=== PATIENT | female | born 1970 | race Caucasian/White ===

== ENCOUNTER → 2016-10-29 | Outpatient (CLI) | payer BC ==
[2016-10-29 14:35] VITALS: BP 132/85; PULSE 77; RESP 16; TEMP 98.3; BMI 36.6
[2016-10-29 15:04] LABS: EKG EKG PERFORMED
[2016-10-29 15:42] LABS: CH 31.5; CHCM 34.1; HCT 42.9 % (34.0-46.0); HDW 2.48; HGB 14.3 gm/dL (11.4-16.0); MCHC 33.4 g/dL (31.0-37.0); MCV 92.7 fL (80.0-100.0); Mean Platelet Volume 7.1; RBC 4.62 m/uL (3.80-5.40); RDW 12.7 % (11.5-15.5); WBC 7.2 k/uL (3.8-10.6)
[2016-10-29 16:07] LABS: ALT 76 U/L (9-52); AST 56 U/L (14-36); Alkaline Phosphatase 83 U/L (38-126); Blood Urea Nitrogen 14 mg/dL (7-17); Calcium 9.5 mg/dL (8.4-10.2); Carbon Dioxide 27 mmol/L (22-30); Chloride 105 mmol/L (98-107); Cholesterol 273 mg/dL (<200); Glucose 89 mg/dL (74-99); HDL Cholesterol 64 mg/dL (40-60); Iron 107 ug/dL (37-170); Non-African American GFR(MDRD) >60 (>60 ml/min/1.73 sqM); Potassium 4.7 mmol/L (3.5-5.1); Total Bilirubin 0.6 mg/dL (0.2-1.3); Total Protein 7.8 g/dL (6.3-8.2); Triglycerides 415 mg/dL (<150)
[2016-10-29 16:16] LABS: % Iron Saturation 31.6 % (20-50); Total Iron Binding Capacity 339 ug/dL (265-497)
[2016-10-29 16:46] LABS: Anion Gap 10 mmol/L; Sodium 142 mmol/L (137-145)
[2016-10-29 17:13] LABS: Vitamin B12 616 pg/mL (239-931)
[2016-10-29 20:28] LABS: Hemoglobin A1C 4.9 % (4.2-6.1)
--- NOTE | 2016-12-14 21:39 | P.PN ---
Progress Note - Text DATE OF CONSULTATION: 10/29/2016. CHIEF COMPLAINT: Initial bariatric assessment. HISTORY OF PRESENT ILLNESS: Kayy Dean is a 46-year-old female who presents for her initial evaluation for weight loss procedures. At present she is evaluating for gastric bypass. She reports having family friend who also had a bariatric procedure. She also reports a strong family history of morbid obesity in her brother, daughter including her mother. She attempted weight loss in the past including [employer], [employer] [place] and has been able to lose anywhere between 25 to 30 pounds. Her highest weight is at present, 238 pounds. Her personal goal is get down to 160 pounds. As a result of her obesity, she reports severe lower back pain. She is also recommended to undergo a spinal fusion. She reports osteoarthritis of both hips--left side is worse than the right. She also reports bilateral knee pain--worse on the right. She also has bilateral ankle swelling. She denies any familial history of esophageal or stomach cancer. No personal history of inflammatory bowel disease are within her family. She denies any food allergies or lupus. No reports of diabetes in her family with the exception of hypertension. She does have known history of diverticulosis. Separately, she reports that she has her gallbladder removed. At her height of 5 feet 6 inches, her ideal body weight is 154 pounds. She is 73 pounds overweight. Present body mass index is 36.6. PAST MEDICAL HISTORY: 1. Osteoarthritis of the bilateral knees. 2. Diverticulosis. 3. Psoriasis. PAST SURGICAL HISTORY: 1. Cholecystectomy. 2. Hysterectomy. 3. Back surgery. 4. Appendectomy. FAMILY HISTORY: Pertinent for hypertension including morbid obesity. SOCIAL HISTORY: Lifelong nontobacco user. REVIEW OF SYSTEMS: CONSTITUTIONAL: [place] body weight for her 5'6" frame 154 pounds. She comes in weighing 227 pounds. She is 73 pounds overweight. Body mass is 36.6. HEENT: Denies any problems with vision, hearing. No reports of dysphagia. ENDOCRINE: No reports of thyroid disorder or diabetes type 2. RESPIRATORY: Denies history of pneumonia or dyspnea on exertion. CARDIOVASCULAR: No reports of chest pain or heart attack. GASTROINTESTINAL: Denies any dumping syndrome, diarrhea, constipation. MUSCULOSKELETAL: Has severe osteoarthritis of the bilateral knees including of the lower back. PSYCH: No reports of depression or suicidal ideation. HEMATOLOGIC: No reports of DVTs or anemia. PHYSICAL EXAM: VITAL SIGNS: 98.3, 77, 16, 132/85, 5 feet 6 inches, 227 pounds. Body mass is 36.6. GENERAL: Well-developed female in no acute distress. HEENT: No scleral icterus. Extraocular movements grossly intact. Moist buccal mucosa. NECK: Supple without lymphadenopathy. CHEST: Nonlabored respirations. Equal bilateral excursions. CARDIOVASCULAR: Regular rate and rhythm. ABDOMEN: Soft, nontender, nondistended. MUSCULOSKELETAL: Pinpoint tenderness along the lower back. NEURO: No focal or lateralizing signs. Cranial nerves II through XII grossly within normal limits. PSYCH: Alert and oriented to person, place, and time. LABS: Hemoglobin normal at 14.3. Hemoglobin A1c normal at 4.9. AST elevated at 56. ALT elevated at 76. Triglycerides elevated at 415. Cholesterol elevated at 273. HDL elevated at 64. Vitamin D low at 10.7. EKG demonstrates normal sinus rhythm. ASSESSMENT: 1. Morbid obesity due to excess calories. 2. Body mass index of 36.6. 3. 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 4. 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 5. 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 6. Family history of morbid obesity. 7. Personal history of diverticulitis. 8. Hyperlipidemia. 9. Elevated AST. 10. Elevated ALT. 11. Vitamin D deficiency. 12. Hypertension. PLAN: 1. Her laboratory results demonstrates severe hypertriglyceridemia including hypercholesterolemia and may benefit from medicinal therapy. 2. She has severe vitamin D deficiency for which vitamin D supplement advised. 3. She is evaluating for weight loss procedures for which she is looking into gastrectomy-type options. [place] [facility] data was reviewed, including benefits and risks of each and potential weight loss. 4. Will need psych assessment per insurance guidelines. 5. Will need medical risk assessment per insurance guidelines. 6. With her history of elevated liver enzymes, may also benefit from an ultrasound. 7. Recommended follow-up upon completion of her bariatric profile. 8. Recommend upper endoscopy for gastrectomy procedures.
== END | disposition home or self-care (01) ==
LOC: BARWHC3 13:59
PROVIDERS: ATTEND Surgery Plastic and Reconstructive Surgery
DX: Z01.818 Encounter for other preprocedural examination (principal); E66.01 Morbid (severe) obesity due to excess calories; E89.1 Postprocedural hypoinsulinemia; D50.8 Other iron deficiency anemias; E44.0 Moderate protein-calorie malnutrition; E55.9 Vitamin D deficiency, unspecified; G47.30 Sleep apnea, unspecified; Z68.38 Body mass index [BMI] 38.0-38.9, adult
CPT/HCPCS: 36415; 80053; 80061; 82306; 82607; 82728; 82746; 83036; 83540; 83550; 84425; 84443; 85027; 93005; 99201

== ENCOUNTER 2017-04-08 08:26 | Day surgery (SDC) | payer BC ==
[2017-03-16 15:21] VITALS: BMI 36.6
[~2017-04-08 08:26] MED LIST: LACTATED RINGERS 1,000 ML IV SCH; LIDOCAINE 1% 20 ML VIAL (10MG/ML) FOR IV START INTRADERMA PRN
--- NOTE | 2017-04-08 09:03 | P.GSHP ---
History of Present Illness H&P Date: 04/08/17 CHIEF COMPLAINT: GERD and colon screen HISTORY OF PRESENT ILLNESS: The patient is a 47-year-old female who presents reports gastroesophageal reflux disease and need for colon screen. Upper and lower endoscopy were offered for further evaluation and management. PAST MEDICAL HISTORY: Please see list. PAST SURGICAL HISTORY: Please see list. MEDICATIONS: Please see list. ALLERGIES: Please see list. SOCIAL HISTORY: No illicit drug use FAMILY HISTORY: No reports of Crohn disease or ulcerative colitis. REVIEW OF ORGAN SYSTEMS: CONSTITUTIONAL: No reports of fevers or chills. GI: Denies any blood in stools or constipation. PHYSICAL EXAM: VITAL SIGNS: Stable GENERAL: Well-developed pleasant in no acute distress. HEENT: No scleral icterus. Extraocular movements grossly intact. Moist buccal mucosa. NECK: Supple without lymphadenopathy. CHEST: Unlabored respirations. Equal bilateral excursions. CARDIOVASCULAR: Regular rate and rhythm. Distal 2+ pulses. ABDOMEN: Soft, nondistended. MUSCULOSKELETAL: No clubbing, cyanosis, or edema. ASSESSMENT: 1. Gastroesophageal reflux disease 2. Colon screen. PLAN: 1. Recommend proceeding with an upper and lower endoscopy Past Medical History Past Medical History: Cancer, Chest Pain / Angina, Skin Disorder, Thyroid Disorder Additional Past Medical History / Comment(s): psoriasis, hx migraines, diverticulitis, hx cervical cancer, vit D deficiency, recent episode of chest pain, HAD STRESS TEST THAT WAS NEGATIVE History of Any Multi-Drug Resistant Organisms: MRSA Date of last positivie culture/infection: 2010 MDRO Source:: rt axilla Past Surgical History: Appendectomy, Back Surgery, Cholecystectomy, Hysterectomy Additional Past Surgical History / Comment(s): laminectomy Past Anesthesia/Blood Transfusion Reactions: Motion Sickness Past Psychological History: Anxiety Smoking Status: Never smoker Past Alcohol Use History: Rare Past Drug Use History: None Reported - Past Family History Mother Family Medical History: Cancer Medications and Allergies Home Medications Medication Instructions Recorded Confirmed Type HYDROcodone/APAP 10-325MG [[place] 1 tab PO TID PRN 09/24/16 04/06/17 History 10-325] Ibuprofen [Motrin] 800 mg PO HS 03/16/17 04/06/17 History Vitamin D(Dose Unknown) 1 tab PO DAILY 03/16/17 04/06/17 History Westhroid 1 tab PO DAILY 03/16/17 04/06/17 History Allergies Allergy/AdvReac Type Severity Reaction Status Date / Time No Known Allergies Allergy Verified 04/08/17 09:02
[2017-04-08 09:15] VITALS: RESP 16; TEMP 98.4
[2017-04-08] MEDS: LACTATED RINGERS 1,000 ML IV SCH ×2 (09:15→09:55)
[2017-04-08] MEDS ORDERED: PROPOFOL 10 MG/ML 20 ML VIAL IV ONE (09:57)
[2017-04-08] MEDS ORDERED: LIDOCAINE 1% INJ 10MG/ML (20 ML MDV) ONE (09:57)
--- NOTE | 2017-04-08 10:10 | P.PCN ---
Date of Procedure: 04/08/17 Preoperative Diagnosis: Postoperative Diagnosis: Procedure(s) Performed: Implants: Indications for Procedure: Operative Findings: Description of Procedure: PREOPERATIVE DIAGNOSIS: Gastroesophageal reflux disease. Morbid obesity. POSTOPERATIVE DIAGNOSIS: Morbid obesity. Gastritis. Gastroesophageal reflux disease. Acute on chronic gastric ulcer along the antrum. Gastric polyps. OPERATION: Esophagogastroduodenoscopy with biopsies along antrum. SURGEON: Lidia Fiore MD ANESTHESIA: MAC. INDICATIONS: The patient is a 47-year-old female who presents with a history of reflux disease. Benefits and risks of the procedure were described. Informed consent was obtained. DESCRIPTION: The patient was brought into the endoscopy suite and laid in the left lateral decubitus position. An Olympus gastroscope was passed along the posterior oropharynx down to the distal esophagus where the squamocolumnar junction was encountered at 35 cm from the incisors. The stomach was entered and no bile reflux was found. Additional findings are listed below. Biopsies with cold forceps were obtained of the antrum. The first through third portion of the duodenum was examined and unremarkable. Retroflexion of the scope confirmed Hill grade 3 lower esophageal valve. The squamocolumnar junction no acute LA grade A erosive esophagitis. The stomach was desufflated. The patient tolerated the procedure well. FINDINGS: Squamocolumnar junction 38 cm from the incisors. Diaphragmatic hiatus at 38 cm. Hill grade 3 lower esophageal valve. No LA grade A erosive esophagitis. No active duodenitis. Acute and chronic gastric ulcer 3 mm along antrum biopsied. Diffuse gastritis along the antrum. Gastric polyps along gastric fundus, hyperplastic type 4 mm in size. RECOMMENDATIONS: Start medical therapy. Further recommendations pending results of pathology report. Upper endoscopy as needed. Plan - Discharge Summary New Discharge Prescriptions: No Action HYDROcodone/APAP 10-325MG [[place] 10-325] 1 tab PO TID PRN PRN Reason: Pain Westhroid 1 tab PO DAILY Ibuprofen [Motrin] 800 mg PO HS Vitamin D(Dose Unknown) 1 tab PO DAILY Discharge Medication List HYDROcodone/APAP 10-325MG [[place] 10-325] 1 tab PO TID PRN 09/24/16 [History] Ibuprofen [Motrin] 800 mg PO HS 03/16/17 [History] Vitamin D(Dose Unknown) 1 tab PO DAILY 03/16/17 [History] Westhroid 1 tab PO DAILY 03/16/17 [History]
--- NOTE | 2017-04-08 10:25 | P.PCN ---
Date of Procedure: 04/08/17 Preoperative Diagnosis: Postoperative Diagnosis: Procedure(s) Performed: Implants: Indications for Procedure: Operative Findings: Description of Procedure: PREOPERATIVE DIAGNOSIS: Diverticulitis. POSTOPERATIVE DIAGNOSIS: Diverticulosis, scattered. OPERATION: Colonoscopy to the ileocecal valve and appendiceal orifice. SURGEON: Lidia Fiore MD. ANESTHESIA: MAC. INDICATIONS: The patient is a 47-year-old female who presents with history of diverticulitis. Benefits and risks were described and informed consent was obtained. DESCRIPTION OF PROCEDURE: The patient had undergone Gatorade, MiraLAX and Dulcolax prep. She had been brought into the operating room and laid in the left lateral decubitus position. After adequate intravenous sedation, the rectum was examined with 2% lidocaine jelly. No external hemorrhoids were encountered. The rectal tone was within normal limits. No lesions were palpated in the rectal vault. An Olympus colonoscope was advanced until the ileocecal valve and appendiceal orifice were clearly viewed. The prep was excellent with clear visualization of the mucosal folds. The scope was removed with visualization of each mucosal fold. Scattered diverticulosis was encountered. Mild narrowing at 20 cm from the anal verge was found. No colonic polyps were found. No evidence of focal colitis was found. Retroflexion of the scope demonstrated grade 1 internal hemorrhoids without active bleeding or inflammation. The colon was desufflated. The patient had tolerated the procedure well. Withdrawal time was over 6 minutes. FINDINGS: Internal hemorrhoids, grade 1 No external prolapsed hemorrhoids. No arteriovenous malformations. No adenomatous polyps. No focal colitis. Scattered diverticulosis. Mild narrowing at 20 cm from the anal verge was found. RECOMMENDATIONS: Lower endoscopy in 10 years per screening guidelines, 2026.
[2017-04-08 11:33] VITALS: BP 129/73; PULSE 79
== END 2017-04-08 11:28 | disposition home or self-care (01) ==
LOC: ORWHC2ENDO 08:26
PROVIDERS: ATTEND Surgery Plastic and Reconstructive Surgery
DX: Z12.11 Encounter for screening for malignant neoplasm of colon (principal); K29.50 Unspecified chronic gastritis without bleeding; K57.30 Diverticulosis of large intestine without perforation or abscess without bleeding; K64.0 First degree hemorrhoids; K21.9 Gastro-esophageal reflux disease without esophagitis; K25.3 Acute gastric ulcer without hemorrhage or perforation; K25.7 Chronic gastric ulcer without hemorrhage or perforation; K31.7 Polyp of stomach and duodenum; E66.01 Morbid (severe) obesity due to excess calories; E07.9 Disorder of thyroid, unspecified; F41.9 Anxiety disorder, unspecified; Z86.14 Personal history of Methicillin resistant Staphylococcus aureus infection; Z79.1 Long term (current) use of non-steroidal anti-inflammatories (NSAID); Z79.899 Other long term (current) drug therapy
CPT/HCPCS: 88305; 88342; 43239; J2001; J2704; G0121

== ENCOUNTER → 2017-05-13 | Outpatient (CLI) | payer BC ==
[2017-05-13 15:52] VITALS: BP 115/72; PULSE 91; TEMP 98.1; BMI 37.5
--- NOTE | 2017-06-06 18:07 | P.PN ---
Progress Note - Text DATE OF CONSULTATION: 05/13/2017. CHIEF COMPLAINT: Bariatric assessment. HISTORY OF PRESENT ILLNESS: Kayy Dean is a 46-year-old female who presents is evaluating for gastric bypass. She presented to the bariatric Center in October 2016. At her height of 5 foot 6 inches, her ideal body weight is 154 pounds. Her highest weight was 238 pounds. Today she is 232 pounds. Her body mass index is reduced from 38.5 to 37.6. She is 78 pounds overweight. Since her last evaluation, she was started on thyroid medications. As a result of her obesity, she developed osteoarthritis of the bilateral lower extremities including sleep apnea. PAST MEDICAL HISTORY: 1. Osteoarthritis of the bilateral knees. 2. Diverticulosis. 3. Psoriasis. 4. Hypertriglyceridemia. 5. Hypercholesterolemia. 6. Vitamin D deficiency. PAST SURGICAL HISTORY: 1. Cholecystectomy. 2. Hysterectomy. 3. Back surgery. 4. Appendectomy. MEDICATIONS: 1. Synthroid. 2. Vitamin D. 3. [place]. 4. Omeprazole. FAMILY HISTORY: Pertinent for hypertension including morbid obesity. SOCIAL HISTORY: Lifelong nontobacco user. REVIEW OF SYSTEMS: CONSTITUTIONAL: [place] body weight for her 5'6" frame 154 pounds. She comes in weighing 227 pounds. She is 73 pounds overweight. Body mass is 36.6. HEENT: Denies any problems with vision, hearing. No reports of dysphagia. ENDOCRINE: No reports of diabetes type 2. New diagnosis of hypothyroidism. RESPIRATORY: Denies history of pneumonia or dyspnea on exertion. CARDIOVASCULAR: No reports of chest pain or heart attack. Hypercholesterolemia including elevated triglycerides. EKG demonstrates normal sinus rhythm. GASTROINTESTINAL: Denies any dumping syndrome, diarrhea, constipation. Has diverticulitis. MUSCULOSKELETAL: Has severe osteoarthritis of the bilateral knees including of the lower back. PSYCH: No reports of depression or suicidal ideation. HEMATOLOGIC: No reports of DVTs or anemia. SKIN: No rash or skin cancer. PHYSICAL EXAM: VITAL SIGNS: 5 feet 6 inches, 232 pounds. Body mass is 37.6. Vital Signs Temp 98.1 F 05/13/17 15:48 Pulse 91 05/13/17 15:48 Resp BP 115/72 05/13/17 15:48 Pulse Ox GENERAL: Well-developed female in no acute distress. HEENT: No scleral icterus. Extraocular movements grossly intact. Moist buccal mucosa. NECK: Supple without lymphadenopathy. CHEST: Nonlabored respirations. Equal bilateral excursions. CARDIOVASCULAR: Regular rate and rhythm. ABDOMEN: Soft, nontender, nondistended. MUSCULOSKELETAL: Pinpoint tenderness along the lower back. NEURO: No focal or lateralizing signs. Cranial nerves II through XII grossly within normal limits. PSYCH: Alert and oriented to person, place, and time. SKIN: Well perfused. Good skin turgor. EGD FINDINGS: Squamocolumnar junction 38 cm from the incisors. Diaphragmatic hiatus at 38 cm. Hill grade 3 lower esophageal valve. No LA grade A erosive esophagitis. No active duodenitis. Acute and chronic gastric ulcer 3 mm along antrum biopsied. Diffuse gastritis along the antrum. Gastric polyps along gastric fundus, hyperplastic type 4 mm in size. ASSESSMENT: 1. Morbid obesity due to excess calories. 2. Body mass index of 36.6. 3. 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 4. 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 5. 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 6. Family history of morbid obesity. 7. Personal history of diverticulitis. 8. Hyperlipidemia. 9. Elevated AST. 10. Elevated ALT. 11. Vitamin D deficiency. 12. Hypertension. 13. Hypercholesterolemia. 14. Metabolic syndrome. 15. Diverticulosis. 16. Chronic gastritis. 17. Hypothyroidism. PLAN: 1. She reports trouble with sleeping recommend evaluation for sleep apnea. 2. An increased dose of vitamin D was written on her behalf. 3. Recommend completion of medical supplies weight loss. 4. Psych assessment per discharge guidelines. 5. Medical risk assessment pending. 6. She has completed an upper endoscopy with no contraindication to gastrectomy type procedures at this time such as a sleeve gastrectomy.
== END | disposition home or self-care (01) ==
LOC: BARWHC3 14:39
PROVIDERS: ATTEND Surgery Plastic and Reconstructive Surgery
DX: Z01.818 Encounter for other preprocedural examination (principal); E66.01 Morbid (severe) obesity due to excess calories; M47.816 Spondylosis without myelopathy or radiculopathy, lumbar region; M17.0 Bilateral primary osteoarthritis of knee; M16.0 Bilateral primary osteoarthritis of hip; E78.5 Hyperlipidemia, unspecified; R74.8 Abnormal levels of other serum enzymes; E55.9 Vitamin D deficiency, unspecified; I10 Essential (primary) hypertension; E78.00 Pure hypercholesterolemia, unspecified; E88.81 Metabolic syndrome and other insulin resistance; K57.90 Diverticulosis of intestine, part unspecified, without perforation or abscess without bleeding; K29.50 Unspecified chronic gastritis without bleeding; E03.9 Hypothyroidism, unspecified; Z68.36 Body mass index [BMI] 36.0-36.9, adult
CPT/HCPCS: 99211

== ENCOUNTER → 2017-07-17 | Outpatient (CLI) | payer BC ==
--- NOTE | 2017-07-17 12:59 | CT ---
EXAMINATION TYPE: CT lumbar spine wo con DATE OF EXAM: 07/17/2017 12:15 PM COMPARISON: NONE HISTORY: Patient complains of low back pain, left leg weakness, and recent fall. CT DLP: 1372.7 mGycm Automated exposure control for dose reduction was used. TECHNIQUE: Unenhanced CT of the lumbar spine was performed. Bone and soft tissue window settings are submitted as well as coronal and sagittal reconstructions. Pedicular screws and fixation rods traverse the L2-L5 vertebral bodies although pedicular screws are not placed at L2. Intervertebral disc spacers are seen at these levels. Multilevel right hemilaminect kay defects are also seen. Cholecystectomy clips are noted within the right upper quadrant and surgic al clips/suture are seen in the right lower quadrant likely from prior appendectomy. There is slight retrolisthesis of L3 with respect to L4. Remainder of the lumbar spine maintain deanne l alignment. Vertebral body heights are maintained. L1-L2: Small broad-based disc bulge is present resulting in mild bilateral neural foraminal narrowing . No spinal canal stenosis. L2-L3: Discectomy has been performed with intervertebral disc spacer although soft tissue density is seen extending into the right neural foramen on series 3 image 43 and series 9 image 26. This could r elate to residual disc herniation or epidural fibrosis. Left neural foramen and spinal canal are fraga nt. L3-L4: There is a right hemilaminectomy and intervertebral disc resection with intervertebral disc sp acer. Left moderate facet arthropathy is seen resulting in moderate left neural foraminal narrowing. Right neuroforamen and spinal canal remain patent. L4-L5: Again there is a right hemilaminectomy with mild left facet arthropathy, intervertebral disc s pacer and disc resection. Soft tissue density is seen surrounding the right lateral aspect of the the david sac and right neural foramen on series 3 image 61, likely due to epidural fibrosis. Left lateral recess and neural foramen appear patent. Minimal left facet arthropathy is noted. Soft tissue density does narrow the spinal canal in a transverse dimension mildly and at least moderately narrow the rig ht neural foramen. L5-S1: Normal disc space height. No disc herniation protrusion or central stenosis. No facet joint arthropathy. No evidence for foraminal encroachment. IMPRESSION: 1. Multilevel postsurgical change of the lumbar spine with soft tissue density seen in the right late ral recess and surrounding the right neural foramen at L2-L3 and acentrically surrounding the distal thecal sac and extending into the right neural foramen at L4-L5. At L4-L5 this is favored to represen t epidural fibrosis. At L2-3 this could represent residual disc herniation versus epidural fibrosis. Enhanced CT or MR could be performed for further evaluation as there is resultant mild spinal canal s tenosis at L4-5 and at least moderate neural foraminal narrowing at these levels. 2. Slight retrolisthesis of L3 on L4 without spinal canal stenosis at this level.
== END | disposition home or self-care (01) ==
LOC: RADCTMAIN 11:54
PROVIDERS: ATTEND Neurological Surgery
DX: M48.061 Spinal stenosis, lumbar region without neurogenic claudication (principal); M99.73 Connective tissue and disc stenosis of intervertebral foramina of lumbar region; M43.16 Spondylolisthesis, lumbar region; M96.1 Postlaminectomy syndrome, not elsewhere classified
CPT/HCPCS: 72131

== ENCOUNTER → 2018-01-18 | Outpatient (CLI) | payer BC ==
[2018-01-18 12:38] VITALS: BMI 38.3
== END ==
LOC: BARWHC3 08:39
PROVIDERS: ATTEND Surgery Plastic and Reconstructive Surgery
DX: E66.01 Morbid (severe) obesity due to excess calories (principal); Z68.38 Body mass index [BMI] 38.0-38.9, adult
CPT/HCPCS: 97804

== ENCOUNTER → 2018-02-09 | Outpatient (CLI) | payer BC ==
--- NOTE | 2018-02-09 15:33 | CONS ---
CONSULTATION A 47-year-old female patient who is seeking bariatric surgery. She has chronic back pain related to the lumbar disc disease and she has undergone previous lumbar spine surgery with fusion. Since then, her condition has gotten worse. She is having more pain and weakness in lower extremities and her surgeon has recently suggested bariatric surgery to help with her chronic back issues. She has seen Dr. Fiore in that regard. Dr. Fiore thought that the patient's BMI is not quite elevated and she is seeking other comorbidities to support her claim for bariatric surgery and for that reason, the patient was referred to me to be investigated for sleep apnea. Upon further inquiry, the patient does not have any major hypersomnia or sleepiness. In fact, she has chronic insomnia. She goes to bed very late somewhere between 2 to 5 am in the morning. She watches TV throughout the night and she and she goes to bed late. She cannot initiate sleep easily. She wakes up frequently throughout the night and she gets out of bed around 9 am. She averages around 3-4 hours of sleep at most. On and off she takes naps during the day. No intake of any caffeinated beverages such as coffee. No alcoholism. No substance abuse. She has had chronic insomnia throughout her teenage years and early 20s and this has gotten worse since the patient started having issues with back pain which was one of the main contributing factors for disrupting her sleep quality. Other contributing factors have been increased anxiety and possibly component of depression. Currently, she is on disability. She takes naps during the day and these are short lasting naps. She is not sure if she snores. She has never been told she quits breathing in the middle of the night. She denies waking up choking or gasping for air. She is excessively fatigued during the day and somewhat sleepy. No dry mouth. No grinding of the teeth. She has increased restlessness in her legs. She takes [place] for pain control at a dose of 10/325 every 4 to 6 hours. She has also tried Ambien in the past without much help to improve her sleep quality in general. She has been diagnosed having hypothyroidism, on thyroid hormone is being adjusted by her winding inspector. Her current Edmond Score is at 12. No history of any PTSD. No history of any night terrors. No history of any nightmares. No sleep paralysis. No hallucinations. No cataplexy. No morning headaches. PAST MEDICAL HISTORY: Chronic insomnia, hypothyroidism, obesity, chronic back pain, anxiety/depression. PAST SURGICAL HISTORY: Includes hysterectomy, lumbar disc disease surgery with fusion at multiple levels, cholecystectomy, appendectomy. I did note that the patient has undergone several back surgeries. Last one was in May of 2017. DRUG ALLERGIES: LATEX and ADHESIVES. OUTPATIENT MEDICATION: Includes [place] 10/325, thyroid hormone, vitamin D, Ambien and Prilosec. SOCIAL HISTORY: Patient is a nonsmoker. No history of alcohol. No history of IV drugs. She has complete disability for her back pain. FAMILY HISTORY: Positive for insomnia. Her mother has chronic insomnia and she barely sleeps. REVIEW OF SYSTEMS: A 12-point review of system was done. She has chronic pain, difficult mobility and weakness left lower extremity related to lumbar disc disease and previous spine surgery. She has some component of restlessness in lower extremities and excessive leg movement and activity. No heartburn, no palpitations, no panic attacks. No driving. No nocturia. No other complaints. PHYSICAL EXAMINATION: BP is 110/75, pulse 65, respirations 16, temperature 97.7, saturation 97% on room air. Weight is 239. Height is 5, 5. Neck size is 14.5 inches, Edmond score is 12, BMI is 37.4. GENERAL APPEARANCE: Calm, comfortable, in no acute distress. Head is atraumatic, normocephalic. NECK: Supple. There is no JVD. No goiter or neck masses. LUNGS: Clear to auscultation. HEART: Sounds regular rate and rhythm. Normal S1, S2. No S3. No murmurs. ABDOMEN: Soft, nontender. No organomegaly. EXTREMITIES: No edema. No cyanosis or clubbing. NEUROLOGIC: Alert and oriented x3. The patient has some motor weakness left lower extremity. Otherwise, cranial nerves are intact. Skin is negative for any wounds or ulceration. IMPRESSION: 1. Chronic primary insomnia. Contributing factors for chronic insomnia is pain and anxiety. 2. Questionable sleep breathing disorder/obstructive sleep apnea. 3. Obesity, body mass index is 37.4. 4. Chronic back pain. 5. Hypothyroidism. 6. Heartburn. PLAN: 1. Encourage weight loss. 2. Implement good sleep hygiene measures. The patient has some problems related to her sleep hygiene and she was given the appropriate instructions to improve her sleep hygiene measures in general. Specifically, she need to regulate her time to go to bed and waking up time. She is to avoid taking naps during the day. Avoid stimulants such as caffeine, especially in the afternoon and at bedtime. 3. Avoid alcohol. Avoid TV especially in the bedroom environment. Avoid computer work late at night time. 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 All these measures were discussed with the patient at length. Will do a home sleep study to look for any significant sleep breathing disorder that could be contributing to her sleep fragmentation. I think her problem is essentially related to primary insomnia rather than the sleep apnea. Encouraged weight loss. Will continue to follow. MMODL / IJN: [id number] /
== END | disposition home or self-care (01) ==
LOC: SLEEP 13:31
PROVIDERS: ATTEND Internal Medicine Critical Care Medicine
DX: F51.01 Primary insomnia (principal); F41.9 Anxiety disorder, unspecified; E03.9 Hypothyroidism, unspecified; E66.9 Obesity, unspecified; M54.9 Dorsalgia, unspecified; G89.29 Other chronic pain; Z68.37 Body mass index [BMI] 37.0-37.9, adult; Z79.891 Long term (current) use of opiate analgesic; Z79.899 Other long term (current) drug therapy; Z90.710 Acquired absence of both cervix and uterus; Z90.49 Acquired absence of other specified parts of digestive tract; Z90.89 Acquired absence of other organs; Z91.040 Latex allergy status; Z91.09 Other allergy status, other than to drugs and biological substances
CPT/HCPCS: 99211

== ENCOUNTER → 2018-04-07 | Outpatient (CLI) | payer BC ==
--- NOTE | 2018-04-07 16:58 | P.PN ---
Subjective Progress Note Date: 04/07/18 DATE: 04/07/2018 CHIEF COMPLAINT: Bariatric assessment. HISTORY OF PRESENT ILLNESS: Kayy Dean is a 48-year-old female who initially presented to the bariatric Center in October 2016. As a result of her obesity, she developed osteoarthritis of the bilateral lower extremities including sleep apnea. She is doing well. She is looking into the gastric bypass. At her height of 5 foot 6 inches, her ideal body weight is 154 pounds. Her highest weight was 238 pounds. Today she is 229 pounds from 232 pounds, 11 months ago. She has lost 3 pounds in 11 months. Her body mass index is reduced from 38.5 to 37.1. She is 75 pounds overweight. PAST MEDICAL HISTORY: 1. Osteoarthritis of the bilateral knees. 2. Diverticulosis. 3. Psoriasis. 4. Hypertriglyceridemia. 5. Hypercholesterolemia. 6. Vitamin D deficiency. 7. Morbid obesity, BMI 38.5, initial 8. History of chronic pain PAST SURGICAL HISTORY: 1. Cholecystectomy. 2. Hysterectomy. 3. Back surgery. 4. Appendectomy. MEDICATIONS: 1. Synthroid. 2. Vitamin D. 3. [place]. 4. Omeprazole. FAMILY HISTORY: Pertinent for hypertension including morbid obesity. SOCIAL HISTORY: Lifelong nontobacco user. REVIEW OF SYSTEMS: CONSTITUTIONAL: At her height of 5 foot 6 inches, her ideal body weight is 154 pounds. Her highest weight was 238 pounds. Today she is 229 pounds from 232 pounds, 11 months ago. She has lost 3 pounds in 11 months. Her body mass index is reduced from 38.5 to 37.1. She is 75 pounds overweight. HEENT: Denies any problems with vision, hearing. No reports of dysphagia. ENDOCRINE: No reports of diabetes type 2. New diagnosis of hypothyroidism. RESPIRATORY: Denies history of pneumonia or dyspnea on exertion. CARDIOVASCULAR: No reports of chest pain or heart attack. Hypercholesterolemia including elevated triglycerides. EKG demonstrates normal sinus rhythm. GASTROINTESTINAL: Denies any dumping syndrome, diarrhea, constipation. Has diverticulitis. MUSCULOSKELETAL: Has severe osteoarthritis of the bilateral knees including of the lower back. Has chronic pain. PSYCH: No reports of depression or suicidal ideation. HEMATOLOGIC: No reports of DVTs or anemia. SKIN: No rash or skin cancer. PHYSICAL EXAM: VITAL SIGNS: 5 feet 6 inches, 229 pounds. Body mass is 37.1 GENERAL: Well-developed female in no acute distress. HEENT: No scleral icterus. Extraocular movements grossly intact. Moist buccal mucosa. NECK: Supple without lymphadenopathy. CHEST: Nonlabored respirations. Equal bilateral excursions. CARDIOVASCULAR: Regular rate and rhythm. ABDOMEN: Soft, nontender, nondistended. No hernias. MUSCULOSKELETAL: Pinpoint tenderness along the lower back. NEURO: No focal or lateralizing signs. Cranial nerves II through XII grossly within normal limits. PSYCH: Alert and oriented to person, place, and time. SKIN: Well perfused. Good skin turgor. EGD FINDINGS: Squamocolumnar junction 38 cm from the incisors. Diaphragmatic hiatus at 38 cm. Hill grade 3 lower esophageal valve. No LA grade A erosive esophagitis. No active duodenitis. Acute and chronic gastric ulcer 3 mm along antrum biopsied. Diffuse gastritis along the antrum. Gastric polyps along gastric fundus, hyperplastic type 4 mm in size. ASSESSMENT: 1. Morbid obesity due to excess calories. 2. Body mass index of 37.1 3. 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 4. 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 5. 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 6. Family history of morbid obesity. 7. Personal history of diverticulitis. 8. Hyperlipidemia. 9. Elevated AST. 10. Elevated ALT. 11. Vitamin D deficiency. 12. Hypertension. 13. Hypercholesterolemia. 14. Metabolic syndrome. 15. Diverticulosis. 16. Chronic gastritis. 17. Hypothyroidism. 18. Chronic pain syndrome PLAN: 1. She is looking into the gastric bypass. 2. She also has [place] 10 at home and in a pain contract. 3. Recommended dietary classes. 4. Bariatric options between a sleeve, band and a David-en-Y gastric bypass were reviewed in detail. She elected for gastric bypass. Robotic assisted approach described. 5. The [place] [facility] Data was also reviewed with benefits and risks as described. 6. An 8 page second-generation bariatric consent form was reviewed in detail including potential of bleeding, infection, leaks, adequate weight loss, nutritional deficiencies which he demonstrated understanding of the risks. 7. A 2 week high-protein low caloric 800 kcal diet described to address hepatomegaly. 8. Preoperative labs including complete metabolic panel and CBC with type and screen recommended. 9. DVT prophylaxis per [place] [facility]. 10. Antibiotic prophylaxis. 11. Inpatient hospitalization anticipated for more than 2 nights. 12. All questions and concerns were addressed with the patient.
[2018-04-07 17:17] VITALS: BMI 37.0
== END | disposition home or self-care (01) ==
LOC: BARWHC3 14:58
PROVIDERS: ATTEND Surgery Plastic and Reconstructive Surgery
DX: Z48.815 Encounter for surgical aftercare following surgery on the digestive system (principal); E66.01 Morbid (severe) obesity due to excess calories; M47.816 Spondylosis without myelopathy or radiculopathy, lumbar region; M16.0 Bilateral primary osteoarthritis of hip; M17.0 Bilateral primary osteoarthritis of knee; E78.5 Hyperlipidemia, unspecified; E55.9 Vitamin D deficiency, unspecified; I10 Essential (primary) hypertension; E78.00 Pure hypercholesterolemia, unspecified; E88.81 Metabolic syndrome and other insulin resistance; K57.90 Diverticulosis of intestine, part unspecified, without perforation or abscess without bleeding; K29.50 Unspecified chronic gastritis without bleeding; E03.9 Hypothyroidism, unspecified; G89.4 Chronic pain syndrome; R74.0 Nonspecific elevation of levels of transaminase and lactic acid dehydrogenase [LDH]; Z68.37 Body mass index [BMI] 37.0-37.9, adult; Z83.49 Family history of other endocrine, nutritional and metabolic diseases; Z90.49 Acquired absence of other specified parts of digestive tract; Z90.710 Acquired absence of both cervix and uterus; Z90.89 Acquired absence of other organs; Z79.899 Other long term (current) drug therapy; Z79.891 Long term (current) use of opiate analgesic; Z98.84 Bariatric surgery status; Z98.890 Other specified postprocedural states
CPT/HCPCS: 99211

== ENCOUNTER → 2018-04-09 | Outpatient (CLI) | payer BC ==
[2018-04-09 15:41] LABS: Basophils # (A) 0.1 k/uL (0-0.2); Basophils % (A) 1 %; Eosinophils # (A) 0.1 k/uL (0-0.7); Eosinophils % (A) 2 %; HCT 40.4 % (34.0-46.0); Lymphocytes # (A) 2.4 k/uL (1.0-4.8); Lymphocytes % (A) 40 %; MCH 28.9 pg (25.0-35.0); MCHC 32.3 g/dL (31.0-37.0); MCV 89.5 fL (80.0-100.0); Mean Platelet Volume 6.5; Monocytes # (A) 0.4 k/uL (0-1.0); Monocytes % (A) 6 %; Neutrophils % (A) 49 %; Platelet Count 281 k/uL (150-450); RBC 4.51 m/uL (3.80-5.40); RDW 12.7 % (11.5-15.5); WBC 6.1 k/uL (3.8-10.6)
[2018-04-09 15:51] LABS: ALT 59 U/L (9-52); AST 46 U/L (14-36); Albumin 4.3 g/dL (3.5-5.0); Alkaline Phosphatase 69 U/L (38-126); Anion Gap 6 mmol/L; Blood Urea Nitrogen 17 mg/dL (7-17); Calcium 9.3 mg/dL (8.4-10.2); Carbon Dioxide 28 mmol/L (22-30); Chloride 106 mmol/L (98-107); Glucose 90 mg/dL (74-99); Potassium 4.3 mmol/L (3.5-5.1); Sodium 140 mmol/L (137-145); Total Bilirubin 0.5 mg/dL (0.2-1.3); Total Protein 6.9 g/dL (6.3-8.2)
== END | disposition home or self-care (01) ==
LOC: LABPAT 14:41
PROVIDERS: ATTEND Surgery Plastic and Reconstructive Surgery
DX: Z01.812 Encounter for preprocedural laboratory examination (principal)
CPT/HCPCS: 36415; 80053; 85025; 93005

== ENCOUNTER 2018-04-19 11:27 | Inpatient (IN) | payer BC, MEDICARE ==
--- NOTE | 2018-04-07 16:52 | P.PN ---
Subjective Progress Note Date: 04/07/18 HPI: She is doing well. ABDOMEN: No hernias. PLAN: 1. Doing well. 2. No issues. 3. She is looking into the gastric bypass
--- NOTE | 2018-04-19 10:07 | P.GSHP ---
History of Present Illness H&P Date: 04/19/18 DATE OF SERVICE: 04/19/2018 CHIEF COMPLAINT: Morbid obesity HISTORY OF PRESENT ILLNESS: Kayy Dean is a 48-year-old female who presents is evaluating for gastric bypass. She presented to the bariatric Center in October 2016. At her height of 5 foot 6 inches, her ideal body weight is 154 pounds. Her highest weight was 238 pounds. Her body mass index is 38.6. Since her last evaluation, she was started on thyroid medications. As a result of her obesity, she developed osteoarthritis of the bilateral lower extremities including sleep apnea. PAST MEDICAL HISTORY: 1. Osteoarthritis of the bilateral knees. 2. Diverticulosis. 3. Psoriasis. 4. Hypertriglyceridemia. 5. Hypercholesterolemia. 6. Vitamin D deficiency. PAST SURGICAL HISTORY: 1. Cholecystectomy. 2. Hysterectomy. 3. Back surgery. 4. Appendectomy. MEDICATIONS: 1. Synthroid. 2. Vitamin D. 3. [place]. 4. Omeprazole. FAMILY HISTORY: Pertinent for hypertension including morbid obesity. SOCIAL HISTORY: Lifelong nontobacco user. REVIEW OF SYSTEMS: CONSTITUTIONAL: [place] body weight for her 5'6" frame 154 pounds. She comes in weighing 238 pounds. HEENT: Denies any problems with vision, hearing. No reports of dysphagia. ENDOCRINE: No reports of diabetes type 2. New diagnosis of hypothyroidism. RESPIRATORY: Denies history of pneumonia or dyspnea on exertion. CARDIOVASCULAR: No reports of chest pain or heart attack. Hypercholesterolemia including elevated triglycerides. EKG demonstrates normal sinus rhythm. GASTROINTESTINAL: Denies any dumping syndrome, diarrhea, constipation. Has diverticulitis. MUSCULOSKELETAL: Has severe osteoarthritis of the bilateral knees including of the lower back. PSYCH: No reports of depression or suicidal ideation. HEMATOLOGIC: No reports of DVTs or anemia. SKIN: No rash or skin cancer. PHYSICAL EXAM: VITAL SIGNS: 5 feet 6 inches, 238 pounds. Body mass is 38.6 GENERAL: Well-developed female in no acute distress. HEENT: No scleral icterus. Extraocular movements grossly intact. Moist buccal mucosa. NECK: Supple without lymphadenopathy. CHEST: Nonlabored respirations. Equal bilateral excursions. CARDIOVASCULAR: Regular rate and rhythm. ABDOMEN: Soft, nontender, nondistended. MUSCULOSKELETAL: Pinpoint tenderness along the lower back. NEURO: No focal or lateralizing signs. Cranial nerves II through XII grossly within normal limits. PSYCH: Alert and oriented to person, place, and time. SKIN: Well perfused. Good skin turgor. ASSESSMENT: 1. Morbid obesity due to excess calories. 2. Body mass index of 8.6 3. 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 4. 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 5. 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 6. Family history of morbid obesity. 7. Personal history of diverticulitis. 8. Hyperlipidemia. 9. Elevated AST. 10. Elevated ALT. 11. Vitamin D deficiency. 12. Hypertension. 13. Hypercholesterolemia. 14. Metabolic syndrome. 15. Diverticulosis. 16. Chronic gastritis. 17. Hypothyroidism. PLAN: 1. Benefits and risks of robotic gastric bypass described. 2. Inpatient hospitalization of 2+ nights described 3. DVT prophylaxis 4. Antibiotic prophylaxis Past Medical History Past Medical History: Cancer, Fibromyalgia, Neurologic Disorder, Skin Disorder, Thyroid Disorder Additional Past Medical History / Comment(s): psoriasis, hx migraines, diverticulitis, hx cervical cancer History of Any Multi-Drug Resistant Organisms: MRSA Date of last positivie culture/infection: 2010 MDRO Source:: rt axilla Past Surgical History: Appendectomy, Back Surgery, Cholecystectomy, Hysterectomy Additional Past Surgical History / Comment(s): laminectomy, EGD Past Anesthesia/Blood Transfusion Reactions: Motion Sickness Smoking Status: Never smoker - Past Family History Mother Family Medical History: Cancer Medications and Allergies Home Medications Medication Instructions Recorded Confirmed Type HYDROcodone/APAP 10-325MG [[place] 1 tab PO TID PRN 09/24/16 04/08/18 History 10-325] Ergocalciferol [Vitamin D2 50,000 unit PO MO 04/08/18 04/08/18 History (DRISDOL)] Multivitamins, Thera [Multivitamin 1 each PO DAILY 04/08/18 04/08/18 History (formulary)] Thyroid,Pork [Backus Thyroid] 180 mg PO DAILY 04/08/18 04/08/18 History Allergies Allergy/AdvReac Type Severity Reaction Status Date / Time No Known Allergies Allergy Verified 04/08/18 09:22
[~2018-04-19 11:27] MED LIST changes: +CHLORHEXIDINE GLUCONATE 15 ML CUP MUCOUS MEM ONE; +DEXAMETHASONE SOD PHOSPHATE 10 MG/ML 1 ML VIAL IV ONE; +ENOXAPARIN 40 MG/0.4 ML SYRINGE SQ STA; -LACTATED RINGERS 1,000 ML IV SCH; +PANTOPRAZOLE 40 MG/10 ML VIAL IV STA; +SCOPOLAMINE 1.5MG/72HR PATCH TRANSDERM ONE; +SCOPOLAMINE 1.5MG/72HR PATCH TRANSDERM STA; +ceFAZolin IN SWFI 2 GM/20 ML SYRINGE IVP ONE
[2018-04-19] MEDS: LACTATED RINGERS 1,000 ML IV SCH (11:58)
[2018-04-19] MEDS ORDERED: ONDANSETRON 4 MG/2 ML VIAL IVP ONE (11:58)
[2018-04-19] MEDS ORDERED: BUPIVACAIN-EPI 0.5%-1:200,000 30 ML VIAL SQ ONE (14:37)
[2018-04-19] MEDS ORDERED: LACTATED RINGERS 1,000 ML IV ONE (16:59)
[2018-04-19] MEDS ORDERED: NALOXONE 0.4 MG/ML 1 ML VIAL IV PRN (17:07)
[2018-04-19] MEDS ORDERED: diphenhydrAMINE 50 MG/ML 1 ML VIAL IVP PRN (17:07)
--- NOTE | 2018-04-19 17:07 | P.OP ---
Date of Procedure: 04/19/18 Description of Procedure: SURGEON: MARIZA TAMEZ MD ANESTHESIA TECHNICIAN: 1. MARTIN ESQUIVEL PREOPERATIVE DIAGNOSES: 1. Morbid obesity due to excess calories. 2. Body mass index of 38.6 3. 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 4. 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 5. 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 6. Family history of morbid obesity. 7. Personal history of diverticulitis. 8. Hyperlipidemia. 9. Elevated AST. 10. Elevated ALT. 11. Vitamin D deficiency. 12. Hypertension. 13. Hypercholesterolemia. 14. Metabolic syndrome. 15. Diverticulosis. 16. Chronic gastritis. 17. Hypothyroidism. POSTOPERATIVE DIAGNOSES: 1. Morbid obesity due to excess calories. 2. Body mass index of 38.6 3. 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 4. 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 5. 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 6. Family history of morbid obesity. 7. Personal history of diverticulitis. 8. Hyperlipidemia. 9. Elevated AST. 10. Elevated ALT. 11. Vitamin D deficiency. 12. Hypertension. 13. Hypercholesterolemia. 14. Metabolic syndrome. 15. Diverticulosis. 16. Chronic gastritis. 17. Hypothyroidism. OPERATION: 1. Robotic assisted da Kristina Xi laparoscopic Roro-en-Y gastric bypass, 100 cm antecolic antegastric Roro limb, with 25 mm EEA. 2. Intraoperative esophagogastrojejunoscopy. ANESTHESIA: GETA and local ESTIMATED BLOOD LOSS:50 mL SPECIMENS REMOVED: None. COMPLICATIONS: NONE. INDICATIONS: Kayy Dean is a 48-year-old female who presents is evaluating for gastric bypass. She presented to the bariatric Center in October 2016. At her height of 5 foot 6 inches, her ideal body weight is 154 pounds. Her highest weight was 238 pounds. Today she comes in weighing 224 pounds. Her body mass index was 38.6 down to 36.2. Since her last evaluation, she was started on thyroid medications. As a result of her obesity, she developed osteoarthritis of the bilateral lower extremities including sleep apnea. She now presents to undergo robotic assisted gastric bypass. A second-generation bariatric consent form was described in detail including the possibility of protein malnutrition, leaks, gastrojejunal stricture, venous thrombosis, need for further surgery for which she demonstrated understanding. Benefits and risks of the procedure were described at length. Informed consent was obtained. DESCRIPTION: The patient was brought into the operating room theater. She was placed supine. She had received Lovenox subcutaneously for DVT prophylaxis. Additionally she Peridex oral solution as an oral decontaminant was placed per anesthesia. After general induction, the abdomen was prepped and draped in standard sterile fashion. Ioban draping was placed along the abdomen. A robotic da Kristina Xi system was prepped and primed. The xiphoid to umbilicus was measured of 18 cm. Proposed port sites were marked with indelible marker along the anterior axillary line bilaterally, mid clavicular line bilaterally with each port marked 10 cm from each other. The infertility medical assistant port was marked along the right lateral lower abdominal wall. The robotic stapler port was marked for the right midclavicular line including along the left midclavicular line. A 5 mm 0 degrees laparoscopic trocar entry was performed along the left upper quadrant. The abdomen was insufflated to 15 mmHg pressure, which she tolerated well. Diagnostic laparoscopy demonstrated no injury to bowel, viscera, or mesentery. The liver surface was unremarkable. No large hiatal hernia was An 8 mm camera port was placed left lateral to the umbilicus at the epigastrium , 15 cm distal to the xiphoid. Next, 12-mm robot stapler port was placed along the right mid abdomen. An 12 mm port was exchanged along the left upper quadrant. An 8 mm port was placed on the left lateral abdominal wall under direct localization. Please note that the ports were placed 18 to 20 cm away from the target anatomy of the stomach. Care was taken to check that each robotic arm was safely away from collision with the bed or the patient. At the epigastrium, a medium sized Tiffanie liver retractor was placed under direct visualization with the Iron Short Story Writer placed under the right shoulder of the patient. The patient was repositioned in reverse Trendelenburg position at 14-degress after lowering the bed. The robot was docked over the patient. Using grasper for arm 3, a grasper for arm 1, including vessel sealer for arm 4 , the robotic system was docked and primed as described. Instruments were interchanged by the infertility medical assistant including endoscissors, the needle power screwdriver operator, and stapler. I had sat at the console. Next, the transverse mesocolon was reflected into the upper abdomen preparing for the jejunojejunostomy portion of the case. The ligament of Treitz was identified and measured 60 cm antegrade and marked using 3-0 Silk. The jejunum was divided at the 60 cm point using 45-mm white loads above the suture measurement. The biliopancreatic limb was held in place. The Roro limb was measured 100 cm in an antegrade fashion to avoid tension along the proposed gastrojejunal anastomosis. At 100 cm along the anti-mesenteric border of the Roro limb, a jejunojejunostomy was proposed whereby enterotomies were created along the biliopancreatic limb including the Roro limb using a Bovie cautery. A stay suture of 3-0 Slik was placed to align and create the anastomosis. The enterotomies along the anti-mesenteric borders were created followed by unidirectional fire from the patient's right side using 2 - 45 mm white load Smart technology robotic stapler. The jejunojejunostomy was found to be hemostatic. The enterotomy was closed after horizontal mattress stitch of 3-0 silk used to elevate the enterotomy followed by closure with the robotic stapler white load. The jejunal limb was temporarily tacked along the left upper quadrant. Attention was now brought to the creation of the gastrojejunostomy. Along the lesser curvature of the stomach between the second and third veins, dissection was made along the retrogastric space to allow first firing of the robotic staple. Blue loads of 5 - 45 mm staplers were used to divide the stomach to create the gastric pouch. The patient was then prepared for placement of a Orvil. The patient was Mallampati 2. A 25-mm Orvil was selected for placement by the nurse environmental monitoring specialist. The Orvil tubing was placed anterior to the staple line of the gastric pouch and brought out through the left inferior lateral port. I re-scrubbed into the case. The robotic arms were temporarily undocked. The Orvil was then carefully and successfully navigated with the help of the nurse environmental monitoring specialist into the gastric pouch. The sutures were identified and divided. The tubing was from the 25 mm anvil. As the Orvil had been placed, the blind jejunal limb was brought proximally into the upper abdomen. No torsion was found upon the Roro limb. No tension was identified as the limb was brought along the upper abdomen. The blind jejunal limb was previously opened using endo -scissors with cautery. The 25-mm EEA stapler was brought through the left anterior lateral port site from the left side. The EEA stapler was brought through the open jejunal limb and its needle was deployed at the antimesenteric border where the anvil were mated for approximately 1 minute upon firing. The stapler was removed after irrigating the shaft of the instrument with warm normal saline. Donuts were found to be intact and on both sides. The da Kristina Xi robot arms were then re-docked. I sat at the console. The open jejunal limb defect was closed using 45 mm white loads after releasing any tension from the blind jejunal limb. Care was taken to avoid any long blind limb to avoid candycane syndrome. No reinforcement sutures were placed along the gastrojejunal anastomosis. The Ojeda and jejunojejunostomy mesenteric defects were obliterated by her intra- abdominal fat. I then went to the head of the bed to perform the esophagogastrojejunoscopy and a leak test. An Olympus gastroscope was passed along the posterior oropharynx which was unremarkable for any injury to the vocal cords. The scope was passed down to the proximal portion of the pouch, whereby no active bleeding was encountered. Excellent visualization of the gastrojejunostomy anastomosis, including the Roro limb was encountered with endoscopic image obtained. The anastomosis was found to be patent. The gastrointestinal tract was desufflated. No evidence of intraoperative leak was encountered as the gastric pouch and anastomosis were submerged under normal saline solution. The robot was then undocked. I then went back to the bedside of the patient, whereby with coordinated effort of the infertility medical assistant, irrigation was aspirated from the upper abdominal cavity. Tisseel was placed circumferentially over the anastomosis of the gastrojejunostomy. The fascial defect of the EEA stapler was closed using Franklin Davalos and 0 Vicryl. All instruments and pneumoperitoneum were evacuated from the abdominal cavity. The port correlating with the EEA stapler device was cleansed with normal saline solution and hydrogen peroxide. The rest of incisions were reapproximated using 4-0 Monocryl in an interrupted subcuticular fashion. Local anesthetic was infiltrated along the skin for postop analgesia. Liquid glue was applied to the skin. OptiFoam dressing was placed along the EEA stapler site. At the end of the procedure, needle, sponge and instrument count had been verified correct by the surgical lead. She had tolerated the procedure well and was extubated and taken to the postanesthesia unit in stable condition. Intraoperative findings were described to the patient's family who were very pleased with the level of care. Total console time 88 minutes Operative Findings: 1. Biliopancreatic limb 60 cm 2. Bypass performed using 100 cm roro limb secondary to avoid increased tension at 150 cm. 3. Gaspar defect and jejunojejunostomy defect obliterated by moderate intra- abdominal fat. 4. Leak test negative with gastrojejunal anastomosis patent and hemostatic. 5. Robotic staplers total of 5 staplers, blue, used to gastric pouch 6. No reinforcement sutures were placed along the gastrojejunal anastomosis
[2018-04-19] MEDS: HYDROmorphone 1 MG/ML 1 ML SYRINGE IVP ONE ×2 (17:47→18:14)
[2018-04-19] MEDS: HYDROmorphone 1 MG/ML 1 ML SYRINGE IVP PRN ×2 (18:43→21:57)
[2018-04-19] MEDS: 0.9% NACL WITH KCL 20 MEQ/L 1,000 ML IV SCH (18:46)
[2018-04-19] MEDS: HYOSCYAMINE ORAL DROPS 1.875 MG/15 ML BOTTLE PO SCH (19:23)
[2018-04-19] MEDS: SIMETHICONE 40 MG/0.6 ML DROPS 2,000 MG/30 ML BOTTLE PO SCH (19:23)
[2018-04-19] MEDS: ALBUTEROL NEBULIZED 2.5 MG/3 ML INHALATION SCH (20:15)
[2018-04-19] MEDS: AMPICILLIN-SULBACTAM 3 GM in SODIUM CHLORIDE 0.9% 100 ML IVPB SCH (20:42)
[2018-04-19] MEDS: ONDANSETRON 4 MG/2 ML VIAL IVP PRN (21:04)
[2018-04-20] MEDS: AMPICILLIN-SULBACTAM 3 GM in SODIUM CHLORIDE 0.9% 100 ML IVPB SCH (00:58)
[2018-04-20] MEDS: 0.9% NACL WITH KCL 20 MEQ/L 1,000 ML IV SCH ×5 (00:59→20:06)
[2018-04-20] MEDS: SIMETHICONE 40 MG/0.6 ML DROPS 2,000 MG/30 ML BOTTLE PO SCH ×5 (00:59→23:46)
[2018-04-20] MEDS: HYOSCYAMINE ORAL DROPS 1.875 MG/15 ML BOTTLE PO SCH ×5 (00:59→23:45)
[2018-04-20] MEDS: HYDROcodone/APAP 15 ML SOLUTION PO PRN ×3 (01:04→23:45)
[2018-04-20] MEDS: ONDANSETRON 4 MG/2 ML VIAL IVP PRN ×3 (03:43→23:46)
[2018-04-20] MEDS: HYDROmorphone 1 MG/ML 1 ML SYRINGE IVP PRN ×6 (03:44→21:29)
[2018-04-20] MEDS: LACTATED RINGERS 1,000 ML IV SCH (05:23)
[2018-04-20 07:26] LABS: Basophils % (A) 0 %; Eosinophils % (A) 0 %; HCT 33.6 % (34.0-46.0); HGB 11.3 gm/dL (11.4-16.0); Lymphocytes # (A) 1.1 k/uL (1.0-4.8); Lymphocytes % (A) 13 %; MCH 29.6 pg (25.0-35.0); MCHC 33.5 g/dL (31.0-37.0); MCV 88.4 fL (80.0-100.0); Mean Platelet Volume 6.6; Monocytes # (A) 0.5 k/uL (0-1.0); Monocytes % (A) 6 %; Neutrophils # (A) 6.9 k/uL (1.3-7.7); Neutrophils % (A) 81 %; Platelet Count 210 k/uL (150-450); RDW 12.6 % (11.5-15.5); WBC 8.6 k/uL (3.8-10.6)
[2018-04-20 07:36] LABS: Anion Gap 7 mmol/L; Blood Urea Nitrogen 13 mg/dL (7-17); Calcium 8.2 mg/dL (8.4-10.2); Carbon Dioxide 24 mmol/L (22-30); Chloride 107 mmol/L (98-107); Magnesium 1.9 mg/dL (1.6-2.3); Phosphorus 3.1 mg/dL (2.5-4.5); Potassium 4.2 mmol/L (3.5-5.1); Sodium 138 mmol/L (137-145)
[2018-04-20] MEDS: ALBUTEROL NEBULIZED 2.5 MG/3 ML INHALATION SCH ×4 (08:37→20:18)
[2018-04-20] MEDS ORDERED: ENOXAPARIN 30 MG/0.3 ML SYRINGE SQ SCH (09:00)
[2018-04-20] MEDS ORDERED: DEXAMETHASONE SOD PHOSPHATE 10 MG/ML 1 ML VIAL IV STA (09:17)
[2018-04-20] MEDS ORDERED: SUMAtriptan SUCCINATE 6 MG/0.5 ML VIAL SQ STA ×2 (09:18→16:37)
[2018-04-20] MEDS ORDERED: TAMSULOSIN 0.4 MG CAP.ER.24H PO STA ×2 (09:18→09:45)
[2018-04-20] MEDS: PANTOPRAZOLE 40 MG/10 ML VIAL IV SCH (09:45)
[2018-04-20] MEDS ORDERED: SODIUM CHLORIDE 0.9% 2,000 ML IV ONE (10:01)
--- NOTE | 2018-04-20 10:01 | P.PN ---
Subjective Progress Note Date: 04/20/18 HPI: She reports nausea today. She had urinary retention requiring straight cath. She has a scopolamine patch. ABDOMEN: Soft. Dressing clean dry and intact left upper quadrant. Minimal tenderness left upper quadrant. PLAN: 1. Disontinue scopolamine patches for risk for urinary retention. 2. Decadrom for nausea 3. Flomax for urinary retention 4. Imitrex for migraine as excedrin is contraindicated 5. Bolus of fluids, 2-L for dehydration Objective - Vital Signs Vital signs: Vital Signs Temp 98.7 F 04/20/18 07:00 Pulse 92 04/20/18 08:48 Resp 16 04/20/18 07:00 BP 116/71 04/20/18 07:00 Pulse Ox 94 L 04/20/18 07:00 Intake & Output 04/19/18 04/20/18 04/20/18 18:59 06:59 18:59 Intake Total 1100 2225 Output Total 355 1500 Balance 745 725 Weight 101.6 kg Intake: IV 1100 Intake, IV Titration 2225 Amount 0.9% NaCl with KCl 20 Meq 2025 /l 1,000 ml @ 150 mls/hr IV .Q6H40M TERE Rx#: [id number] Ampicillin-Sulbactam 3 gm 200 In Sodium Chloride 0.9% 100 ml @ 100 mls/hr IVPB Q6H TERE Rx#:[id number] Output: Urine 305 1500 Straight 1400 Estimated Blood Loss 50 - Labs CBC & Chem 7: 04/20/18 06:47 04/20/18 06:47 Labs: Abnormal Lab Results - Last 24 Hours (Table) 04/20/18 04/20/18 Range/Units 06:47 06:47 Hgb 11.3 L (11.4-16.0) gm/dL Hct 33.6 L (34.0-46.0) % Creatinine 0.50 L (0.52-1.04) mg/dL Calcium 8.2 L (8.4-10.2) mg/dL
[2018-04-20 15:02] VITALS: BMI 36.1
[2018-04-21 01:00] VITALS: RESP 16
[2018-04-21] MEDS: HYDROmorphone 1 MG/ML 1 ML SYRINGE IVP PRN ×3 (02:34→09:32)
[2018-04-21] MEDS: SIMETHICONE 40 MG/0.6 ML DROPS 2,000 MG/30 ML BOTTLE PO SCH ×2 (05:18→13:24)
[2018-04-21] MEDS: HYOSCYAMINE ORAL DROPS 1.875 MG/15 ML BOTTLE PO SCH ×2 (05:19→13:24)
[2018-04-21] MEDS: 0.9% NACL WITH KCL 20 MEQ/L 1,000 ML IV SCH (05:33)
[2018-04-21] MEDS: LACTATED RINGERS 1,000 ML IV SCH (05:44)
[2018-04-21] MEDS: HYDROcodone/APAP 15 ML SOLUTION PO PRN ×2 (07:27→14:03)
[2018-04-21] MEDS: ONDANSETRON 4 MG/2 ML VIAL IVP PRN (07:27)
[2018-04-21] MEDS ORDERED: BISACODYL 5 MG TABLET.DR PO PRN (08:00)
[2018-04-21] MEDS: ALBUTEROL NEBULIZED 2.5 MG/3 ML INHALATION SCH ×3 (08:06→15:11)
[2018-04-21 08:22] VITALS: BP 132/79; TEMP 98.7
[2018-04-21] MEDS: PANTOPRAZOLE 40 MG/10 ML VIAL IV SCH (09:27)
--- NOTE | 2018-04-21 11:05 | P.PN ---
Subjective Progress Note Date: 04/21/18 48-year-old female seen this morning on rounds. Patient's chief complaint "did not get any sleep in due to noise from roommate. states she's been up ambulating several times in the hallway this morning urinating with no difficulty.. Surgical dressing sites dry abdomen soft surgical tenderness appropriate. Patient states has not had a bowel movement "past 5 days" states belching not passing gas. Patient did have an incident yesterday evening nursing reports patient had coughed up a small amount of blood Lovenox has been held Objective - Vital Signs Vital signs: Vital Signs Temp 98.7 F 04/21/18 07:30 Pulse 68 04/21/18 08:14 Resp 16 04/21/18 07:30 BP 132/79 04/21/18 07:30 Pulse Ox 96 04/21/18 07:30 Intake & Output 04/20/18 04/21/18 04/21/18 18:59 06:59 18:59 Intake Total 1350 Output Total 200 Balance -200 1350 Weight 101.6 kg Intake: Intake, IV Titration 1350 Amount 0.9% NaCl with KCl 20 Meq 1350 /l 1,000 ml @ 100 mls/hr IV .Q10H TERE Rx#: [id number] Output: Urine 200 Other: Voiding Method Toilet # Voids 2 3 1 - Exam Physical exam Pleasant 48-year-old female resting in bed appears in no acute distress Lungs adequate air movement bilaterally on room air sats 95% no shortness of breath Heart S1-S2 audible regular Abdomen surgical dressing site dry obese nontender states his belching no stool tolerating bariatric diet no nausea no vomiting urinating no difficulty Extremities no edema - Labs CBC & Chem 7: 04/20/18 06:47 04/20/18 06:47 Assessment and Plan Assessment: Impression Morbid obesity due to excessive calories BMI 38.6 down to 36.2 Osteoarthritis involving lower back bilateral hips, knees due to morbid obesity Vitamin D deficiency Elevated AST, ALT Hypertension essential Positive family history of morbid obesity Chronic gastritis Metabolic syndrome Hypercholesterolemia Diverticulosis Status post April 20 Robotic assisted da Kristina Xi laparoscopic David-en-Y gastric bypass, for morbid obesity Plan Continue postop bariatric care Pain control Increase activity Anticipate discharge today The above impression and plan of care have been discussed and directed by signing physician. Jessica Darling nurse practitioner acting as scribe for signing physician.
[2018-04-21 15:24] VITALS: PULSE 75
--- NOTE | 2018-04-21 16:08 | P.DS ---
Providers Date of admission: 04/19/18 11:27 Expected date of discharge: 04/21/18 Attending physician: Lidia Fiore Primary care physician: Physician Nonstaff Hospital Course: 48-year-old female presented to undergo an elective Robotic assisted da Kristina Xi laparoscopic David-en-Y gastric bypass for morbid obesity. Patient underwent procedure on April 20. On the day of discharge patient was up ambulatory on the unit tolerating bariatric diet pain medication effective for pain control surgical incision sites dry urinating no difficulty was felt to be hemodynamically stable and appropriate to be discharged Impression Morbid obesity due to excessive calories BMI 38.6 down to 36.2 Osteoarthritis involving lower back bilateral hips, knees due to morbid obesity Vitamin D deficiency Elevated AST, ALT Hypertension essential Positive family history of morbid obesity Chronic gastritis Metabolic syndrome Hypercholesterolemia Diverticulosis Status post April 20 Robotic assisted da Kristina Xi laparoscopic David-en-Y gastric bypass, for morbid obesity The above impression and plan of care have been discussed and directed by signing physician. Jessica Darling nurse practitioner acting as scribe for signing physician. Plan - Discharge Summary Discharge Rx Participant: Yes New Discharge Prescriptions: New Bisacodyl [Dulcolax] 5 mg PO DAILY PRN #10 tablet. PRN Reason: Constipation Ondansetron Odt [Zofran Odt] 4 mg PO Q8HR PRN #9 tab PRN Reason: Nausea Simethicone 40 mg/0.6 ml Drops [Mylicon Drops] 40 mg PO PCHS PRN #30 ml PRN Reason: Gas Omeprazole 40 mg PO DAILY #30 capsule. Continue HYDROcodone/APAP 10-325MG [[place] 10-325] 1 tab PO TID PRN PRN Reason: Pain Thyroid,Pork [[place] Thyroid] 180 mg PO DAILY Discontinued Multivitamins, Thera [Multivitamin (formulary)] 1 tab PO DAILY Ergocalciferol [Vitamin D2 (DRISDOL)] 50,000 unit PO MO Discharge Medication List HYDROcodone/APAP 10-325MG [[place] 10-325] 1 tab PO TID PRN 09/24/16 [History] Thyroid,Pork [[place] Thyroid] 180 mg PO DAILY 04/08/18 [History] Bisacodyl [Dulcolax] 5 mg PO DAILY PRN #10 tablet. 04/21/18 [Rx] Omeprazole 40 mg PO DAILY #30 capsule. 04/21/18 [Rx] Ondansetron Odt [Zofran Odt] 4 mg PO Q8HR PRN #9 tab 04/21/18 [Rx] Simethicone 40 mg/0.6 ml Drops [Mylicon Drops] 40 mg PO PCHS PRN #30 ml [Rx] Follow up Appointment(s)/Referral(s): [facility]ric Center,. [NON-STAFF] - 04/23/18 10:00 am Patient Instructions/Handouts: Nutrition after Bariatric Surgery (GEN), David- en-Y Gastric Bypass (GEN) Activity/Diet/Wound Care/Special Instructions: No lifting over 4 pounds in 4 weeks. May shower. No bathtub soaks. Please crush or open your current pain medications for relief. Discharge Disposition: HOME SELF-CARE
== END 2018-04-21 17:19 | disposition home or self-care (01) | DRG 621 ==
LOC: 2ORMAIN 11:27 → 3SUR 16:58
PROVIDERS: ADMIT Surgery Plastic and Reconstructive Surgery; ATTEND Surgery Plastic and Reconstructive Surgery
PROC: 8E0W4CZ Robotic Assisted Procedure of Trunk Region, Percutaneous Endoscopic Approach (ICD-10-PCS; 2018-04-19)
PROC: 0D164ZA Bypass Stomach to Jejunum, Percutaneous Endoscopic Approach (ICD-10-PCS; principal; 2018-04-19 13:50)
DX: E66.01 Morbid (severe) obesity due to excess calories (principal); Z68.36 Body mass index [BMI] 36.0-36.9, adult; M16.0 Bilateral primary osteoarthritis of hip; E55.9 Vitamin D deficiency, unspecified; K57.90 Diverticulosis of intestine, part unspecified, without perforation or abscess without bleeding; E78.00 Pure hypercholesterolemia, unspecified; E88.81 Metabolic syndrome and other insulin resistance; M47.9 Spondylosis, unspecified; K29.50 Unspecified chronic gastritis without bleeding; E03.9 Hypothyroidism, unspecified; E78.5 Hyperlipidemia, unspecified; I10 Essential (primary) hypertension; M17.0 Bilateral primary osteoarthritis of knee; R33.9 Retention of urine, unspecified; E86.0 Dehydration; G43.909 Migraine, unspecified, not intractable, without status migrainosus; R94.5 Abnormal results of liver function studies; E78.1 Pure hyperglyceridemia; M79.7 Fibromyalgia; Z82.49 Family history of ischemic heart disease and other diseases of the circulatory system; Z85.41 Personal history of malignant neoplasm of cervix uteri; Z90.710 Acquired absence of both cervix and uterus
CPT/HCPCS: 80051; 82310; 82565; 83735; 84100; 84520; 85025; 86850; 86900; 86901; 94640; 94760

== ENCOUNTER → 2018-04-23 | Outpatient (CLI) | payer BC, MEDICARE ==
[2018-04-23 10:05] LABS: Glucose,Whole Blood 72 mg/dL (75-99)
[2018-04-23] MEDS: SODIUM CHLORIDE 0.9% 1,000 ML IV SCH ×2 (10:30→11:35)
[2018-04-23 11:11] VITALS: BP 105/38; PULSE 82; RESP 18; TEMP 97.5
[2018-04-23 11:30] LABS: Basophils % (A) 0 %; Eosinophils # (A) 0.2 k/uL (0-0.7); Eosinophils % (A) 2 %; HGB 13.1 gm/dL (11.4-16.0); Lymphocytes % (A) 23 %; MCH 29.7 pg (25.0-35.0); MCHC 33.6 g/dL (31.0-37.0); MCV 88.4 fL (80.0-100.0); Mean Platelet Volume 6.7; Monocytes # (A) 0.5 k/uL (0-1.0); Monocytes % (A) 6 %; Neutrophils # (A) 5.8 k/uL (1.3-7.7); Neutrophils % (A) 67 %; Platelet Count 271 k/uL (150-450); RBC 4.41 m/uL (3.80-5.40); RDW 12.7 % (11.5-15.5); WBC 8.6 k/uL (3.8-10.6)
[2018-04-23 11:40] LABS: ALT 77 U/L (9-52); AST 25 U/L (14-36); Albumin 4.2 g/dL (3.5-5.0); Alkaline Phosphatase 80 U/L (38-126); Anion Gap 16 mmol/L; Blood Urea Nitrogen 13 mg/dL (7-17); Calcium 9.5 mg/dL (8.4-10.2); Carbon Dioxide 20 mmol/L (22-30); Chloride 103 mmol/L (98-107); Glucose 65 mg/dL (74-99); Potassium 3.6 mmol/L (3.5-5.1); Sodium 139 mmol/L (137-145)
[2018-04-23 12:02] VITALS: BMI 35.3
--- NOTE | 2018-04-23 12:53 | P.PN ---
Subjective Progress Note Date: 04/23/18 HPI: No reports of fevers or chills. Patient has low oral intake. She reports difficulty with sleep. She has history of chronic pain.She is passing flatus. ABDOMEN: Soft, nondistended. Dressing discontinued. No signs of infection. PLAN: 1. IV fluid hydration for poor oral intake 2. Repeat labs. 3. Follow-up in bariatric center in 3 days for additional hydration 4. Pain medications per her primary care provider Objective - Vital Signs Vital signs: Vital Signs Temp 97.5 F L 04/23/18 11:57 Pulse 82 04/23/18 11:57 Resp 18 04/23/18 11:09 BP 105/38 04/23/18 11:09 Pulse Ox 100 04/23/18 11:09 Intake & Output 04/22/18 04/23/18 04/23/18 18:59 06:59 18:59 Weight 99.337 kg - Labs CBC & Chem 7: 04/23/18 10:00 04/23/18 10:00 Labs: Abnormal Lab Results - Last 24 Hours (Table) 04/23/18 04/23/18 Range/Units 10:00 10:04 Carbon Dioxide 20 L (22-30) mmol/L Glucose 65 L (74-99) mg/dL POC Glucose (mg/dL) 72 L (75-99) mg/dL ALT 77 H (9-52) U/L
== END | disposition home or self-care (01) ==
LOC: BARWHC3 09:49
PROVIDERS: ATTEND Surgery Plastic and Reconstructive Surgery
DX: E86.0 Dehydration (principal); G47.9 Sleep disorder, unspecified; G89.29 Other chronic pain
CPT/HCPCS: 36415; 80053; 85025; 96360; 96361; 99211

== ENCOUNTER → 2018-04-28 | Outpatient (CLI) | payer BC, MEDICARE ==
[2018-04-28 14:21] VITALS: BMI 34.7
--- NOTE | 2018-04-28 14:51 | P.PN ---
Subjective Progress Note Date: 04/28/18 DATE: 04/28/2018 CHIEF COMPLAINT: Status post gastric bypass HISTORY OF PRESENT ILLNESS: Kayy Dean is a 48-year-old female who is status post gastric bypass 04/19/2018. She is 1 week out. Her pain is better. She is drinking over 48 oz daily. She had her first nausea last night. No reports of gastroesophageal reflux disease. At her height of 5 foot 6 inches, her ideal body weight is 154 pounds. Her highest weight was 238 pounds. Today she is 215 pounds from 219 pounds, 1 week ago. She has lost 23 pounds lifetime. Her body mass index is reduced from 38.5 to 34.7. She has lost 4 pounds in 1 week. She has 28% excess weight loss. PHYSICAL EXAM: VITAL SIGNS: 5 feet 6 inches, 215 pounds. Body mass is 34.7 Vital Signs Temp 98.1 F 04/28/18 14:53 Pulse 94 04/28/18 14:53 Resp 16 04/28/18 14:53 BP 115/67 04/28/18 14:53 Pulse Ox GENERAL: Well-developed female in no acute distress. HEENT: No scleral icterus. Extraocular movements grossly intact. Moist buccal mucosa. NECK: Supple without lymphadenopathy. CHEST: Nonlabored respirations. Equal bilateral excursions. CARDIOVASCULAR: Regular rate and rhythm. ABDOMEN: Soft, nondistended. Incisions approximated. No signs of infection MUSCULOSKELETAL: Pinpoint tenderness along the lower back. NEURO: No focal or lateralizing signs. Cranial nerves II through XII grossly within normal limits. PSYCH: Alert and oriented to person, place, and time. SKIN: Well perfused. Good skin turgor. ASSESSMENT: 1. Morbid obesity due to excess calories. 2. Body mass index of 37.1 to 34.7 3. Chronic pain syndrome 4. Status post gastric bypass PLAN: 1. She is doing well. 2. Follow-up 1 month. Objective - Vital Signs Vital signs: Intake & Output 04/27/18 04/28/18 04/28/18 18:59 06:59 18:59 Weight 97.522 kg
[2018-04-28 14:55] VITALS: BP 115/67; PULSE 94; RESP 16; TEMP 98.1
== END | disposition home or self-care (01) ==
LOC: BARWHC3 13:07
PROVIDERS: ATTEND Surgery Plastic and Reconstructive Surgery
DX: Z09 Encounter for follow-up examination after completed treatment for conditions other than malignant neoplasm (principal); E66.01 Morbid (severe) obesity due to excess calories; G89.4 Chronic pain syndrome; Z98.84 Bariatric surgery status; Z68.34 Body mass index [BMI] 34.0-34.9, adult
CPT/HCPCS: 97803; 99211

== ENCOUNTER → 2018-05-19 | Outpatient (CLI) | payer BC ==
[2018-05-19 13:21] VITALS: BP 135/63; PULSE 62; TEMP 98.2; BMI 33.0
--- NOTE | 2018-05-19 13:36 | P.PN ---
Subjective Progress Note Date: 05/19/18 DATE: 05/19/2018 CHIEF COMPLAINT: Status post gastric bypass HISTORY OF PRESENT ILLNESS: Kayy Dean is a 48-year-old female who is status post gastric bypass 04/19/2018. She is 1 month out. She reports occasional dysphagia. She is feeling much better. At her height of 5 foot 6 inches, her ideal body weight is 154 pounds. Her highest weight was 238 pounds. Today she is 205 pounds from 215 pounds, 2 weeks ago. She has lost 33 pounds lifetime. Her body mass index is reduced from 38.5 to 33.1. She has lost 10 pounds in 2 weeks. She has 40% excess weight loss. PHYSICAL EXAM: VITAL SIGNS: 5 feet 6 inches, 205 pounds. Body mass is 33.1 Vital Signs Temp 98.2 F 05/19/18 13:15 Pulse 62 05/19/18 13:15 Resp BP 135/63 05/19/18 13:15 Pulse Ox GENERAL: Well-developed female in no acute distress. HEENT: No scleral icterus. Extraocular movements grossly intact. Moist buccal mucosa. NECK: Supple without lymphadenopathy. CHEST: Nonlabored respirations. Equal bilateral excursions. CARDIOVASCULAR: Regular rate and rhythm. ABDOMEN: Minimal tenderness at epigastrium. No incisional hernia. Soft, nondistended. MUSCULOSKELETAL: No cludding, cyanosis or edema. NEURO: No focal or lateralizing signs. Cranial nerves II through XII grossly within normal limits. PSYCH: Alert and oriented to person, place, and time. SKIN: Well perfused. Good skin turgor. ASSESSMENT: 1. Morbid obesity due to excess calories. 2. Body mass index of 37.1 to 33.1 3. Chronic pain syndrome 4. Status post gastric bypass 5. Dysphagia PLAN: 1. Recommend proceed with EGD 2. Recommend delay for soft diet at least 1 week. Objective - Vital Signs Vital signs: Vital Signs Temp 98.2 F 05/19/18 13:15 Pulse 62 05/19/18 13:15 Resp BP 135/63 05/19/18 13:15 Pulse Ox Intake & Output 05/18/18 05/19/18 05/19/18 18:59 06:59 18:59 Weight 92.986 kg
== END | disposition home or self-care (01) ==
LOC: BARWHC3 12:46
PROVIDERS: ATTEND Surgery Plastic and Reconstructive Surgery
DX: Z48.815 Encounter for surgical aftercare following surgery on the digestive system (principal); R13.10 Dysphagia, unspecified; R63.4 Abnormal weight loss; E66.01 Morbid (severe) obesity due to excess calories; G89.4 Chronic pain syndrome; Z68.33 Body mass index [BMI] 33.0-33.9, adult; Z98.84 Bariatric surgery status
CPT/HCPCS: 97803; 99211

== ENCOUNTER 2018-05-21 06:50 | Day surgery (SDC) | payer BC ==
[2018-05-19 11:14] VITALS: BMI 33.7
--- NOTE | 2018-05-20 17:50 | P.GSHP ---
History of Present Illness H&P Date: 05/21/18 CHIEF COMPLAINT: GERD HISTORY OF PRESENT ILLNESS: The patient is a 48-year-old female who presents reports gastroesophageal reflux disease. Upper endoscopy was offered for further evaluation and management. PAST MEDICAL HISTORY: Please see list. PAST SURGICAL HISTORY: Please see list. MEDICATIONS: Please see list. ALLERGIES: Please see list. SOCIAL HISTORY: No illicit drug use FAMILY HISTORY: No reports of Crohn disease or ulcerative colitis. REVIEW OF ORGAN SYSTEMS: CONSTITUTIONAL: No reports of fevers or chills. GI: Denies any blood in stools or constipation. PHYSICAL EXAM: VITAL SIGNS: Stable GENERAL: Well-developed and pleasant in no acute distress. HEENT: No scleral icterus. Extraocular movements grossly intact. Moist buccal mucosa. NECK: Supple without lymphadenopathy. CHEST: Unlabored respirations. Equal bilateral excursions. CARDIOVASCULAR: Regular rate and rhythm. Distal 2+ pulses. ABDOMEN: Soft, nondistended. MUSCULOSKELETAL: No clubbing, cyanosis, or edema. ASSESSMENT: 1. Gastroesophageal reflux disease PLAN: 1. Recommend proceeding with an upper endoscopy Past Medical History Past Medical History: Cancer, Fibromyalgia, Skin Disorder, Thyroid Disorder Additional Past Medical History / Comment(s): psoriasis, hx migraines, diverticulitis, hx cervical cancer. CHRONIC BACK PAIN. History of Any Multi-Drug Resistant Organisms: MRSA Date of last positivie culture/infection: 2010 MDRO Source:: rt axilla Past Surgical History: Appendectomy, Back Surgery, Bariatric Surgery, Cholecystectomy, Hysterectomy Additional Past Surgical History / Comment(s): laminectomy GASTRIC BYPASS Past Anesthesia/Blood Transfusion Reactions: Motion Sickness Smoking Status: Never smoker - Past Family History Mother Family Medical History: Cancer Medications and Allergies Home Medications Medication Instructions Recorded Confirmed Type HYDROcodone/APAP 10-325MG [[place] 1 tab PO TID PRN 09/24/16 05/20/18 History 10-325] Thyroid,Pork [[place] Thyroid] 180 mg PO DAILY 04/08/18 05/20/18 History Bisacodyl [Dulcolax] 5 mg PO DAILY PRN #10 tablet. 04/21/18 05/20/18 Rx Omeprazole 40 mg PO DAILY #30 capsule. 04/21/18 05/20/18 Rx ALPRAZolam [Xanax] 0.5 mg PO Q8HR PRN #20 tab 05/13/18 05/20/18 Rx Ondansetron Odt [Zofran Odt] 4 mg PO Q8HR PRN #9 tab 05/13/18 05/20/18 Rx Simethicone 40 mg/0.6 ml Drops 40 mg PO PCHS PRN #30 ml 05/13/18 05/20/18 Rx [Mylicon Drops] Allergies Allergy/AdvReac Type Severity Reaction Status Date / Time adhesive Allergy Rash/Hives Verified 05/19/18 11:08 Latex, Natural Rubber Allergy Rash/Hives Verified 05/19/18 11:08
[~2018-05-21 06:50] MED LIST changes: -CHLORHEXIDINE GLUCONATE 15 ML CUP MUCOUS MEM ONE; -DEXAMETHASONE SOD PHOSPHATE 10 MG/ML 1 ML VIAL IV ONE; -ENOXAPARIN 40 MG/0.4 ML SYRINGE SQ STA; +HYDROmorphone 0.5 MG/0.5 ML SYRINGE IVP PRN; +LACTATED RINGERS 1,000 ML IV SCH; -PANTOPRAZOLE 40 MG/10 ML VIAL IV STA; -SCOPOLAMINE 1.5MG/72HR PATCH TRANSDERM ONE; -SCOPOLAMINE 1.5MG/72HR PATCH TRANSDERM STA; -ceFAZolin IN SWFI 2 GM/20 ML SYRINGE IVP ONE
[2018-05-21 07:18] VITALS: RESP 16; TEMP 97.2
[2018-05-21] MEDS ORDERED: ONDANSETRON 4 MG/2 ML VIAL ONE (08:55)
[2018-05-21] MEDS ORDERED: PROPOFOL 10 MG/ML 20 ML VIAL IV ONE (08:55)
[2018-05-21] MEDS ORDERED: DEXAMETHASONE SOD PHOSPHATE 10 MG/ML 1 ML VIAL IV STA (09:11)
[2018-05-21] MEDS ORDERED: LACTATED RINGERS 1,000 ML IV ONE (09:13)
--- NOTE | 2018-05-21 09:15 | P.PCN ---
Date of Procedure: 05/21/18 Description of Procedure: PREOPERATIVE DIAGNOSIS: Dysphagia. Nausea with vomiting. Morbid obesity. POSTOPERATIVE DIAGNOSIS: Dysphagia. Nausea with vomiting. Morbid obesity. Gastrojejunal strictur OPERATION: Esophagogastrojejunoscopy with balloon dilatation from 8 to 12 mm. SURGEON: Lidia Fiore MD ANESTHESIA: MAC. INDICATIONS: The patient is a 48-year-old female who presents with a history of dysphagia, gastric bypass including new-onset nausea and vomiting. Benefits and risks of the procedure were described. Informed consent was obtained. DESCRIPTION: The patient was brought into the endoscopy suite and laid in the left lateral decubitus position. After a timeout was confirmed, the procedure was initiated. An Olympus gastroscope was passed along the posterior oropharynx down to the distal esophagus where the squamocolumnar junction was unremarkable. The gastric pouch was entered. A gastrojejunal stricture of 8 mm was found as the adult gastroscope was 9.5 mm in size. A [employer] balloon dilator was placed through the scope. Final insufflation up to 12 mm was performed with a total of 2 minutes. The scope was advanced up to 50 cm from the incisors into the David limb. The mucosa of the gastrojejunal anastomosis was intact. No chronic gastrojejunal marginal ulcer was encountered. No full-thickness injury was encountered. The GI tract was desufflated. The patient tolerated the procedure well. FINDINGS: Squamocolumnar junction unremarkable at 37 cm. Stricture of approximately 8 mm encountered. No chronic gastrojejunal ulceration encountered. Successful balloon dilatation to 12 mm. Gastric pouch 8 cm, anastomosis at 45 cm from incisors RECOMMENDATIONS: Omeprazole of at least 4 weeks. Repeat upper endoscopy 3-4 weeks Plan - Discharge Summary New Discharge Prescriptions: No Action HYDROcodone/APAP 10-325MG [[place] 10-325] 1 tab PO TID PRN PRN Reason: Pain Thyroid,Pork [[place] Thyroid] 180 mg PO DAILY Bisacodyl [Dulcolax] 5 mg PO DAILY PRN #10 tablet.dr [place] Reason: Constipation Omeprazole 40 mg PO DAILY #30 capsule. Ondansetron Odt [Zofran Odt] 4 mg PO Q8HR PRN #9 tab PRN Reason: Nausea Simethicone 40 mg/0.6 ml Drops [Mylicon Drops] 40 mg PO PCHS PRN #30 ml PRN Reason: Gas ALPRAZolam [Xanax] 0.5 mg PO Q8HR PRN #20 tab PRN Reason: Anxiety Discharge Medication List HYDROcodone/APAP 10-325MG [[place] 10-325] 1 tab PO TID PRN 09/24/16 [History] Thyroid,Pork [[place] Thyroid] 180 mg PO DAILY 04/08/18 [History] Bisacodyl [Dulcolax] 5 mg PO DAILY PRN #10 tablet. 04/21/18 [Rx] Omeprazole 40 mg PO DAILY #30 capsule. 04/21/18 [Rx] ALPRAZolam [Xanax] 0.5 mg PO Q8HR PRN #20 tab 05/13/18 [Rx] Ondansetron Odt [Zofran Odt] 4 mg PO Q8HR PRN #9 tab 05/13/18 [Rx] Simethicone 40 mg/0.6 ml Drops [Mylicon Drops] 40 mg PO PCHS PRN #30 ml [Rx] Follow up Appointment(s)/Referral(s): [facility] [[facility]-STAFF] - 05/26/18 Patient Instructions/Handouts: Esophageal Dilation (DC) Activity/Diet/Wound Care/Special Instructions: Liquid diet today. Pureed Diet tomorrow. Discharge Disposition: HOME SELF-CARE
[2018-05-21 09:49] VITALS: BP 109/75; PULSE 55
--- NOTE | 2018-05-22 12:49 | P.PN ---
Progress Note - Text Progress Note Date: 05/22/18 Patient contacted via phone. She reports doing well from her dilation. She is able to tolerate more foods. She will follow-up in the office.
== END 2018-05-21 09:58 | disposition home or self-care (01) ==
LOC: ORWHC2ENDO 06:50
PROVIDERS: ATTEND Surgery Plastic and Reconstructive Surgery
DX: K31.89 Other diseases of stomach and duodenum (principal); E66.01 Morbid (severe) obesity due to excess calories; Z68.33 Body mass index [BMI] 33.0-33.9, adult; Z98.84 Bariatric surgery status; M79.7 Fibromyalgia; E07.9 Disorder of thyroid, unspecified; L40.9 Psoriasis, unspecified; G89.29 Other chronic pain; M54.9 Dorsalgia, unspecified; Z86.14 Personal history of Methicillin resistant Staphylococcus aureus infection; F39 Unspecified mood [affective] disorder; K21.9 Gastro-esophageal reflux disease without esophagitis; Z79.890 Hormone replacement therapy; Z79.899 Other long term (current) drug therapy
CPT/HCPCS: 43245; J1100; J2405; J2704; C1726; 43244

== ENCOUNTER → 2018-06-16 | Outpatient (CLI) | payer BC ==
--- NOTE | 2018-06-16 15:25 | P.PN ---
Subjective Progress Note Date: 06/16/18 HPI: She has nausea. She reports persistent dysphagia. She has history of gastric stricture. ABDOMEN: unremarkable. PLAN: 1. EGD emergent for dysphagia.
[2018-06-16 16:46] VITALS: BP 109/76; PULSE 60; TEMP 97.9; BMI 32.3
== END | disposition home or self-care (01) ==
LOC: BARWHC3 14:08
PROVIDERS: ATTEND Surgery Plastic and Reconstructive Surgery
DX: R13.10 Dysphagia, unspecified (principal); R11.0 Nausea; Z87.19 Personal history of other diseases of the digestive system
CPT/HCPCS: 97803; 99211

== ENCOUNTER 2018-06-17 12:19 | Day surgery (SDC) | payer BC ==
[2018-06-17] MEDS: LACTATED RINGERS 1,000 ML IV SCH ×2 (13:05→13:13)
[2018-06-17] MEDS ORDERED: LIDOCAINE 1% 20 ML VIAL (10MG/ML) FOR IV START INTRADERMA ONE (13:05)
--- NOTE | 2018-06-17 13:07 | P.GSHP ---
History of Present Illness H&P Date: 06/17/18 CHIEF COMPLAINT: GERD HISTORY OF PRESENT ILLNESS: The patient is a 48-year-old female who presents reports gastroesophageal reflux disease. Upper endoscopy was offered for further evaluation and management. PAST MEDICAL HISTORY: Please see list. PAST SURGICAL HISTORY: Please see list. MEDICATIONS: Please see list. ALLERGIES: Please see list. SOCIAL HISTORY: No illicit drug use FAMILY HISTORY: No reports of Crohn disease or ulcerative colitis. REVIEW OF ORGAN SYSTEMS: CONSTITUTIONAL: No reports of fevers or chills. GI: Denies any blood in stools or constipation. PHYSICAL EXAM: VITAL SIGNS: Stable GENERAL: Well-developed and pleasant in no acute distress. HEENT: No scleral icterus. Extraocular movements grossly intact. Moist buccal mucosa. NECK: Supple without lymphadenopathy. CHEST: Unlabored respirations. Equal bilateral excursions. CARDIOVASCULAR: Regular rate and rhythm. Distal 2+ pulses. ABDOMEN: Soft, nondistended. MUSCULOSKELETAL: No clubbing, cyanosis, or edema. ASSESSMENT: 1. Gastroesophageal reflux disease PLAN: 1. Recommend proceeding with an upper endoscopy Past Medical History Past Medical History: Cancer, Fibromyalgia, Skin Disorder, Thyroid Disorder Additional Past Medical History / Comment(s): psoriasis, hx migraines, diverticulitis, hx cervical cancer. CHRONIC BACK PAIN. History of Any Multi-Drug Resistant Organisms: MRSA Date of last positivie culture/infection: 2010 MDRO Source:: rt axilla Past Surgical History: Appendectomy, Back Surgery, Bariatric Surgery, Cholecystectomy, Hysterectomy Additional Past Surgical History / Comment(s): laminectomy GASTRIC BYPASS Past Anesthesia/Blood Transfusion Reactions: Motion Sickness Smoking Status: Never smoker - Past Family History Mother Family Medical History: Cancer Medications and Allergies Home Medications Medication Instructions Recorded Confirmed Type HYDROcodone/APAP 10-325MG [[place] 1 tab PO TID PRN 09/24/16 06/17/18 History 10-325] Thyroid,Pork [[place] Thyroid] 180 mg PO DAILY 04/08/18 06/17/18 History Bisacodyl [Dulcolax] 5 mg PO DAILY PRN #10 tablet. 04/21/18 06/17/18 Rx Omeprazole 40 mg PO DAILY #30 capsule. 04/21/18 06/17/18 Rx ALPRAZolam [Xanax] 0.5 mg PO Q8HR PRN #20 tab 05/13/18 06/17/18 Rx Ondansetron Odt [Zofran Odt] 4 mg PO Q8HR PRN #9 tab 05/13/18 06/17/18 Rx Simethicone 40 mg/0.6 ml Drops 40 mg PO PCHS PRN #30 ml 05/13/18 06/17/18 Rx [Mylicon Drops] busPIRone HCL [Buspar] 7.5 mg PO HS 06/17/18 06/17/18 History Allergies Allergy/AdvReac Type Severity Reaction Status Date / Time adhesive Allergy Rash/Hives Verified 06/17/18 12:45 Latex, Natural Rubber Allergy Rash/Hives Verified 06/17/18 12:45 Surgical - Exam Vital Signs Temp Pulse Resp BP Pulse Ox 98.0 F 54 L 18 105/56 95 06/17/18 13:00 06/17/18 13:00 06/17/18 13:00 06/17/18 13:00 06/17/18 13:00
[2018-06-17] MEDS ORDERED: PROPOFOL 10 MG/ML 20 ML VIAL IV ONE (13:15)
[2018-06-17] MEDS ORDERED: fentaNYL (PF) 50 MCG/ML 2 ML AMP ONE (13:15)
[2018-06-17] MEDS ORDERED: MIDAZOLAM 2 MG/2 ML VIAL ONE (13:15)
[2018-06-17] MEDS ORDERED: LIDOCAINE 1% INJ 10MG/ML (20 ML MDV) ONE (13:15)
--- NOTE | 2018-06-17 13:29 | P.PCN ---
Date of Procedure: 06/17/18 Description of Procedure: PREOPERATIVE DIAGNOSIS: Dysphagia. Nausea with vomiting Gastrojejunal stricture POSTOPERATIVE DIAGNOSIS: Dysphagia. Nausea with vomiting Gastrojejunal stricture OPERATION: Esophagogastrojejunoscopy with balloon dilatation from 10 to 18 mm. SURGEON: Lidia Fiore MD ANESTHESIA: MAC. INDICATIONS: The patient is a 48-year-old female who presents with a history of dysphagia, gastrojejunal stricture including nausea and vomiting. Benefits and risks of the procedure were described. Informed consent was obtained. DESCRIPTION: The patient was brought into the endoscopy suite and laid in the left lateral decubitus position. After a timeout was confirmed, the procedure was initiated. An Olympus gastroscope was passed along the posterior oropharynx down to the distal esophagus where the squamocolumnar junction was unremarkable. The gastric pouch was entered. A gastrojejunal stricture of 10 mm was found as the adult gastroscope was 9.5 mm in size. A [employer] balloon dilator was placed through the scope. Final insufflation up to 18 mm was performed with a total of 2 minutes. The scope was advanced up to 60 cm from the incisors into the David limb. No chronic gastrojejunal marginal ulcer was encountered. Bleeding was found along the anastomosis. The GI tract was desufflated. The patient tolerated the procedure well. FINDINGS: Stricture of approximately 10 mm encountered. No chronic gastrojejunal ulceration encountered. Balloon dilatation to 18 mm. RECOMMENDATIONS: Continue omeprazole daily Plan - Discharge Summary New Discharge Prescriptions: No Action HYDROcodone/APAP 10-325MG [[place] 10-325] 1 tab PO TID PRN PRN Reason: Pain Thyroid,Pork [[place] Thyroid] 180 mg PO DAILY Bisacodyl [Dulcolax] 5 mg PO DAILY PRN #10 tablet.dr PRN Reason: Constipation Omeprazole 40 mg PO DAILY #30 capsule. Ondansetron Odt [Zofran Odt] 4 mg PO Q8HR PRN #9 tab PRN Reason: Nausea Simethicone 40 mg/0.6 ml Drops [Mylicon Drops] 40 mg PO PCHS PRN #30 ml PRN Reason: Gas ALPRAZolam [Xanax] 0.5 mg PO Q8HR PRN #20 tab PRN Reason: Anxiety busPIRone HCL [Buspar] 7.5 mg PO HS Multivitamin [Men's Multi-Vitamin] 1 each PO DAILY B12/Levomefolate Calcium/B-6 [Foltx Tablet] 1 tab PO DAILY Discharge Medication List HYDROcodone/APAP 10-325MG [[place] 10-325] 1 tab PO TID PRN 09/24/16 [History] Thyroid,Pork [[place] Thyroid] 180 mg PO DAILY 04/08/18 [History] Bisacodyl [Dulcolax] 5 mg PO DAILY PRN #10 tablet. 04/21/18 [Rx] Omeprazole 40 mg PO DAILY #30 capsule. 04/21/18 [Rx] ALPRAZolam [Xanax] 0.5 mg PO Q8HR PRN #20 tab 05/13/18 [Rx] Ondansetron Odt [Zofran Odt] 4 mg PO Q8HR PRN #9 tab 05/13/18 [Rx] Simethicone 40 mg/0.6 ml Drops [Mylicon Drops] 40 mg PO PCHS PRN #30 ml [Rx] B12/Levomefolate Calcium/B-6 [Foltx Tablet] 1 tab PO DAILY 06/17/18 [History] Multivitamin [Men's Multi-Vitamin] 1 each PO DAILY 06/17/18 [History] busPIRone HCL [Buspar] 7.5 mg PO HS 06/17/18 [History]
[2018-06-17 13:41] VITALS: TEMP 97.5
--- NOTE | 2018-06-17 14:01 | XR ---
EXAMINATION TYPE: XR chest 1V portable DATE OF EXAM: 06/17/2018 COMPARISON: 08/24/2015 HISTORY: Status post balloon dilatation of the stomach. Chest pain. TECHNIQUE: Single frontal view of the chest is obtained. FINDINGS: Copious soft tissues partially obscure the lower lungs. There is no focal air space opacit y, pleural effusion, or pneumothorax seen. The cardiac silhouette size is upper limits of normal. The osseous structures are intact. Partial visualization of lumbar surgical fusion is seen at the mos t inferior aspect of the [id number]. IMPRESSION: No acute cardiopulmonary process.
[2018-06-17 14:03] VITALS: RESP 16
[2018-06-17 14:22] VITALS: BP 112/63; PULSE 55
== END 2018-06-17 14:31 | disposition home or self-care (01) ==
LOC: ORWHC2ENDO 12:19
PROVIDERS: ATTEND Surgery Plastic and Reconstructive Surgery
DX: K31.89 Other diseases of stomach and duodenum (principal); Z98.0 Intestinal bypass and anastomosis status; Z98.84 Bariatric surgery status; M79.7 Fibromyalgia; E07.9 Disorder of thyroid, unspecified; L40.9 Psoriasis, unspecified; M54.9 Dorsalgia, unspecified; G89.29 Other chronic pain; G43.909 Migraine, unspecified, not intractable, without status migrainosus; Z90.49 Acquired absence of other specified parts of digestive tract; Z90.710 Acquired absence of both cervix and uterus; Z87.19 Personal history of other diseases of the digestive system; Z85.41 Personal history of malignant neoplasm of cervix uteri; Z86.14 Personal history of Methicillin resistant Staphylococcus aureus infection; Z79.890 Hormone replacement therapy; Z79.899 Other long term (current) drug therapy; Z91.040 Latex allergy status; Z91.048 Other nonmedicinal substance allergy status
CPT/HCPCS: 71045; 43245; J2250; J2001; J3010; J2704; C1726

== ENCOUNTER → 2018-11-17 | Outpatient (CLI) | payer BC ==
[2018-11-17 12:30] LABS: INR 0.9 (<1.2); Partial Thromboplastin Time 23.6 sec (22.0-30.0)
[2018-11-17 12:47] LABS: HCT 42.6 % (34.0-46.0); HGB 13.3 gm/dL (11.4-16.0); MCH 29.4 pg (25.0-35.0); MCHC 31.3 g/dL (31.0-37.0); MCV 94.1 fL (80.0-100.0); Mean Platelet Volume 6.9; Platelet Count 220 k/uL (150-450); RBC 4.53 m/uL (3.80-5.40); RDW 12.9 % (11.5-15.5); WBC 4.4 k/uL (3.8-10.6)
[2018-11-17 18:07] LABS: Parathyroid Hormone Intact 33.5 pg/mL (14.0-72.0)
[2018-11-17 18:35] LABS: Iron Saturation 24.56 (12.00-45.00)
[2018-11-17 18:37] LABS: Albumin 4.6 g/dL (3.80-4.90); Albumin/Globulin Ratio 2.09 (1.60-3.17); Calcium 9.5 mg/dL (8.7-10.3); Globulin 2.2 g/dL (1.6-3.3); LDL Cholesterol,Calculated 69.6 mg/dL (0.0-131.0); Magnesium 2.1 mg/dL (1.5-2.4); Phosphorus 3.7 mg/dL (2.4-5.1); Potassium 4.2 mmol/L (3.5-5.5); Total Bilirubin 0.5 mg/dL (0.3-1.2); Total Protein 6.8 g/dL (6.2-8.2); VLDL Calculation 26.4 mg/dL (5.00-40.00)
[2018-11-17 18:43] LABS: Vitamin D 25 Hydroxy 38.5 ng/mL (30.0-100.0)
[2018-11-17 19:10] LABS: Folate, Serum >24.0 ng/mL; Vitamin B12 >4000.0 pg/mL (211-911)
[2018-11-17 22:36] LABS: Hemoglobin A1C 4.8 % (4.0-6.0)
[2018-11-18 12:58] LABS: Zinc, Serum 107 ug/dL (60-130)
[2018-11-19 07:42] LABS: Vitamin A 44 ug/dL (38-106)
== END | disposition home or self-care (01) ==
LOC: LABWHC1 11:47
PROVIDERS: ATTEND Surgery Plastic and Reconstructive Surgery
DX: E21.1 Secondary hyperparathyroidism, not elsewhere classified (principal); E89.1 Postprocedural hypoinsulinemia; D50.9 Iron deficiency anemia, unspecified; E44.0 Moderate protein-calorie malnutrition; E55.9 Vitamin D deficiency, unspecified; K74.1 Hepatic sclerosis; N19 Unspecified kidney failure; K50.90 Crohn's disease, unspecified, without complications; E66.01 Morbid (severe) obesity due to excess calories
CPT/HCPCS: 36415; 80053; 80061; 82306; 82525; 82607; 82728; 82746; 83036; 83540; 83550; 83735; 83970; 84100; 84134; 84255; 84425; 84443; 84590; 84630; 85027; 85610; 85730

== ENCOUNTER → 2019-01-05 | Outpatient (CLI) | payer BC ==
[2019-01-05 16:18] VITALS: BP 110/66; PULSE 74; RESP 16; TEMP 98; BMI 27.7
--- NOTE | 2019-01-05 17:12 | P.PN ---
Subjective Progress Note Date: 01/05/19 DATE: 01/05/2019 CHIEF COMPLAINT: Status post gastric bypass HISTORY OF PRESENT ILLNESS: Kayy Dean is a 48-year-old female who is status post gastric bypass 04/19/2018. She is 9 months out. She reports hair loss. No abdominal pain. She has nausea. She is not taking her MVI. At her height of 5 foot 6 inches, her ideal body weight is 154 pounds. Her highest weight was 238 pounds. Today she is 172 pounds from 200 pounds, 7 months ago. She has lost 66 pounds lifetime. Her body mass index is reduced from 38.5 to 27.8. She has lost 28 pounds in 7 months. Percent excess weight loss is 79%. PHYSICAL EXAM: VITAL SIGNS: 5 feet 6 inches, 172 pounds. Body mass is 27.8 Vital Signs Temp 98 F 01/05/19 16:14 Pulse 74 01/05/19 16:14 Resp 16 01/05/19 16:14 BP 110/66 01/05/19 16:14 Pulse Ox GENERAL: Well-developed female in no acute distress. HEENT: No scleral icterus. Extraocular movements grossly intact. Moist buccal mucosa. NECK: Supple without lymphadenopathy. CHEST: Nonlabored respirations. Equal bilateral excursions. CARDIOVASCULAR: Regular rate and rhythm. ABDOMEN: Soft, nondistended, nontender. MUSCULOSKELETAL: No cludding, cyanosis or edema. NEURO: No focal or lateralizing signs. Cranial nerves II through XII grossly within normal limits. PSYCH: Alert and oriented to person, place, and time. SKIN: Well perfused. Good skin turgor. Moderate panniculitis ASSESSMENT: 1. Morbid obesity due to excess calories. 2. Body mass index of 37.1 to 27.8 3. Chronic pain syndrome 4. Status post gastric bypass 5. Panniculitis PLAN: 1. Recommend bariatric labs. 2. Nystatin powder for panniculitis 3. Follow up 1 year post op, May 2019 Objective - Vital Signs Vital signs: Vital Signs Temp 98 F 01/05/19 16:14 Pulse 74 01/05/19 16:14 Resp 16 01/05/19 16:14 BP 110/66 01/05/19 16:14 Pulse Ox Intake & Output 01/04/19 01/05/19 01/05/19 18:59 06:59 18:59 Weight 78.018 kg
== END | disposition home or self-care (01) ==
LOC: BARWHC3 15:45
PROVIDERS: ATTEND Surgery Plastic and Reconstructive Surgery
DX: Z48.815 Encounter for surgical aftercare following surgery on the digestive system (principal); E66.01 Morbid (severe) obesity due to excess calories; G89.4 Chronic pain syndrome; M79.3 Panniculitis, unspecified; Z68.27 Body mass index [BMI] 27.0-27.9, adult; Z98.84 Bariatric surgery status
CPT/HCPCS: 99211

== ENCOUNTER → 2019-04-27 | Outpatient (CLI) | payer BC ==
[2019-04-27 15:49] VITALS: BP 114/78; PULSE 85; RESP 16; TEMP 98.2; BMI 26.9
--- NOTE | 2019-04-27 16:19 | P.PN ---
Subjective Progress Note Date: 04/27/19 HPI: She reports chest pain radiating to the bilateral chest. Tums does help with her symptoms. She is still taking Omeprazole. She reports chest pressure. She reports poor sleep quality from her back surgery and shoulders. ABDOMEN: No hernia PLAN: 1. Upper endoscopy for history of stricture 2. Labs 3. She is 1 year out with weight loss over 70 pounds. 4. Panniculitis for Nystatin Objective - Vital Signs Vital signs: Vital Signs Temp 98.2 F 04/27/19 15:46 Pulse 85 04/27/19 15:46 Resp 16 04/27/19 15:46 BP 114/78 04/27/19 15:46 Pulse Ox Intake & Output 04/26/19 04/27/19 04/27/19 18:59 06:59 18:59 Weight 75.75 kg
== END | disposition home or self-care (01) ==
LOC: BARWHC3 15:33
PROVIDERS: ATTEND Surgery Plastic and Reconstructive Surgery
DX: E66.01 Morbid (severe) obesity due to excess calories (principal); M79.3 Panniculitis, unspecified; Z68.27 Body mass index [BMI] 27.0-27.9, adult; Z79.899 Other long term (current) drug therapy
CPT/HCPCS: 97803; 99211

== ENCOUNTER → 2019-04-27 | Outpatient (CLI) | payer BC ==
[2019-04-27 17:39] LABS: HCT 37.7 % (34.0-46.0); HGB 12.7 gm/dL (11.4-16.0); MCH 31.4 pg (25.0-35.0); MCHC 33.8 g/dL (31.0-37.0); MCV 92.9 fL (80.0-100.0); Mean Platelet Volume 6.6; Platelet Count 248 k/uL (150-450); RBC 4.06 m/uL (3.80-5.40); RDW 12.7 % (11.5-15.5); WBC 6.2 k/uL (3.8-10.6)
[2019-04-27 17:50] LABS: INR 0.9 (<1.2); Partial Thromboplastin Time 23.1 sec (22.0-30.0); Prothrombin Time 10.1 sec (9.0-12.0)
[2019-04-28 00:41] LABS: Iron Saturation 21.67 (12.00-45.00)
[2019-04-28 00:44] LABS: African American GFR (CKD) 123.2 (60.0-200.0); Albumin 4.4 g/dL (3.80-4.90); Albumin/Globulin Ratio 2.2 (1.60-3.17); Calcium 9.5 mg/dL (8.7-10.3); Chol/HDL Ratio 2.33; Magnesium 1.9 mg/dL (1.5-2.4); Non-African American GFR(CKD) 106.3 (60.0-200.0); Phosphorus 4.1 mg/dL (2.4-5.1); Potassium 4.1 mmol/L (3.5-5.5); Total Bilirubin 0.4 mg/dL (0.3-1.2); Total Protein 6.4 g/dL (6.2-8.2)
[2019-04-28 00:50] LABS: Vitamin D 25 Hydroxy 40.6 ng/mL (30.0-100.0)
[2019-04-28 00:52] LABS: Ferritin 70.4 ng/mL (10.0-291.0)
[2019-04-28 01:17] LABS: Folate, Serum 15.1 ng/mL
[2019-04-28 02:04] LABS: Hemoglobin A1C 4.9 % (4.0-6.0)
[2019-04-28 14:42] LABS: Zinc, Serum 71 ug/dL (60-130)
[2019-04-28 15:11] LABS: Vitamin A 39 ug/dL (38-106)
[2019-05-03 17:06] LABS: Selenium 100 mcg/L (63-160)
[2019-05-09 18:27] LABS: Vit B1(Thiamine) 56 ug/L (38-122)
== END | disposition home or self-care (01) ==
LOC: LABWHC1 16:57
PROVIDERS: ATTEND Surgery Plastic and Reconstructive Surgery
DX: E66.01 Morbid (severe) obesity due to excess calories (principal); E21.1 Secondary hyperparathyroidism, not elsewhere classified; E89.1 Postprocedural hypoinsulinemia; D50.9 Iron deficiency anemia, unspecified; K90.9 Intestinal malabsorption, unspecified; E55.9 Vitamin D deficiency, unspecified; K74.1 Hepatic sclerosis; N19 Unspecified kidney failure; K50.90 Crohn's disease, unspecified, without complications
CPT/HCPCS: 36415; 80053; 80061; 82306; 82525; 82607; 82728; 82746; 83036; 83540; 83550; 83735; 83970; 84100; 84134; 84255; 84425; 84443; 84590; 84630; 85027; 85610; 85730

== ENCOUNTER 2019-05-23 14:09 | Day surgery (SDC) | payer BC ==
[2019-05-20 09:35] VITALS: BMI 25.8
--- NOTE | 2019-05-23 03:36 | P.GSHP ---
History of Present Illness H&P Date: 05/23/19 CHIEF COMPLAINT: GERD HISTORY OF PRESENT ILLNESS: The patient is a 49-year-old female who presents reports gastroesophageal reflux disease. Upper endoscopy was offered for further evaluation and management. PAST MEDICAL HISTORY: Please see list. PAST SURGICAL HISTORY: Please see list. MEDICATIONS: Please see list. ALLERGIES: Please see list. SOCIAL HISTORY: No illicit drug use FAMILY HISTORY: No reports of Crohn disease or ulcerative colitis. REVIEW OF ORGAN SYSTEMS: CONSTITUTIONAL: No reports of fevers or chills. GI: Denies any blood in stools or constipation. PHYSICAL EXAM: VITAL SIGNS: Stable GENERAL: Well-developed and pleasant in no acute distress. HEENT: No scleral icterus. Extraocular movements grossly intact. Moist buccal mucosa. NECK: Supple without lymphadenopathy. CHEST: Unlabored respirations. Equal bilateral excursions. CARDIOVASCULAR: Regular rate and rhythm. Distal 2+ pulses. ABDOMEN: Soft, nondistended. MUSCULOSKELETAL: No clubbing, cyanosis, or edema. ASSESSMENT: 1. Gastroesophageal reflux disease PLAN: 1. Recommend proceeding with an upper endoscopy Past Medical History Past Medical History: Cancer, Fibromyalgia, Skin Disorder, Thyroid Disorder Additional Past Medical History / Comment(s): occasional chest pain, hx of esophageal stricture, psoriasis, hx migraines, diverticulitis, hx cervical cancer. CHRONIC BACK PAIN. History of Any Multi-Drug Resistant Organisms: MRSA Date of last positivie culture/infection: 2010 MDRO Source:: rt axilla Past Surgical History: Appendectomy, Back Surgery, Bariatric Surgery, Cholecystectomy, Hysterectomy Additional Past Surgical History / Comment(s): laminectomy GASTRIC BYPASS 04-19-18 Past Anesthesia/Blood Transfusion Reactions: Motion Sickness Smoking Status: Never smoker - Past Family History Mother Family Medical History: Cancer Medications and Allergies Home Medications Medication Instructions Recorded Confirmed Type HYDROcodone/APAP 10-325MG [[place] 1 tab PO TID PRN 09/24/16 05/20/19 History 10-325] Thyroid,Pork [[place] Thyroid] 180 mg PO DAILY 04/08/18 05/20/19 History Omeprazole 40 mg PO DAILY #30 capsule. 04/21/18 05/20/19 Rx Biotin 1 tab PO DAILY 06/17/18 05/20/19 History Calcium Citrate 1,500 mg PO DAILY 06/17/18 05/20/19 History Multivitamins, Thera [Multivitamin 1 tab PO DAILY 05/20/19 05/20/19 History (formulary)] Vitamin B-12 1 applic PO DAILY 05/20/19 History Allergies Allergy/AdvReac Type Severity Reaction Status Date / Time adhesive Allergy Rash/Hives Verified 05/20/19 09:27 Latex, Natural Rubber Allergy Rash/Hives Verified 05/20/19 09:27
[2019-05-23] MEDS ORDERED: LIDOCAINE 1% 20 ML VIAL (10MG/ML) FOR IV START INTRADERMA PRN (14:14)
[2019-05-23] MEDS ORDERED: LACTATED RINGERS 1,000 ML IV SCH (14:14)
[2019-05-23 14:21] VITALS: RESP 18; TEMP 97.9
[2019-05-23] MEDS ORDERED: LACTATED RINGERS 1,000 ML IV ONE (14:22)
[2019-05-23] MEDS ORDERED: ONDANSETRON 4 MG/2 ML VIAL IVP ONE (14:42)
[2019-05-23] MEDS ORDERED: DEXAMETHASONE SOD PHOSPHATE 10 MG/ML 1 ML VIAL IV ONE (14:43)
[2019-05-23] MEDS ORDERED: LIDOCAINE 1% INJ 10MG/ML (20 ML MDV) ONE (14:54)
[2019-05-23] MEDS ORDERED: PROPOFOL 10 MG/ML 20 ML VIAL IV ONE (14:54)
--- NOTE | 2019-05-23 15:10 | P.PCN ---
Date of Procedure: 05/23/19 Description of Procedure: PREOPERATIVE DIAGNOSIS: Gastroesophageal reflux disease Epigastric abdominal pain History of gastric bypass History of gastrojejunal ulcer with stricture POSTOPERATIVE DIAGNOSIS: Gastroesophageal reflux disease Epigastric abdominal pain History of gastric bypass Gastrojejunal stricture with chronic ulcer without perforation Distal esophageal spasm OPERATION: Esophagogastrojejunoscopy with balloon 20 mm for distal esophagus SURGEON: Lidia Fiore MD ANESTHESIA: MAC. INDICATIONS: The patient is a 49-year-old female who presents with a history of epigastric abdominal pain including ulcers. She has history of gastroesophageal reflux disease. Benefits and risks of the procedure were described. Informed consent was obtained. DESCRIPTION: The patient was brought into the endoscopy suite and laid in the left lateral decubitus position. After a timeout was confirmed, the procedure was initiated. An Olympus gastroscope was passed along the posterior oropharynx down to the distal esophagus where the squamocolumnar junction was unremarkable. The gastric pouch was entered. Distal esophageal spasm was found as the adult gastroscope was 9.5 mm in size. A [employer] balloon dilator was placed through the scope. Final insufflation up to 20 mm was performed with a total of 2 minutes at the distal esophagus. The scope was advanced up to 60 cm from the incisors into the David limb. The mucosa of the gastrojejunal anastomosis was intact. However chronic gastrojejunal marginal ulcer was encountered. No full-thickness injury was encountered. The GI tract was desufflated. The patient tolerated the procedure well. FINDINGS: Squamocolumnar junction unremarkable at 37 cm. Distal esophageal spasm Chronic gastrojejunal ulceration encountered. Successful balloon dilatation to 20 mm. Gastric pouch 3 cm. RECOMMENDATIONS: Recommend omeprazole indefinitely as she has recurrent ulcers Plan - Discharge Summary Discharge Rx Participant: No New Discharge Prescriptions: New Omeprazole 40 mg PO DAILY #90 capsule. No Action HYDROcodone/APAP 10-325MG [[place] 10-325] 1 tab PO TID PRN PRN Reason: Pain Thyroid,Pork [[place] Thyroid] 180 mg PO DAILY Omeprazole 40 mg PO DAILY #30 capsule. Calcium Citrate 1,500 mg PO DAILY Biotin 1 tab PO DAILY Multivitamins, Thera [Multivitamin (formulary)] 1 tab PO DAILY Vitamin B-12 1 applic PO DAILY Discharge Medication List HYDROcodone/APAP 10-325MG [[place] 10-325] 1 tab PO TID PRN 09/24/16 [History] Thyroid,Pork [[place] Thyroid] 180 mg PO DAILY 04/08/18 [History] Omeprazole 40 mg PO DAILY #30 capsule. 04/21/18 [Rx] Biotin 1 tab PO DAILY 06/17/18 [History] Calcium Citrate 1,500 mg PO DAILY 06/17/18 [History] Multivitamins, Thera [Multivitamin (formulary)] 1 tab PO DAILY 05/20/19 [History] Vitamin B-12 1 applic PO DAILY 05/20/19 [History] Omeprazole 40 mg PO DAILY #90 capsule. 05/23/19 [Rx] Follow up Appointment(s)/Referral(s): [facility] [place], [place] [NON-STAFF] - 06/08/19 Patient Instructions/Handouts: Esophageal Dilation (DC) Activity/Diet/Wound Care/Special Instructions: Diet as tolerated Discharge Disposition: HOME SELF-CARE
[2019-05-23 15:26] VITALS: BP 100/66; PULSE 50
== END 2019-05-23 15:51 | disposition home or self-care (01) ==
LOC: ORWHC2ENDO 14:09
PROVIDERS: ATTEND Surgery Plastic and Reconstructive Surgery
DX: K21.9 Gastro-esophageal reflux disease without esophagitis (principal); K28.9 Gastrojejunal ulcer, unspecified as acute or chronic, without hemorrhage or perforation; K22.2 Esophageal obstruction; Z87.11 Personal history of peptic ulcer disease; Z98.84 Bariatric surgery status; E07.9 Disorder of thyroid, unspecified; Z85.41 Personal history of malignant neoplasm of cervix uteri; Z90.49 Acquired absence of other specified parts of digestive tract; Z86.14 Personal history of Methicillin resistant Staphylococcus aureus infection; Z79.3 Long term (current) use of hormonal contraceptives; Z79.891 Long term (current) use of opiate analgesic; Z79.899 Other long term (current) drug therapy
CPT/HCPCS: 43249; J1100; J2405; J2001; J2704; C1726

== ENCOUNTER 2019-10-05 17:32 | Observation (INO) | payer BC ==
[2019-10-05 18:21] LABS: Basophils # (A) 0.1 k/uL (0-0.2); Basophils % (A) 2 %; Eosinophils # (A) 0.5 k/uL (0-0.7); Eosinophils % (A) 9 %; HCT 42.8 % (34.0-46.0); HGB 13.9 gm/dL (11.4-16.0); Lymphocytes # (A) 2.3 k/uL (1.0-4.8); Lymphocytes % (A) 42 %; MCH 30.7 pg (25.0-35.0); MCHC 32.5 g/dL (31.0-37.0); MCV 94.5 fL (80.0-100.0); Mean Platelet Volume 7.1; Monocytes # (A) 0.3 k/uL (0-1.0); Monocytes % (A) 5 %; Neutrophils # (A) 2.1 k/uL (1.3-7.7); Neutrophils % (A) 39 %; Platelet Count 200 k/uL (150-450); RBC 4.53 m/uL (3.80-5.40); RDW 11.9 % (11.5-15.5); WBC 5.3 k/uL (3.8-10.6)
[2019-10-05] MEDS ORDERED: NITROGLYCERIN OINT 1 INCH/GM PACKET TOPICAL STA (18:25)
--- NOTE | 2019-10-05 18:27 | ED ---
General Adult HPI - General Chief complaint: Chest Pain Stated complaint: chest pain Time Seen by Provider: 10/05/19 17:45 Source: patient, RN notes reviewed, old records reviewed Mode of arrival: wheelchair Limitations: no limitations - History of Present Illness Initial comments: This is a 49-year-old female who presents to the emergency department co mplaining of chest pain. Patient states the chest pain is been ongoing for months but has been getting worse lately and the pain is radiating to her jaw and she feels nauseous when it occurs and she states she also gets hot. Patient states the pain is lasting 5 minutes to 15 minutes long. Patient states she has strong family history of heart disease but she herself has no risk factors. Patient denies diabetes hypertension high cholesterol and she denies smoking. Patient denies any recent fever chills or cough. Patient denies any abdominal pain currently patient denies any vomiting or diarrhea. Patient had gastric bypass surgery with Dr. Dai and was told a couple months ago she had an ulcer. - Related Data Home Medications Medication Instructions Recorded Confirmed HYDROcodone/APAP 10-325MG [[place] 1 tab PO TID PRN 09/24/16 05/20/19 10-325] Thyroid,Pork [[place] Thyroid] 180 mg PO DAILY 04/08/18 05/20/19 Biotin 1 tab PO DAILY 06/17/18 05/20/19 Calcium Citrate 1,500 mg PO DAILY 06/17/18 05/20/19 Multivitamins, Thera [Multivitamin 1 tab PO DAILY 05/20/19 05/20/19 (formulary)] Vitamin B-12 1 applic PO DAILY 05/20/19 05/23/19 Previous Rx's Medication Instructions Recorded Omeprazole 40 mg PO DAILY #30 capsule. 04/21/18 Omeprazole 40 mg PO DAILY #90 capsule. 05/23/19 Allergies Allergy/AdvReac Type Severity Reaction Status Date / Time adhesive Allergy Rash/Hives Verified 10/05/19 17:47 Latex, Natural Rubber Allergy Rash/Hives Verified 10/05/19 17:47 Review of Systems ROS Statement: Those systems with pertinent positive or pertinent negative responses have been documented in the HPI. ROS Other: All systems not noted in ROS Statement are negative. Past Medical History Past Medical History: Cancer, Fibromyalgia, Skin Disorder, Thyroid Disorder Additional Past Medical History / Comment(s): occasional chest pain, hx of esophageal stricture, psoriasis, hx migraines, diverticulitis, hx cervical ca ncer. CHRONIC BACK PAIN. History of Any Multi-Drug Resistant Organisms: None Reported, MRSA Date of last positivie culture/infection: 2010 MDRO Source:: rt axilla Past Surgical History: Appendectomy, Back Surgery, Bariatric Surgery, Cholecystectomy, Hysterectomy Additional Past Surgical History / Comment(s): laminectomy GASTRIC BYPASS 04-19-18 Past Anesthesia/Blood Transfusion Reactions: Motion Sickness Past Psychological History: Anxiety, Depression Smoking Status: Never smoker Past Alcohol Use History: Rare Past Drug Use History: None Reported - Past Family History Mother Family Medical History: Cancer General Exam - General Exam Comments Initial Comments: GENERAL: Patient is well-developed and well-nourished. Patient is nontoxic and well- hydrated and is in mild distress. ENT: Neck is soft and supple. No significant lymphadenopathy is noted. Oropharynx is clear. Moist mucous membranes. Neck has full range of motion without eliciting any pain. EYES: The sclera were anicteric and conjunctiva were pink and moist. Extraocular movements were intact and pupils were equal round and reactive to light. Ey elids were unremarkable. PULMONARY: Unlabored respirations. Good breath sounds bilaterally. No audible rales rhonchi or wheezing was noted. CARDIOVASCULAR: There is a regular rate and rhythm without any murmurs gallops or rubs. ABDOMEN: Soft and nontender with normal bowel sounds. SKIN: Skin is clear with no lesions or rashes and otherwise unremarkable. NEUROLOGIC: Patient is alert and oriented x3. Cranial nerves II through XII are grossly intact. Motor and sensory are also intact. Normal speech, volume and content. Symmetrical smile. MUSCULOSKELETAL: Normal extremities with adequate strength and full range of motion. No lower extremity swelling or edema. No calf tenderness. LYMPHATICS: No significant lymphadenopathy is noted PSYCHIATRIC: Normal psychiatric evaluation. Limitations: no limitations Course Vital Signs 10/05/19 10/05/19 10/05/19 17:44 18:25 18:36 Temperature 97.5 F L Pulse Rate 60 55 L Pulse Rate [ 62 [employer] [employer] ] Respiratory 16 18 Rate Blood Pressure 112/80 O2 Sat by Pulse 100 99 Oximetry 10/05/19 19:00 Temperature Pulse Rate 56 L Pulse Rate [ Rn [employer] ] Respiratory 18 Rate Blood Pressure 119/72 O2 Sat by Pulse 98 Oximetry Medical Decision Making - Medical Decision Making EKG shows sinus bradycardia 59 bpm MI interval 250 QRS is 86 QT interval 408 QTC is 43 per patient's EKG shows no ST segment elevation or depression or T wave abnormalities are noted. Chest x-ray shows no acute abnormality. Spoke with Dr. montiel and he agreed to admit the patient admitted the patient I consult cardiology. I also consulted Dr. Johansen follow-up possible, occasions for gastric bypass surgery. - Lab Data Result diagrams: 10/05/19 18:05 10/05/19 18:05 Lab Results 10/05/19 10/05/19 10/05/19 Range/Units 18:05 18:05 18:05 WBC 5.3 (3.8-10.6) k/uL RBC 4.53 (3.80-5.40) m/uL Hgb 13.9 (11.4-16.0) gm/dL Hct 42.8 (34.0-46.0) % MCV 94.5 (80.0-100.0) fL MCH 30.7 (25.0-35.0) pg MCHC 32.5 (31.0-37.0) g/dL RDW 11.9 (11.5-15.5) % Plt Count 200 (150-450) k/uL Neutrophils % 39 % Lymphocytes % 42 % Monocytes % 5 % Eosinophils % 9 % Basophils % 2 % Neutrophils # 2.1 (1.3-7.7) k/uL Lymphocytes # 2.3 (1.0-4.8) k/uL Monocytes # 0.3 (0-1.0) k/uL Eosinophils # 0.5 (0-0.7) k/uL Basophils # 0.1 (0-0.2) k/uL PT 10.0 (9.0-12.0) sec INR 1.0 (<1.2) APTT 20.1 L (22.0-30.0) sec Sodium 140 (137-145) mmol/L Potassium 4.2 (3.5-5.1) mmol/L Chloride 106 (98-107) mmol/L Carbon Dioxide 27 (22-30) mmol/L Anion Gap 7 mmol/L BUN 18 H (7-17) mg/dL Creatinine 0.44 L (0.52-1.04) mg/dL Est GFR (CKD-EPI)AfAm >90 (>60 ml/min/1.73 sqM) Est GFR (CKD-EPI)NonAf >90 (>60 ml/min/1.73 sqM) Glucose 84 (74-99) mg/dL Calcium 9.3 (8.4-10.2) mg/dL Magnesium 1.8 (1.6-2.3) mg/dL Total Bilirubin 0.6 (0.2-1.3) mg/dL AST 84 H (14-36) U/L ALT 101 H (4-34) U/L Alkaline Phosphatase 112 (38-126) U/L Troponin I (0.000-0.034) ng/mL Total Protein 7.4 (6.3-8.2) g/dL Albumin 4.4 (3.5-5.0) g/dL Amylase 96 (30-110) U/L Lipase 177 (23-300) U/L 10/05/19 Range/Units 18:05 WBC (3.8-10.6) k/uL RBC (3.80-5.40) m/uL Hgb (11.4-16.0) gm/dL Hct (34.0-46.0) % MCV (80.0-100.0) fL MCH (25.0-35.0) pg MCHC (31.0-37.0) g/dL RDW (11.5-15.5) % Plt Count (150-450) k/uL Neutrophils % % Lymphocytes % % Monocytes % % Eosinophils % % Basophils % % Neutrophils # (1.3-7.7) k/uL Lymphocytes # (1.0-4.8) k/uL Monocytes # (0-1.0) k/uL Eosinophils # (0-0.7) k/uL Basophils # (0-0.2) k/uL PT (9.0-12.0) sec INR (<1.2) APTT (22.0-30.0) sec Sodium (137-145) mmol/L Potassium (3.5-5.1) mmol/L Chloride (98-107) mmol/L Carbon Dioxide (22-30) mmol/L Anion Gap mmol/L BUN (7-17) mg/dL Creatinine (0.52-1.04) mg/dL Est GFR (CKD-EPI)AfAm (>60 ml/min/1.73 sqM) Est GFR (CKD-EPI)NonAf (>60 ml/min/1.73 sqM) Glucose (74-99) mg/dL Calcium (8.4-10.2) mg/dL Magnesium (1.6-2.3) mg/dL Total Bilirubin (0.2-1.3) mg/dL AST (14-36) U/L ALT (4-34) U/L Alkaline Phosphatase (38-126) U/L Troponin I <0.012 (0.000-0.034) ng/mL Total Protein (6.3-8.2) g/dL Albumin (3.5-5.0) g/dL Amylase (30-110) U/L Lipase (23-300) U/L Disposition Clinical Impression: Chest pain Disposition: ADMITTED IP TO THIS [facility] Referrals: Nonstaff,Physician [Primary Care Provider] - 1-2 days Time of Disposition: 20:23
[2019-10-05 18:37] LABS: ALT 101 U/L (4-34); AST 84 U/L (14-36); African American GFR (CKD) >90 (>60 ml/min/1.73 sqM); Albumin 4.4 g/dL (3.5-5.0); Alkaline Phosphatase 112 U/L (38-126); Anion Gap 7 mmol/L; Blood Urea Nitrogen 18 mg/dL (7-17); Calcium 9.3 mg/dL (8.4-10.2); Carbon Dioxide 27 mmol/L (22-30); Chloride 106 mmol/L (98-107); Glucose 84 mg/dL (74-99); Magnesium 1.8 mg/dL (1.6-2.3); Non-African American GFR(CKD) >90 (>60 ml/min/1.73 sqM); Potassium 4.2 mmol/L (3.5-5.1); Sodium 140 mmol/L (137-145); Total Bilirubin 0.6 mg/dL (0.2-1.3); Total Protein 7.4 g/dL (6.3-8.2)
[2019-10-05 18:43] LABS: Partial Thromboplastin Time 20.1 sec (22.0-30.0)
--- NOTE | 2019-10-05 18:52 | XR ---
EXAMINATION TYPE: XR chest 2V DATE OF EXAM: 10/05/2019 COMPARISON: 06/17/2018 HISTORY: Chest pain TECHNIQUE: FINDINGS: Heart and mediastinum are normal. Lungs are clear. Diaphragm is normal. Bony thorax appears normal. IMPRESSION: Normal chest. No change.
[2019-10-05 19:29] LABS: Amylase 96 U/L (30-110)
[2019-10-05] MEDS ORDERED: NITROGLYCERIN SL TABS 0.4 MG TAB SUBLINGUAL PRN (20:23)
--- NOTE | 2019-10-05 22:51 | P.HPIM ---
History of Present Illness H&P Date: 10/05/19 The patient is a 49-year-old female with a PMH of gastric bypass (follows with Dr Fiore) presented to the ED with complaints of epigastric chest discomfort. Patient reports that she has been having this pressure/burning-like discomfort in the epigastric region for the past several months. She has undergone an EGD by Dr. Fiore who discovered an ulcer in the patient was started on PPIs, the patient notes that the pain has not improved. She notes that over the past few days, it gradually worsened to 8 out of 10, with radiation to the jaw. The pain occurs intermittently, occurring 4-5 times a day, lasting for several minutes, and is a 10 out of 10 at its peak, with some associated nausea and no additional symptoms. Denied associated vomiting, diaphoresis, shortness of breath, or dizziness. Reports the pain is nonexertional. She denied fever, chills, cough, or leg pain. At time of interview, she reported no chest discomfort. She underwent an extensive evaluation in the emergency room with an EKG showing sinus bradycardia at 59 bpm with T-wave inversion in leads V1 and V2. Chest x-ray was unremarkable. Laboratory evaluation revealed a WBC count of 5.3, hemoglobin 13.9, troponin less than 0.012, AST 84, ALT 101, sodium 140, potassium 4.0, BUN 18, creatinine 0.44, and glucose 84. Review of Systems Pertinent positives and negatives as discussed in HPI, a complete review of systems was performed and all other systems are negative. Past Medical History Past Medical History: Cancer, Fibromyalgia, Skin Disorder, Thyroid Disorder Additional Past Medical History / Comment(s): occasional chest pain, hx of esophageal stricture, psoriasis, hx migraines, diverticulitis, hx cervical cancer. CHRONIC BACK PAIN. History of Any Multi-Drug Resistant Organisms: None Reported, MRSA Date of last positivie culture/infection: 2010 MDRO Source:: rt axilla Past Surgical History: Appendectomy, Back Surgery, Bariatric Surgery, Cholecystectomy, Hysterectomy Additional Past Surgical History / Comment(s): laminectomy GASTRIC BYPASS 04-19-18 Past Anesthesia/Blood Transfusion Reactions: Motion Sickness Past Psychological History: Anxiety, Depression Smoking Status: Never smoker Past Alcohol Use History: Rare Past Drug Use History: None Reported - Past Family History Mother Family Medical History: Cancer Medications and Allergies Home Medications Medication Instructions Recorded Confirmed Type HYDROcodone/APAP 10-325MG [[place] 1 tab PO QID 09/24/16 10/05/19 History 10-325] Thyroid,Pork [[place] Thyroid] 180 mg PO DAILY 04/08/18 10/05/19 History Multivitamins, Thera [Multivitamin 1 tab PO DAILY 05/20/19 10/05/19 History (formulary)] Omeprazole 40 mg PO BID 10/05/19 10/05/19 History Progesterone, Micronized 200 mg PO HS 10/05/19 10/05/19 History [Progesterone] Allergies Allergy/AdvReac Type Severity Reaction Status Date / Time adhesive Allergy Rash/Hives Verified 10/05/19 17:47 Latex, Natural Rubber Allergy Rash/Hives Verified 10/05/19 17:47 Physical Exam Vitals: Vital Signs Temp Pulse Pulse Resp BP Pulse Ox 10/05/19 19:00 56 L 18 119/72 98 10/05/19 18:36 55 L 18 99 10/05/19 18:25 62 10/05/19 17:44 97.5 F L 60 16 112/80 100 Intake and Output 10/05/19 10/05/19 10/05/19 06:59 14:59 22:59 Other: Weight 72.121 kg General: non toxic, no distress, appears at stated age, normal weight Derm: no unusual rashes/lesions no unusual ecchymoses, warm, dry Head: atraumatic, normocephalic, symmetric Eyes: EOMI, no lid lag, anicteric sclera, pupils equal round reactive to light ENT: Nose and ears atraumatic, no thrush, no pharyngeal erythema Neck: No thyromegaly, no cervical lymphadenopathy, trachea midline, supple Mouth: no lip lesion, mucus membranes moist Cardiovascular: S1S2 reg, no murmur, no chest wall tenderness on palpation, positive posterior tibial pulse bilateral, trace bilateral lower extremity edema, capillary refill less than 2 seconds Lungs: CTA bilateral, no rhonchi, no rales , no accessory muscle use Abdominal: soft, nontender to palpation, no guarding, no appreciable organomegaly, normal bowel sounds Ext: no gross muscle atrophy, muscle strength 5 out of 5 in all 4 extremities grossly, no contractures, Neuro: CN II-XI grossly intact, light touch intact all 4 extremities, finger to nose within normal limits, Psych: Alert, oriented, appropriate affect Results CBC & Chem 7: 10/05/19 18:05 10/05/19 18:05 Labs: Abnormal Lab Results - Last 24 Hours (Table) 10/05/19 10/05/19 Range/Units 18:05 18:05 APTT 20.1 L (22.0-30.0) sec BUN 18 H (7-17) mg/dL Creatinine 0.44 L (0.52-1.04) mg/dL AST 84 H (14-36) U/L ALT 101 H (4-34) U/L Assessment and Plan Plan: Chest pain, rule out ACS -Continue with aspirin -Cardiac monitoring -Trend troponin -Cardiology consulted History of Gastric bypass with recently diagnosed peptic ulcer disease -Consult surgery -C/w home dose: Protonix Abnormal LFTs -Surgery consulted -Monitor CMP DVT prophylaxis -Heparin The patient is admitted with an anticipated less than 2 midnight stay for evaluation of chest pain CODE STATUS: Full Code Discussed with: Patient Anticipated discharge date: 1-[address]: Home A total of 35 minutes was spent on the care of this complex patient more than 50% of the time was spent in counseling and care coordination.
[2019-10-05] MEDS: NITROGLYCERIN OINT 1 INCH/GM PACKET TOPICAL SCH (23:53)
[2019-10-06] MEDS: HYDROcodone/APAP 10-325MG 1 EACH TAB PO PRN ×2 (00:05→08:28)
[2019-10-06] MEDS: HEPARIN SODIUM,PORCINE 5,000 UNIT/ML 1 ML VIAL SQ SCH ×2 (00:06→08:21)
[2019-10-06] MEDS ORDERED: SUMAtriptan SUCCINATE 50 MG TAB PO PRN (00:45)
[2019-10-06] MEDS ORDERED: MELATONIN 5 MG TABLET PO PRN (00:45)
[2019-10-06] MEDS ORDERED: CALCIUM CARBONATE 500 MG CHEWABLE PO STA (01:30)
[2019-10-06] MEDS: NITROGLYCERIN OINT 1 INCH/GM PACKET TOPICAL SCH (05:08)
[2019-10-06] MEDS ORDERED: PANTOPRAZOLE 40 MG TABLET PO SCH (07:30)
[2019-10-06 07:57] VITALS: RESP 16; TEMP 97.6
[2019-10-06 08:04] LABS: Cholesterol 126 mg/dL (<200); HDL Cholesterol 53 mg/dL (40-60); LDL Cholesterol,Calculated 60 mg/dL (0-99); Triglycerides 63 mg/dL (<150)
[2019-10-06] MEDS ORDERED: ASPIRIN 325 MG TAB PO SCH (09:00)
[2019-10-06] MEDS ORDERED: MULTIVITAMINS, THERA 1 EACH TAB PO SCH (09:00)
--- NOTE | 2019-10-06 09:41 | P.GSCN ---
<Callie Barboza A - Last Filed: 10/06/19 09:36> History of Present Illness Consult date: 10/06/19 Reason for Consult: s/p bypass Requesting physician: Tina Anderson History of present illness: CHIEF COMPLAINT: Chest pain HISTORY OF PRESENT ILLNESS: 49-year-old female who presented to the emergency room a chief complaint of epigastric and chest pain. Patient reports her pain has improved today. She states she felt like she was having spasms in her chest yesterday. She denies nausea. Denies abdominal pain. Denies fever or chills. Patient underwent EGD with dilation in May [address] Fiore. Patient was found to have gastrojejunal stricture with chronic ulceration without perforation and distal esophageal spasms. She was started on omeprazole. PAST MEDICAL HISTORY: See list. PAST SURGICAL HISTORY: See list. MEDICATIONS: See list. ALLERGIES: See list. SOCIAL HISTORY: No illicit drug use. REVIEW OF SYSTEMS: CONSTITUTIONAL: Denies fever or chills. HEENT: Denies blurred vision, vision changes, or eye pain. Denies hemoptysis ENDOCRINE: Denies heat or cold intolerance. CARDIOVASCULAR: Reports chest discomfort RESPIRATORY: No shortness of breath. GASTROINTESTINAL: See HPI for pertinent findings NEURO: Denies history of seizures. PSYCH: No depression or suicidal ideation HEMATOLOGIC: Denies bleeding disorders. LYMPHATIC: The patient denies any lumps and bumps around the neck. GENITOURINARY: Denies any blood in urine or increased urinary frequency. MUSCULOSKELETAL: Denies myalgias. Denies joint swelling. Denies decreased range of motion beyond patients baseline. SKIN: Denies pruitis. Denies rash. PHYSICAL EXAM: VITAL SIGNS: Currently stable. GENERAL: Well-developed in no acute distress. HEENT: No sclera icterus. Extraocular movements grossly intact. Moist buccal mucosa. Head is atraumatic, normocephalic. Hears conversational speech. No nasal drainage. NECK: Supple without lymphadenopathy. CHEST: Non-labored respirations and equal bilateral excursions. CARDIOVASCULAR: Regular rate with regular rhythm. Palpable 2+ radial pulses. ABDOMEN: Soft. Nondistended. Nontender. MUSCULOSKELETAL: No clubbing, cyanosis or edema. NEUROLOGIC: No focal or lateralizing signs. Cranial nerves II through XII grossly intact. PSYCH: Appropriate affect. Alert and oriented to person, place and time. SKIN: Well perfused. Good skin turgor. LABORATORY DATA: W BC 5.3. Hemoglobin 13.9. Platelet count 200. Potassium 4.2. BUN 18. Creatinine 0.44. Magnesium 1.8. AST 84. ALT 101. IMAGING: Chest x-ray: Normal chest. No acute process. ASSESSMENT: 1. Epigastric/chest pain 2. History of gastric bypass 3. History of gastrojejunal stricture with chronic ulceration without perforation 4. History of distal esophageal spasm 5. Gastroesophageal reflux disease PLAN: Nothing by mouth. Patient to undergo EGD with dilation today with Dr. Fiore Nurse practitioner note has been reviewed by physician. Signing provider agrees with the documented findings, assessment, and plan of care. Past Medical History Past Medical History: Cancer, Fibromyalgia, Skin Disorder, Thyroid Disorder Additional Past Medical History / Comment(s): occasional chest pain, hx of esophageal stricture, psoriasis, hx migraines, diverticulitis, hx cervical cancer. CHRONIC BACK PAIN. History of Any Multi-Drug Resistant Organisms: None Reported, MRSA Year Discovered:: 2010 MDRO Source:: rt axilla Past Surgical History: Appendectomy, Back Surgery, Bariatric Surgery, Cholecystectomy, Hysterectomy Additional Past Surgical History / Comment(s): laminectomy GASTRIC BYPASS 04-19-18 Past Anesthesia/Blood Transfusion Reactions: Motion Sickness Past Psychological History: Anxiety, Depression Smoking Status: Never smoker Past Alcohol Use History: Rare Past Drug Use History: None Reported - Past Family History Mother Family Medical History: Cancer Medications and Allergies Home Medications Medication Instructions Recorded Confirmed Type HYDROcodone/APAP 10-325MG [[place] 1 tab PO QID 09/24/16 10/05/19 History 10-325] Thyroid,Pork [[place] Thyroid] 180 mg PO DAILY 04/08/18 10/05/19 History Multivitamins, Thera [Multivitamin 1 tab PO DAILY 05/20/19 10/05/19 History (formulary)] Omeprazole 40 mg PO BID 10/05/19 10/05/19 History Progesterone, Micronized 200 mg PO HS 10/05/19 10/05/19 History [Progesterone] SUMAtriptan SUCCINATE [Imitrex] 100 mg PO BID 10/05/19 10/05/19 History Allergies Allergy/AdvReac Type Severity Reaction Status Date / Time adhesive Allergy Rash/Hives Verified 10/05/19 17:47 Latex, Natural Rubber Allergy Rash/Hives Verified 10/05/19 17:47 Surgical - Exam Vital Signs Temp Pulse Resp BP Pulse Ox 97.5 F L 60 16 112/80 100 10/05/19 17:44 10/05/19 17:44 10/05/19 17:44 10/05/19 17:44 10/05/19 17:44 Results - Labs 10/05/19 18:05 10/05/19 18:05 Abnormal Lab Results - Last 24 Hours (Table) 10/05/19 10/05/19 Range/Units 18:05 18:05 APTT 20.1 L (22.0-30.0) sec BUN 18 H (7-17) mg/dL Creatinine 0.44 L (0.52-1.04) mg/dL AST 84 H (14-36) U/L ALT 101 H (4-34) U/L Diabetes panel 10/05/19 10/06/19 Range/Units 18:05 06:46 Sodium 140 (137-145) mmol/L Potassium 4.2 (3.5-5.1) mmol/L Chloride 106 (98-107) mmol/L Carbon Dioxide 27 (22-30) mmol/L BUN 18 H (7-17) mg/dL Creatinine 0.44 L (0.52-1.04) mg/dL Glucose 84 (74-99) mg/dL Calcium 9.3 (8.4-10.2) mg/dL AST 84 H (14-36) U/L ALT 101 H (4-34) U/L Alkaline Phosphatase 112 (38-126) U/L Total Protein 7.4 (6.3-8.2) g/dL Albumin 4.4 (3.5-5.0) g/dL Triglycerides 63 (<150) mg/dL HDL Cholesterol 53 (40-60) mg/dL Calcium panel 10/05/19 Range/Units 18:05 Calcium 9.3 (8.4-10.2) mg/dL Albumin 4.4 (3.5-5.0) g/dL Pituitary panel 10/05/19 Range/Units 18:05 Sodium 140 (137-145) mmol/L Potassium 4.2 (3.5-5.1) mmol/L Chloride 106 (98-107) mmol/L Carbon Dioxide 27 (22-30) mmol/L BUN 18 H (7-17) mg/dL Creatinine 0.44 L (0.52-1.04) mg/dL Glucose 84 (74-99) mg/dL Calcium 9.3 (8.4-10.2) mg/dL Adrenal panel 10/05/19 Range/Units 18:05 Sodium 140 (137-145) mmol/L Potassium 4.2 (3.5-5.1) mmol/L Chloride 106 (98-107) mmol/L Carbon Dioxide 27 (22-30) mmol/L BUN 18 H (7-17) mg/dL Creatinine 0.44 L (0.52-1.04) mg/dL Glucose 84 (74-99) mg/dL Calcium 9.3 (8.4-10.2) mg/dL Total Bilirubin 0.6 (0.2-1.3) mg/dL AST 84 H (14-36) U/L ALT 101 H (4-34) U/L Alkaline Phosphatase 112 (38-126) U/L Total Protein 7.4 (6.3-8.2) g/dL Albumin 4.4 (3.5-5.0) g/dL <Lidia Fiore N - Last Filed: 10/06/19 09:52> History of Present Illness History of present illness: As above Patient's cardiac workup was unremarkable. Proceed with endoscopic intervention Surgical - Exam Vital Signs Temp Pulse Resp BP Pulse Ox 97.5 F L 60 16 112/80 100 10/05/19 17:44 10/05/19 17:44 10/05/19 17:44 10/05/19 17:44 10/05/19 17:44 Results - Labs 10/05/19 18:05 10/05/19 18:05 Abnormal Lab Results - Last 24 Hours (Table) 10/05/19 10/05/19 Range/Units 18:05 18:05 APTT 20.1 L (22.0-30.0) sec BUN 18 H (7-17) mg/dL Creatinine 0.44 L (0.52-1.04) mg/dL AST 84 H (14-36) U/L ALT 101 H (4-34) U/L Diabetes panel 10/05/19 10/06/19 Range/Units 18:05 06:46 Sodium 140 (137-145) mmol/L Potassium 4.2 (3.5-5.1) mmol/L Chloride 106 (98-107) mmol/L Carbon Dioxide 27 (22-30) mmol/L BUN 18 H (7-17) mg/dL Creatinine 0.44 L (0.52-1.04) mg/dL Glucose 84 (74-99) mg/dL Calcium 9.3 (8.4-10.2) mg/dL AST 84 H (14-36) U/L ALT 101 H (4-34) U/L Alkaline Phosphatase 112 (38-126) U/L Total Protein 7.4 (6.3-8.2) g/dL Albumin 4.4 (3.5-5.0) g/dL Triglycerides 63 (<150) mg/dL HDL Cholesterol 53 (40-60) mg/dL Calcium panel 10/05/19 Range/Units 18:05 Calcium 9.3 (8.4-10.2) mg/dL Albumin 4.4 (3.5-5.0) g/dL Pituitary panel 10/05/19 Range/Units 18:05 Sodium 140 (137-145) mmol/L Potassium 4.2 (3.5-5.1) mmol/L Chloride 106 (98-107) mmol/L Carbon Dioxide 27 (22-30) mmol/L BUN 18 H (7-17) mg/dL Creatinine 0.44 L (0.52-1.04) mg/dL Glucose 84 (74-99) mg/dL Calcium 9.3 (8.4-10.2) mg/dL Adrenal panel 10/05/19 Range/Units 18:05 Sodium 140 (137-145) mmol/L Potassium 4.2 (3.5-5.1) mmol/L Chloride 106 (98-107) mmol/L Carbon Dioxide 27 (22-30) mmol/L BUN 18 H (7-17) mg/dL Creatinine 0.44 L (0.52-1.04) mg/dL Glucose 84 (74-99) mg/dL Calcium 9.3 (8.4-10.2) mg/dL Total Bilirubin 0.6 (0.2-1.3) mg/dL AST 84 H (14-36) U/L ALT 101 H (4-34) U/L Alkaline Phosphatase 112 (38-126) U/L Total Protein 7.4 (6.3-8.2) g/dL Albumin 4.4 (3.5-5.0) g/dL
[2019-10-06] MEDS ORDERED: PROPOFOL 10 MG/ML 20 ML VIAL IV ONE (09:42)
[2019-10-06] MEDS ORDERED: LIDOCAINE 1% INJ 10MG/ML (20 ML MDV) ONE (09:42)
[2019-10-06] MEDS ORDERED: GLYCOPYRROLATE 0.2 MG/ML 2 ML VIAL ONE (09:42)
[2019-10-06] MEDS ORDERED: LACTATED RINGERS 1,000 ML IV ONE (09:56)
--- NOTE | 2019-10-06 10:16 | P.PCN ---
Date of Procedure: 10/06/19 Description of Procedure: PREOPERATIVE DIAGNOSIS: Dysphagia. Atypical chest pain History of gastrojejunal stricture POSTOPERATIVE DIAGNOSIS: Dysphagia. Atypical chest pain History of gastrojejunal stricture Esophageal stricture Diffuse esophageal spasm OPERATION: Esophagogastroduodenoscopy with rigid dilator over the guidewire 54 Fr. SURGEON: Lidia Fiore MD ANESTHESIA: MAC. INDICATIONS: The patient is a 49-year-old female who presents with a history of atypical chest pain including dysphagia. Benefits and risks of the procedure were described. Informed consent was obtained. DESCRIPTION: The patient was brought into the endoscopy suite and laid in the left lateral decubitus position. After a timeout was confirmed, the procedure was initiated. An Olympus gastroscope was passed and the stomach was entered including jejunum. Mild gastritis was identified. No recurrent gastrojejunal ulcer is identified. The gastrojejunal anastomosis was widely patent. Moderate distal esophageal spasms with intermittent esophageal stricture was identified. The scope was advanced to the duodenum which was unremarkable. Next using an [place] rigid dilator, a guidewire was placed through the endoscope. Next the scope was withdrawn. A 54-Gambian rigid [place] dilator was passed carefully along the posterior oropharynx to 50 cm and left in place for 2-3 minutes stretch. The dilator was withdrawn including the guidewire. The scope was reentered along the posterior oropharynx with no findings of full- thickness tear of the upper esophageal sphincter. No full-thickness injury was encountered. The GI tract was desufflated. The patient tolerated the procedure well. FINDINGS: Distal esophageal spasms with intermittent esophageal stricture [place] rigid dilator 54-Gambian completed. Widely patent gastrojejunal anastomosis No recurrent gastrojejunal ulcer RECOMMENDATIONS: Upper endoscopy as needed Start Levsin for esophageal spasm
[2019-10-06] MEDS ORDERED: ONDANSETRON 4 MG/2 ML VIAL IVP PRN (10:33)
--- NOTE | 2019-10-06 10:49 | P.CRDCN ---
History of Present Illness History of present illness: HISTORY OF PRESENTING ILLNESS This is a pleasant 49-year-old female past medical history significant for gastric bypass surgery, fibromyalgia, esophagel stricture s/p dilation 05/27 19 and significant family history of premature coronary artery disease with her father and both brothers have cardiac events prior to age of 60. 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 We have been asked to see in consultation for chest pain. She states since having her gastric bypass surgery she has had frequent episodes of epigastric pain and burning. She had been diagnosed with a gastric ulcer shortly after surgery. She states typically she has epigastric pain 1-2 times per day however in the recent weeks she has noticed the pain in her epigastric region more frequently and unrelieved by Tums. The pain is the same sensation she had in the past associated with her ulcer however the intensity and unrelenting nature has increased. The pain was radiating up in her jaw on both sides. She denies shortness of breath, dizziness, nausea or palpitations. DIAGNOSTICS EKG reveals sinus mechanism with no acute ST or T-wave abnormalities. Chest xray negative for acute cardiopulmonary process. Laboratory reviewed, CBC unremarkable, sodium 140, potassium 4.2, creatinine 0.44, the trapezium 1.8, AST 84, ALT 101, cardiac enzymes negative 3, LDL 60. She takes no daily cardiac medications. REVIEW OF SYSTEMS At the time of my exam: CONSTITUTIONAL: Denies fever or chills. CARDIOVASCULAR: Denies chest pain, shortness of breath, orthopnea, PND or palpitations. RESPIRATORY: Denies cough. GASTROINTESTINAL: Denies abdominal pain, diarrhea, constipation, nausea or vomiting. MUSCULOSKELETAL: Denies myalgias. NEUROLOGIC: Denies numbness, tingling or weakness. ENDOCRINE: Denies fatigue, weight change, polydipsia or polyurina. GENITOURINARY: Denies burning, hematuria or urgency with micturation. HEMATOLOGIC: Denies history of anemia or bleeding. PHYSICAL EXAMINATION Blood pressure 113/59 heart rate 60 afebrile and maintaining oxygen saturation on room air. CONSTITUTIONAL: No apparent distress. HEENT: Head is normocephalic. Pupils are equal, round. Sclerae anicteric. Mucous membranes of the mouth are moist. No JVD. No carotid bruit. CHEST EXAMINATION: Lungs are clear to auscultation. No chest wall tenderness is noted on palpation or with deep breathing. HEART EXAMINATION: Regular rate and rhythm. S1, S2 heard. No murmurs, gallops or rub. ABDOMEN: Soft, nontender. Positive bowel sounds. EXTREMITIES: 2+ peripheral pulses, no lower extremity edema and no calf tenderness. NEUROLOGIC EXAMINATION: Patient is awake, alert and oriented x3. ASSESSMENT Chest pain, atypical. An acute event has been ruled out. History of gastric ulcer s/p gastric bypass surgery Known esophageal stricture s/p dilation PLAN An acute coronary event has been ruled out. She is scheduled to undergo EGD today with Dr. Fiore. Obtain 2D echocardiogram and doppler study to assess cardiac structure and function. Her symptoms could be related to underlying esophageal stricture and chronic ulceration. However, her symptoms and her family history are concerning for underlying CAD as well. If EGD is normal we will pursue stress testing to assess for stress induced ischemia. If EGD finds cause for her symptoms we will do outpatient stress testing. Further recommendations to follow based on clinical course. Thank you kindly for this consultation. Nurse Practitioner note has been reviewed, I agree with a documented findings and plan of care. Patient was seen and examined. Past Medical History Past Medical History: Cancer, Fibromyalgia, Skin Disorder, Thyroid Disorder Additional Past Medical History / Comment(s): occasional chest pain, hx of esophageal stricture, psoriasis, hx migraines, diverticulitis, hx cervical cancer. CHRONIC BACK PAIN. History of Any Multi-Drug Resistant Organisms: None Reported, MRSA Date of last positivie culture/infection: 2010 MDRO Source:: rt axilla Past Surgical History: Appendectomy, Back Surgery, Bariatric Surgery, Cholecystectomy, Hysterectomy Additional Past Surgical History / Comment(s): laminectomy GASTRIC BYPASS 04-19-18 Past Anesthesia/Blood Transfusion Reactions: Motion Sickness Past Psychological History: Anxiety, Depression Smoking Status: Never smoker Past Alcohol Use History: Rare Past Drug Use History: None Reported - Past Family History Mother Family Medical History: Cancer Medications and Allergies Home Medications Medication Instructions Recorded Confirmed Type HYDROcodone/APAP 10-325MG [[place] 1 tab PO QID 09/24/16 10/05/19 History 10-325] Thyroid,Pork [[place] Thyroid] 180 mg PO DAILY 04/08/18 10/05/19 History Multivitamins, Thera [Multivitamin 1 tab PO DAILY 05/20/19 10/05/19 History (formulary)] Omeprazole 40 mg PO BID 10/05/19 10/05/19 History Progesterone, Micronized 200 mg PO HS 10/05/19 10/05/19 History [Progesterone] SUMAtriptan SUCCINATE [Imitrex] 100 mg PO BID 10/05/19 10/05/19 History Allergies Allergy/AdvReac Type Severity Reaction Status Date / Time adhesive Allergy Rash/Hives Verified 10/05/19 17:47 Latex, Natural Rubber Allergy Rash/Hives Verified 10/05/19 17:47 Physical Exam Vitals: Vital Signs Temp Pulse Pulse Pulse Resp BP BP 10/06/19 10:30 97.6 F 60 16 113/59 10/06/19 07:56 97.6 F 60 16 100/65 10/06/19 03:35 61 17 10/06/19 03:30 98.1 F 55 L 15 114/55 10/05/19 23:45 17 10/05/19 23:40 97.7 F 61 17 101/61 10/05/19 21:50 97.7 F 63 17 112/62 10/05/19 21:20 73 16 10/05/19 21:00 60 16 100/76 10/05/19 20:00 82 16 102/76 10/05/19 19:00 56 L 18 119/72 10/05/19 18:36 55 L 18 10/05/19 18:25 62 10/05/19 17:44 97.5 F L 60 16 112/80 Pulse Ox 10/06/19 10:30 100 10/06/19 07:56 98 10/06/19 03:35 10/06/19 03:30 98 10/05/19 23:45 10/05/19 23:40 99 10/05/19 21:50 99 10/05/19 21:20 10/05/19 21:00 100 10/05/19 20:00 97 10/05/19 19:00 98 10/05/19 18:36 99 10/05/19 18:25 10/05/19 17:44 100 Intake and Output 10/05/19 10/06/19 10/06/19 22:59 06:59 14:59 Intake Total 480 500 Balance 480 500 Intake: IV 500 Oral 480 Other: # Voids 1 1 Weight 72.121 kg Results 10/05/19 18:05 10/05/19 18:05 Cardiac Enzymes 10/05/19 10/05/19 10/06/19 Range/Units 18:05 18:05 00:25 AST 84 H (14-36) U/L Troponin I <0.012 <0.012 (0.000-0.034) ng/mL 10/06/19 Range/Units 06:46 AST (14-36) U/L Troponin I <0.012 (0.000-0.034) ng/mL Coagulation 10/05/19 Range/Units 18:05 PT 10.0 (9.0-12.0) sec APTT 20.1 L (22.0-30.0) sec Lipids 10/06/19 Range/Units 06:46 Triglycerides 63 (<150) mg/dL Cholesterol 126 (<200) mg/dL HDL Cholesterol 53 (40-60) mg/dL CBC 10/05/19 Range/Units 18:05 WBC 5.3 (3.8-10.6) k/uL RBC 4.53 (3.80-5.40) m/uL Hgb 13.9 (11.4-16.0) gm/dL Hct 42.8 (34.0-46.0) % Plt Count 200 (150-450) k/uL Comprehensive Metabolic Panel 10/05/19 Range/Units 18:05 Sodium 140 (137-145) mmol/L Potassium 4.2 (3.5-5.1) mmol/L Chloride 106 (98-107) mmol/L Carbon Dioxide 27 (22-30) mmol/L BUN 18 H (7-17) mg/dL Creatinine 0.44 L (0.52-1.04) mg/dL Glucose 84 (74-99) mg/dL Calcium 9.3 (8.4-10.2) mg/dL AST 84 H (14-36) U/L ALT 101 H (4-34) U/L Alkaline Phosphatase 112 (38-126) U/L Total Protein 7.4 (6.3-8.2) g/dL Albumin 4.4 (3.5-5.0) g/dL Current Medications Generic Name Dose Route Start Last Admin Trade Name Freq PRN Reason Stop Dose Admin Hydrocodone Bitart/Acetaminophen 1 each 10/05/19 22:54 10/06/19 08:28 Idanha 10 PO 1 each QID PRN Administration Pain Heparin Sodium (Porcine) 5,000 unit 10/06/19 00:00 10/06/19 08:21 Heparin SQ 5,000 unit Q8HR TERE Administration Hyoscyamine 0.125 mg 10/06/19 12:00 Levsin Drops PO Q4HR TERE Melatonin 5 mg 10/06/19 00:45 10/06/19 01:24 Melatonin PO 5 mg HS PRN Administration Insomnia Multivitamins 1 each 10/06/19 09:00 10/06/19 08:21 Theragran PO 1 each DAILY TERE Administration Nitroglycerin 0.4 mg 10/05/19 20:23 Nitrostat SUBLINGUAL Q5M PRN Chest Pain Ondansetron HCl 4 mg 10/06/19 10:33 Zofran IVP Q6HR PRN Nausea And Vomiting Pantoprazole Sodium 40 mg 10/06/19 07:30 10/06/19 08:21 Protonix PO 40 mg AC-BID TERE Administration Sumatriptan Succinate 100 mg 10/06/19 00:45 Imitrex PO DAILY PRN Migraine Headache Intake and Output 10/05/19 10/06/19 10/06/19 22:59 06:59 14:59 Intake Total 480 500 Balance 480 500 Intake: IV 500 Oral 480 Other: # Voids 1 1 Weight 72.121 kg 10/05/19 18:05 10/05/19 18:05
[2019-10-06 11:23] VITALS: PULSE 51
[2019-10-06 11:25] VITALS: BP 105/58
[2019-10-06] MEDS: HYOSCYAMINE ORAL DROPS 1.875 MG/15 ML BOTTLE PO SCH ×2 (12:18→15:21)
[2019-10-06] MEDS ORDERED: MAG HYDROX/AL HYDROX/SIMETH 30 ML, HYOSCYAMINE ELIXIR 10 ML, LIDOCAINE VISCOUS 2% 10 ML PO ONE ×3 (12:19)
--- NOTE | 2019-10-06 16:01 | P.DS ---
Providers Date of admission: 10/05/19 20:23 Attending physician: Tina Anderson MD Consults: 10/05/19 20:23 Consult Physician Urgent Consulting Provider: [facility] Consult Reason/Comments: Chest pain Do you want consulting provider notified?: Yes 10/05/19 22:48 Consult Physician Urgent Consulting Provider: Lidia Fiore Consult Reason/Comments: S/p gastric bypass and peptic ulcer, presenting for epigastric discomfort Do you want consulting provider notified?: Yes Primary care physician: Physician Nonstaff Hospital Course: Final diagnosis at discharge Esophageal spasm and stricture History of gastric bypass Hospital course 49-year-old female with history of gastric bypass. Comes in for chest pain and epigastric discomfort. This has been happening and gradually worsening over time. Patient labs overall unremarkable except for slightly elevated liver enzymes. Troponins were trended and remained negative. EKG was unremarkable Cardiology evaluated the patient recommended outpatient stress test Surgery evaluated the patient performed EGD found esophageal stricture and spasms status post dilation. no gastrojujenal junction junction ulcers. Patient seen and examined. Tolerating by mouth intake Lungs clear to auscultation bilaterally no wheezing Cardiac normal S1 and S2 regular rate rhythm no murmurs Abdomen soft lax no tenderness palpation bowel sounds positive Alert and oriented to place person and time, pleasant conversant Patient will be discharged. Cleared by cardiology and general surgery for discharge. Follow-up outpatient with general surgery Follow-up outpatient with cardiology for stress test Prescriptions sent to preferred pharmacy 40 minutes were spent discharging this patient, and more than 50% of the time was spent in counseling the patient and family and in coordinating care. Procedures: EGD, found esophageal strictures and spasms s/p dilation Patient Condition at Discharge: Fair Plan - Discharge Summary Discharge Rx Participant: No New Discharge Prescriptions: New Hyoscyamine Oral Drops [Levsin Drops] 0.125 mg PO Q4HR #15 ml Pantoprazole [Protonix] 40 mg PO AC-BID #60 tablet. Continue HYDROcodone/APAP 10-325MG [[place] 10-325] 1 tab PO QID Thyroid,Pork [[place] Thyroid] 180 mg PO DAILY Multivitamins, Thera [Multivitamin (formulary)] 1 tab PO DAILY Progesterone, Micronized [Progesterone] 200 mg PO HS SUMAtriptan SUCCINATE [Imitrex] 100 mg PO BID Discontinued Omeprazole 40 mg PO BID Discharge Medication List HYDROcodone/APAP 10-325MG [[place] 10-325] 1 tab PO QID 09/24/16 [History] Thyroid,Pork [[place] Thyroid] 180 mg PO DAILY 04/08/18 [History] Multivitamins, Thera [Multivitamin (formulary)] 1 tab PO DAILY 05/20/19 [History] Progesterone, Micronized [Progesterone] 200 mg PO HS 10/05/19 [History] SUMAtriptan SUCCINATE [Imitrex] 100 mg PO BID 10/05/19 [History] Hyoscyamine Oral Drops [Levsin Drops] 0.125 mg PO Q4HR #15 ml 10/06/19 [Rx] Pantoprazole [Protonix] 40 mg PO AC-BID #60 tablet. 10/06/19 [Rx] Follow up Appointment(s)/Referral(s): Lidia Fiore MD [STAFF PHYSICIAN] - 10/12/19 4:00 pm ([facility] [phone] ) Nonstaff,Physician [Primary Care Provider] - 1-2 days Avani Chung MD [STAFF PHYSICIAN] - 10/20/19 3:30 pm (Outpatient stress test ) Patient Instructions/Handouts: Chest Pain (DC), Esophageal Spasm (GEN) Discharge Disposition: HOME SELF-CARE Plan of Treatment: follow up with cardiology for OP stress test
--- NOTE | 2019-10-07 12:45 | ECHOF ---
Referral Reason:cp MEASUREMENTS -------- HEIGHT: 170.2 cm WEIGHT: 72.1 kg BP: 100/65 RVIDd: 4.1 cm (< 3.3) IVSd: 0.9 cm (0.6 - 1.1) LVIDd: 4.3 cm (3.9 - 5.3) LVPWd: 1.1 cm (0.6 - 1.1) IVSs: 1.3 cm LVIDs: 2.8 cm LVPWs: 1.5 cm LAESV Index (A-L): 36.70 ml/m Ao Diam: 3.0 cm (2.0 - 3.7) AV Cusp: 2.2 cm (1.5 - 2.6) LA Diam: 3.3 cm (2.7 - 3.8) MV EXCURSION: 15.135 mm (> 18.000) MV EF SLOPE: 87 mm/s (70 - 150) EPSS: 0.1 cm MV E Romero: 0.85 m/s MV DecT: 220 ms MV A Romero: 0.59 m/s MV E/A Ratio: 1.45 RAP: 15.00 mmHg RVSP: 40.11 mmHg FINDINGS -------- Sinus rhythm. This was a technically adequate study. The left ventricular size is normal. Left ventricular wall thickness is normal. Overall left vent ricular systolic function is normal with, an EF between 60 - 65 %. The diastolic filling pattern is normal for the age of the patient 7.40. The right ventricle is mildly enlarged. LA is midly dilated 29-33ml/m2. The right atrium is mildly enlarged. Interatrial and interventricular septum intact. The aortic valve is trileaflet and appears structurally normal. There is mild aortic valve sclerosi s. There is no evidence of aortic regurgitation. Mild mitral regurgitation is present. Mild tricuspid regurgitation present. There is mild to moderate pulmonary hypertension. The right ventricular systolic pressure, as measured by Doppler, is 40.11mmHg. Trace/mild (physiologic) pulmonic regurgitation. The aortic root size is normal. The inferior vena cava is dilated with poor inspiratory collapse which is consistent with estimated r ight atrial pressure of 15 mmHg. There is no pericardial effusion. CONCLUSIONS -------- 1. Sinus rhythm. 2. This was a technically adequate study. 3. The left ventricular size is normal. 4. Left ventricular wall thickness is normal. 5. Overall left ventricular systolic function is normal with, an EF between 60 - 65 %. 6. The diastolic filling pattern is normal for the age of the patient 7.40 7. The right ventricle is mildly enlarged. 8. LA is midly dilated 29-33ml/m2. 9. The right atrium is mildly enlarged. 10. Interatrial and interventricular septum intact. 11. The aortic valve is trileaflet and appears structurally normal. 12. There is mild aortic valve sclerosis. 13. There is no evidence of aortic regurgitation. 14. Mild mitral regurgitation is present. 15. Mild tricuspid regurgitation present. 16. There is mild to moderate pulmonary hypertension. 17. The right ventricular systolic pressure, as measured by Doppler, is 40.11mmHg. 18. Trace/mild (physiologic) pulmonic regurgitation. 19. The aortic root size is normal. 20. The inferior vena cava is dilated with poor inspiratory collapse which is consistent with estimat ed right atrial pressure of 15 mmHg. 21. There is no pericardial effusion. BAG PATCHER: Caro Smith RDCS
== END 2019-10-06 16:20 | disposition home or self-care (01) ==
LOC: EC 17:32 → 1SOBS 20:23
PROVIDERS: ADMIT Internal Medicine; ATTEND Internal Medicine
DX: K22.4 Dyskinesia of esophagus (principal); K22.2 Esophageal obstruction; K29.70 Gastritis, unspecified, without bleeding; R00.1 Bradycardia, unspecified; R94.31 Abnormal electrocardiogram [ECG] [EKG]; R74.8 Abnormal levels of other serum enzymes; M79.7 Fibromyalgia; L40.9 Psoriasis, unspecified; E07.9 Disorder of thyroid, unspecified; K57.90 Diverticulosis of intestine, part unspecified, without perforation or abscess without bleeding; G89.29 Other chronic pain; M54.9 Dorsalgia, unspecified; F41.9 Anxiety disorder, unspecified; F32.9 Major depressive disorder, single episode, unspecified; Z98.84 Bariatric surgery status; Z87.11 Personal history of peptic ulcer disease; Z98.0 Intestinal bypass and anastomosis status; Z79.891 Long term (current) use of opiate analgesic; Z79.890 Hormone replacement therapy; Z79.899 Other long term (current) drug therapy; Z79.82 Long term (current) use of aspirin; Z91.09 Other allergy status, other than to drugs and biological substances; Z91.040 Latex allergy status; Z85.41 Personal history of malignant neoplasm of cervix uteri; Z87.19 Personal history of other diseases of the digestive system; Z86.69 Personal history of other diseases of the nervous system and sense organs; Z86.14 Personal history of Methicillin resistant Staphylococcus aureus infection; Z90.49 Acquired absence of other specified parts of digestive tract; Z98.890 Other specified postprocedural states; Z90.710 Acquired absence of both cervix and uterus; Z87.898 Personal history of other specified conditions; Z82.49 Family history of ischemic heart disease and other diseases of the circulatory system; Z80.9 Family history of malignant neoplasm, unspecified
CPT/HCPCS: 93005 ×2; 96372; 99285; 36415; 93306; 80061; 80053; 82150; 83690; 83735; 84484 ×2; 85025; 85610; 85730; 71046; 43248; G0378 ×2; J1644; J2405; J2001; J2704; 43249

== ENCOUNTER → 2019-10-05 | Outpatient (CLI) | payer BC ==
[2019-10-05 16:31] VITALS: BP 144/80; PULSE 59; RESP 16; TEMP 97.4; BMI 25.7
--- NOTE | 2019-10-05 17:32 | P.PN ---
Subjective Progress Note Date: 10/05/19 She comes in with moderate to severe epigastric and atypical chest pain. She has history of has gastric ulcers. She has risk of internal hernia. ABDOMEN: Tender at the epigastrium PLAN: 1. Go to ER 2. Plan for scope and possible dx lap Objective - Vital Signs Vital signs: Vital Signs Temp 97.4 F L 10/05/19 16:28 Pulse 59 L 10/05/19 16:28 Resp 16 10/05/19 16:28 BP 144/80 10/05/19 16:28 Pulse Ox Intake & Output 10/04/19 10/05/19 10/05/19 18:59 06:59 18:59 Weight 72.121 kg
== END ==
LOC: BARWHC3 15:15
PROVIDERS: ATTEND Surgery Plastic and Reconstructive Surgery
DX: R10.13 Epigastric pain (principal); R07.89 Other chest pain; Z87.19 Personal history of other diseases of the digestive system
CPT/HCPCS: 99211

== ENCOUNTER → 2019-10-12 | Outpatient (CLI) | payer BC ==
[2019-10-12 16:18] VITALS: BP 111/72; PULSE 86; RESP 16; TEMP 97.5; BMI 25.3
--- NOTE | 2019-10-12 16:39 | P.PN ---
Subjective Progress Note Date: 10/12/19 DATE: 10/12/2019 CHIEF COMPLAINT: Panniculitis HISTORY OF PRESENT ILLNESS: Kayy Dean is a 49-year-old female who is status post gastric bypass 04/19/2018. She is over 1 year out. She also comes in with esophageal spasms. She comes in with panniculitis and reports lower back pain from her pannus. She reports troubles with her skin especially with grooming. She has long standing attempted treatment of her pannus for over 3+ years still recalcitrant to treatment. She was recently hospitalized for esophageal spasms. At her height of 5 foot 6 inches, her ideal body weight is 154 pounds. Her highest weight was 238 pounds. Today she is comes in 157 pounds from 159 pounds, 1 week ago. She lost 2 pounds in 1 week. She has lost 81 pounds lifetime. Her body mass index is reduced from 38.5 to 25.3. Lifetime percent excess weight loss is 97 %. PHYSICAL EXAM: VITAL SIGNS: 5 feet 6 inches, 157 pounds. Body mass is 25.3 Vital Signs Temp 97.5 F L 10/12/19 16:16 Pulse 86 10/12/19 16:16 Resp 16 10/12/19 16:16 BP 111/72 10/12/19 16:16 Pulse Ox GENERAL: Well-developed female in no acute distress. HEENT: No scleral icterus. Extraocular movements grossly intact. Moist buccal mucosa. NECK: Supple without lymphadenopathy. CHEST: Nonlabored respirations. Equal bilateral excursions. CARDIOVASCULAR: Regular rate and rhythm. ABDOMEN: Soft, nondistended. No hernia. Tender at the epigastrium MUSCULOSKELETAL: No cludding, cyanosis or edema. NEURO: No focal or lateralizing signs. Cranial nerves II through XII grossly within normal limits. PSYCH: Alert and oriented to person, place, and time. SKIN: Well perfused. Good skin turgor. Moderate panniculitis ASSESSMENT: 1. Morbid obesity due to excess calories. 2. Body mass index of 37.1 to 25.3 3. Chronic pain syndrome 4. Status post gastric bypass 5. Panniculitis 6. Atypical chest pain 7. Epigastric pain PLAN: 1. She has continued epigastric abdominal pain with high risk of intra- abdominal adhesions. Recommend laparoscopy lysis of adhesions. 2. 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 A panniculectomy packet has been provided. Evaluation for panniculectomy. 3. Prescription of Nystatin for panniculectomy advised. Objective - Vital Signs Vital signs: Vital Signs Temp 97.5 F L 10/12/19 16:16 Pulse 86 10/12/19 16:16 Resp 16 10/12/19 16:16 BP 111/72 10/12/19 16:16 Pulse Ox Intake & Output 10/11/19 10/12/19 10/12/19 18:59 06:59 18:59 Weight 71.214 kg
== END | disposition home or self-care (01) ==
LOC: BARWHC3 16:15
PROVIDERS: ATTEND Surgery Plastic and Reconstructive Surgery
DX: Z48.815 Encounter for surgical aftercare following surgery on the digestive system (principal); E66.01 Morbid (severe) obesity due to excess calories; G89.4 Chronic pain syndrome; M79.3 Panniculitis, unspecified; R07.89 Other chest pain; R10.13 Epigastric pain; Z98.84 Bariatric surgery status; Z68.25 Body mass index [BMI] 25.0-25.9, adult; Z79.899 Other long term (current) drug therapy
CPT/HCPCS: 99211

== ENCOUNTER 2020-10-11 06:57 | Day surgery (SDC) | payer BC ==
[2020-10-10 08:39] VITALS: BMI 26.3
--- NOTE | 2020-10-11 06:29 | P.GSHP ---
History of Present Illness H&P Date: 10/11/20 CHIEF COMPLAINT: Esophageal stricture HISTORY OF PRESENT ILLNESS: The patient is a 50-year-old female who presents reports dysphagia with esophageal dysmotility for over one year. Upper endoscopy was offered for further evaluation and management. PAST MEDICAL HISTORY: Please see list. PAST SURGICAL HISTORY: Please see list. MEDICATIONS: Please see list. ALLERGIES: Please see list. SOCIAL HISTORY: No illicit drug use FAMILY HISTORY: No reports of Crohn disease or ulcerative colitis. REVIEW OF ORGAN SYSTEMS: CONSTITUTIONAL: No reports of fevers or chills. GI: Denies any blood in stools or constipation. PHYSICAL EXAM: VITAL SIGNS: Stable GENERAL: Well-developed and pleasant in no acute distress. HEENT: No scleral icterus. Extraocular movements grossly intact. Moist buccal mucosa. NECK: Supple without lymphadenopathy. CHEST: Unlabored respirations. Equal bilateral excursions. CARDIOVASCULAR: Regular rate and rhythm. Distal 2+ pulses. ABDOMEN: Soft, nondistended. MUSCULOSKELETAL: No clubbing, cyanosis, or edema. ASSESSMENT: 1. Esophageal stricture PLAN: 1. Recommend proceeding with an upper endoscopy with rigid dilators. Past Medical History Past Medical History: Cancer, Fibromyalgia, GERD/Reflux, Skin Disorder, Thyroid Disorder Additional Past Medical History / Comment(s): occasional chest pain, hx of esophageal stricture and spasms, psoriasis, hx migraines, diverticulitis, hx cervical cancer. CHRONIC BACK PAIN. History of Any Multi-Drug Resistant Organisms: None Reported, MRSA Date of last positivie culture/infection: 2010 MDRO Source:: rt axilla Past Surgical History: Appendectomy, Back Surgery, Bariatric Surgery, Cholecystectomy, Hysterectomy Additional Past Surgical History / Comment(s): laminectomy ,GASTRIC BYPASS 04-19-18, EGD Past Anesthesia/Blood Transfusion Reactions: Motion Sickness Smoking Status: Never smoker - Past Family History Mother Family Medical History: Cancer Medications and Allergies Home Medications Medication Instructions Recorded Confirmed Type HYDROcodone/APAP 10-325MG [[place] 1 tab PO QID 09/24/16 10/10/20 History 10-325] Thyroid,Pork [[place] Thyroid] 180 mg PO DAILY 04/08/18 10/10/20 History Multivitamins, Thera [Multivitamin 1 tab PO DAILY 05/20/19 10/10/20 History (formulary)] Progesterone, Micronized 200 mg PO HS 10/05/19 10/10/20 History [Progesterone] SUMAtriptan SUCCINATE [Imitrex] 100 mg PO BID PRN 10/05/19 10/10/20 History Pantoprazole [Protonix] 40 mg PO AC-BID #60 tablet. 10/06/19 10/10/20 Rx Nystatin 100,000 Unit/gm Powd 1 applic TOPICAL BID #60 powder 10/12/19 10/10/20 Rx [Mycostatin Powder] Hormone Implant 1 device MISCELLANE DIRECTED 06/06/20 10/10/20 History Allergies Allergy/AdvReac Type Severity Reaction Status Date / Time adhesive Allergy Rash/Hives Verified 10/10/20 08:34 Latex, Natural Rubber Allergy Rash/Hives Verified 10/10/20 08:34
[~2020-10-11 06:57] MED LIST changes: -HYDROmorphone 0.5 MG/0.5 ML SYRINGE IVP PRN; +LIDOCAINE 1% (10MG/ML) FOR IV START INTRADERMA PRN; -LIDOCAINE 1% 20 ML VIAL (10MG/ML) FOR IV START INTRADERMA PRN
[2020-10-11 07:34] VITALS: RESP 16; TEMP 97.5
[2020-10-11] MEDS ORDERED: PROPOFOL 10 MG/ML 20 ML VIAL IV ONE (08:20)
--- NOTE | 2020-10-11 08:50 | P.PCN ---
Date of Procedure: 10/11/20 Description of Procedure: PREOPERATIVE DIAGNOSIS: Dysphagia. Gastroesophageal reflux disease Esophageal stricture Esophageal dysmotility POSTOPERATIVE DIAGNOSIS: Dysphagia. Gastroesophageal reflux disease Esophageal dysmotility OPERATION: Esophagogastroduodenoscopy with rigid dilator over the guidewire 57 Fr with dilation of esophagus SURGEON: Lidia Fiore MD ANESTHESIA: MAC. INDICATIONS: The patient is a 50-year-old female who presents with a history of dysphagia and pre-existing history of esophageal dysmotility. Benefits and risks of the procedure were described. Informed consent was obtained. DESCRIPTION: The patient was brought into the endoscopy suite and laid in the left lateral decubitus position. After a timeout was confirmed, the procedure was initiated. An Olympus gastroscope was passed into the posterior oropharynx down to the esophagus. The esophagus had multiple tertiary contractions and hypertensive. The scope was entered into the gastric pouch without gastrojejunal ulceration identified and was widely patent along the gastrojejunal anastomosis. Next using an Ivorian rigid dilator, a guidewire was placed through the gastroscope. Next the scope was withdrawn. A 57-Mexican rigid Ivorian dilator was passed carefully along the posterior oropharynx to 50 cm and left in place for 2-3 minutes stretch. The dilator was withdrawn including the guidewire. The scope was reentered along the posterior oropharynx with no findings of full- thickness tear of the upper esophageal sphincter. No full-thickness injury was encountered. The GI tract was desufflated. The patient tolerated the procedure well. FINDINGS: Gastrojejunal anastomosis without ulcer or stricture Severe esophageal dysmotility with hypertensive tertiary contractions dilated Ivorian rigid dilator 57-Mexican completed. RECOMMENDATIONS: Upper endoscopy as needed Recommend dietary adjustment for esophageal dysmotility Plan - Discharge Summary Discharge Rx Participant: No New Discharge Prescriptions: Continue HYDROcodone/APAP 10-325MG [[place] 10-325] 1 tab PO QID Thyroid,Pork [[place] Thyroid] 180 mg PO DAILY Multivitamins, Thera [Multivitamin (formulary)] 1 tab PO DAILY Progesterone, Micronized [Progesterone] 200 mg PO HS SUMAtriptan SUCCINATE [Imitrex] 100 mg PO BID PRN PRN Reason: MIGRAINES Pantoprazole [Protonix] 40 mg PO AC-BID #60 tablet. Nystatin 100,000 Unit/gm Powd [Mycostatin Powder] 1 applic TOPICAL BID #60 powder Hormone Implant 1 device MISCELLANE DIRECTED Discharge Medication List HYDROcodone/APAP 10-325MG [[place] 10-325] 1 tab PO QID 09/24/16 [History] Thyroid,Pork [[place] Thyroid] 180 mg PO DAILY 04/08/18 [History] Multivitamins, Thera [Multivitamin (formulary)] 1 tab PO DAILY 05/20/19 [History] Progesterone, Micronized [Progesterone] 200 mg PO HS 10/05/19 [History] SUMAtriptan SUCCINATE [Imitrex] 100 mg PO BID PRN 10/05/19 [History] Pantoprazole [Protonix] 40 mg PO AC-BID #60 tablet. 10/06/19 [Rx] Nystatin 100,000 Unit/gm Powd [Mycostatin Powder] 1 applic TOPICAL BID #60 powder 10/12/19 [Rx] Hormone Implant 1 device MISCELLANE DIRECTED 06/06/20 [History] [facility]ment([facility] [place] [facility] Patient Instructions/Handouts: *Sur[facility] - (Anesthesia) Endoscopy Discharge Instructions, *Surgery [facility] - (Anesthesia) Discharge Instructions Outpatient Surgery, Esophageal Dilation (DC) Activity/Diet/Wound Care/Special Instructions: Diet as tolerated today. Recommend warm beverages. Discharge Disposition: HOME SELF-CARE
[2020-10-11 09:05] VITALS: BP 110/72; PULSE 88
== END 2020-10-11 09:15 | disposition home or self-care (01) ==
LOC: ORWHC2ENDO 06:57
PROVIDERS: ATTEND Surgery Plastic and Reconstructive Surgery
DX: K22.4 Dyskinesia of esophagus (principal); K22.2 Esophageal obstruction; K91.89 Other postprocedural complications and disorders of digestive system; K21.9 Gastro-esophageal reflux disease without esophagitis; M79.7 Fibromyalgia; E07.9 Disorder of thyroid, unspecified; G43.909 Migraine, unspecified, not intractable, without status migrainosus; L40.9 Psoriasis, unspecified; G89.29 Other chronic pain; M54.9 Dorsalgia, unspecified; Z85.41 Personal history of malignant neoplasm of cervix uteri; Z90.710 Acquired absence of both cervix and uterus; Z98.84 Bariatric surgery status; Z90.49 Acquired absence of other specified parts of digestive tract; Z98.890 Other specified postprocedural states; Z86.14 Personal history of Methicillin resistant Staphylococcus aureus infection; Z80.9 Family history of malignant neoplasm, unspecified; Z91.048 Other nonmedicinal substance allergy status; Z91.040 Latex allergy status; Z79.890 Hormone replacement therapy; Z79.899 Other long term (current) drug therapy; Z79.891 Long term (current) use of opiate analgesic; F41.9 Anxiety disorder, unspecified; F32.9 Major depressive disorder, single episode, unspecified
CPT/HCPCS: 43248; J2704; 43266

== ENCOUNTER → 2020-10-24 | Outpatient (CLI) | payer BC ==
[2020-10-24 15:53] VITALS: BP 117/77; PULSE 67; RESP 18; TEMP 97.9; BMI 27.9
--- NOTE | 2020-10-24 16:18 | P.PN ---
Subjective Progress Note Date: 10/24/20 DATE: 10/24/2020 CHIEF COMPLAINT: Panniculitis HISTORY OF PRESENT ILLNESS: Kayy Dean is a 50-year-old female who is status post gastric bypass 04/19/2018. She is 3 years out. 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 She sees the machine folder for psoriasis and panniculitis. After her upper endoscopy, her abdominal pain has improved including her chest pain has improved following dilation. She is looking to panniculectomy. At her height of 5 foot 6 inches, her ideal body weight is 154 pounds. Her highest weight was 238 pounds. Today she is comes in 173 pounds from 171 pounds, 5 months ago. She gained 2 pounds in 5 months. She has lost 65 pounds lifetime. Her body mass index is reduced from 38.5 to 27.9. Lifetime percent excess weight loss is 78 %. PAST MEDICAL HISTORY: 1. Osteoarthritis of the bilateral knees. 2. Diverticulosis. 3. Psoriasis. 4. Hypertriglyceridemia. 5. Hypercholesterolemia. 6. Vitamin D deficiency. 7. Morbid obesity, BMI 38.5, initial 8. History of chronic pain PAST SURGICAL HISTORY: 1. Cholecystectomy. 2. Hysterectomy. 3. Back surgery. 4. Appendectomy. 5. Gastric bypass MEDICATIONS: Home Medications Medication Instructions Recorded Confirmed HYDROcodone/APAP 10-325MG [[place] 1 tab PO QID 09/24/16 10/24/20 10-325] Thyroid,Pork [[place] Thyroid] 180 mg PO DAILY 04/08/18 10/24/20 Multivitamins, Thera [Multivitamin 1 tab PO DAILY 05/20/19 10/24/20 (formulary)] Progesterone, Micronized 200 mg PO HS 10/05/19 10/24/20 [Progesterone] SUMAtriptan SUCCINATE [Imitrex] 100 mg PO BID PRN 10/05/19 10/24/20 Hormone Implant 1 device MISCELLANE DIRECTED 06/06/20 10/24/20 Previous Rx's Medication Instructions Recorded Pantoprazole [Protonix] 40 mg PO AC-BID #60 tablet. 10/06/19 Nystatin 100,000 Unit/gm Powd 1 applic TOPICAL BID #60 powder 10/12/19 [Mycostatin Powder] ALLERGIES: Allergies Allergy/AdvReac Type Severity Reaction Status Date / Time adhesive Allergy Rash/Hives Verified 10/24/20 15:50 Latex, Natural Rubber Allergy Rash/Hives Verified 10/24/20 15:50 FAMILY HISTORY: Pertinent for hypertension including morbid obesity. SOCIAL HISTORY: Lifelong nontobacco user. REVIEW OF SYSTEMS: CONSTITUTIONAL: At her height of 5 foot 6 inches, her ideal body weight is 154 pounds. Her highest weight was 238 pounds. Her body mass index is reduced from 38.5. HEENT: Denies any problems with vision, hearing. No reports of dysphagia. ENDOCRINE: No reports of diabetes type 2. Has hypothyroidism. RESPIRATORY: Denies history of pneumonia or dyspnea on exertion. CARDIOVASCULAR: No reports of chest pain or heart attack. Hypercholesterolemia including elevated triglycerides now resolved. GASTROINTESTINAL: Denies any dumping syndrome, diarrhea, constipation. Has diverticulitis. NEUROLOGICAL: Has neuropathy and migraines. MUSCULOSKELETAL: Has severe osteoarthritis of the bilateral knees including of the lower back. Has chronic pain. PSYCH: No reports of depression or suicidal ideation. HEMATOLOGIC: No reports of DVTs or anemia. SKIN: No rash or skin cancer. PHYSICAL EXAM: VITAL SIGNS: 5 feet 6 inches, 173 pounds. Body mass index 27.9 Vital Signs Temp 97.9 F 10/24/20 15:49 Pulse 67 10/24/20 15:49 Resp 18 10/24/20 15:49 BP 117/77 10/24/20 15:49 Pulse Ox GENERAL: Well-developed female in no acute distress. HEENT: No scleral icterus. Extraocular movements grossly intact. Moist buccal mucosa. NECK: Supple without lymphadenopathy. CHEST: Nonlabored respirations. Equal bilateral excursions. CARDIOVASCULAR: Regular rate and rhythm. ABDOMEN: Soft, nondistended. Pannus with hyperemia consistent with panniculitis. Has 8 to 10 pounds of skin. MUSCULOSKELETAL: No cludding, cyanosis or edema. NEURO: No focal or lateralizing signs. Cranial nerves II through XII grossly within normal limits. PSYCH: Alert and oriented to person, place, and time. SKIN: Well perfused. Good skin turgor. Moderate panniculitis ASSESSMENT: 1. Morbid obesity due to excess calories. 2. Body mass index of 37.1 to 27.9 3. Chronic pain syndrome 4. Status post gastric bypass 5. Panniculitis PLAN: 1. Recommend pictures of her pannus. Panniculitis is recommended to correct h ygiene and functional deficits including medical refractory treatment of her panniculitis. 2. Recommend 2 week protein diet for optimal recovery. 3. Risks of bleeding, needs for drains, flap failure, infection, need for further surgery were described. She is high risk for padmini-operative complications for uncorrected nutritional defiencies. 4. Inpatient hospitalization also described 5. DVT prophylaxis. 6 Antibiotic prophylaxis 7. Will need correction of all vitamin deficiencies prior to panniculectomy. 8. Extended recovery more than 6-8 weeks described including placement of drains more than 2 weeks reviewed. Objective - Vital Signs Vital signs: Vital Signs Temp 97.9 F 10/24/20 15:49 Pulse 67 10/24/20 15:49 Resp 18 10/24/20 15:49 BP 117/77 10/24/20 15:49 Pulse Ox Intake & Output 10/23/20 10/24/20 10/24/20 18:59 06:59 18:59 Weight 78.471 kg
== END | disposition home or self-care (01) ==
LOC: BARWHC3 15:26
PROVIDERS: ATTEND Surgery Plastic and Reconstructive Surgery
DX: E66.01 Morbid (severe) obesity due to excess calories (principal); Z98.84 Bariatric surgery status; M79.3 Panniculitis, unspecified; G89.4 Chronic pain syndrome
CPT/HCPCS: 99211

== ENCOUNTER → 2020-11-08 | Outpatient (CLI) | payer BC ==
[2020-11-08 21:25] LABS: HCT 41.3 % (37.2-46.3); HGB 13.4 g/dL (12.0-15.0); MCH 31.2 pg (27.0-32.0); MCHC 32.4 g/dL (32.0-37.0); MCV 96.3 fL (80.0-97.0); Mean Platelet Volume 9.9 fL (9.5-12.2); Platelet Count 242 X 10*3/uL (140-440); RBC 4.29 X 10*6/uL (4.10-5.20); WBC 4.67 X 10*3/uL (4.50-10.00)
[2020-11-09 01:01] LABS: Partial Thromboplastin Time 27.1 sec (23.5-31.0); Prothrombin Time 10.9 sec (9.9-11.9)
[2020-11-09 03:32] LABS: Hemoglobin A1C 4.7 % (4.0-6.0)
[2020-11-09 09:02] LABS: % Iron Saturation 30.73 (12.00-45.00); African American GFR (CKD) 122.3 (60.0-200.0); Albumin 4.8 g/dL (3.80-4.90); Albumin/Globulin Ratio 2.29 (1.60-3.17); Anion Gap 12.1 mmol/L (4.00-12.00); Calcium 9.7 mg/dL (8.7-10.3); Carbon Dioxide 25.9 mmol/L (21.6-31.8); Chol/HDL Ratio 2.46; Globulin 2.1 g/dL (1.6-3.3); LDL Cholesterol,Calculated 85.2 mg/dL (0.0-131.0); Magnesium 2.1 mg/dL (1.5-2.4); Non-African American GFR(CKD) 105.5 (60.0-200.0); Phosphorus 4.2 mg/dL (2.4-5.1); Potassium 4.1 mmol/L (3.5-5.5); Total Bilirubin 0.8 mg/dL (0.3-1.2); Total Protein 6.9 g/dL (6.2-8.2); VLDL Calculation 13.8 mg/dL (5.00-40.00)
[2020-11-09 09:10] LABS: Ferritin 49.3 ng/mL (10.0-291.0)
[2020-11-09 09:46] LABS: Folate, Serum 18.4 ng/mL
[2020-11-09 12:17] LABS: Zinc, Serum 68 ug/dL (60-130)
[2020-11-12 07:07] LABS: Vitamin A 44 ug/dL (38-106)
[2020-11-12 07:31] LABS: Vit B1(Thiamine) 45 ug/L (38-122)
[2020-11-12 18:27] LABS: Selenium 115 mcg/L (63-160)
== END | disposition home or self-care (01) ==
LOC: LABWHC1 11:45
PROVIDERS: ATTEND Surgery Plastic and Reconstructive Surgery
DX: D50.8 Other iron deficiency anemias (principal); E89.1 Postprocedural hypoinsulinemia; E55.9 Vitamin D deficiency, unspecified; K74.1 Hepatic sclerosis; N19 Unspecified kidney failure; K50.90 Crohn's disease, unspecified, without complications; R00.1 Bradycardia, unspecified; K90.89 Other intestinal malabsorption
CPT/HCPCS: 36415; 80053; 80061; 82306; 82525; 82607; 82728; 82746; 83036; 83540; 83550; 83735; 83970; 84100; 84134; 84255; 84425; 84443; 84590; 84630; 85027; 85610; 85730; 93005

== ENCOUNTER → 2020-12-10 | Outpatient (CLI) | payer BC ==
[2020-12-10 16:51] LABS: Basophils # (A) 0.1 k/uL (0-0.2); Basophils % (A) 1 %; Eosinophils # (A) 0.3 k/uL (0-0.7); Eosinophils % (A) 4 %; HCT 38.7 % (34.0-46.0); HGB 13.6 gm/dL (11.4-16.0); Lymphocytes # (A) 3.1 k/uL (1.0-4.8); Lymphocytes % (A) 49 %; MCH 32.7 pg (25.0-35.0); MCV 93.4 fL (80.0-100.0); Monocytes # (A) 0.3 k/uL (0-1.0); Monocytes % (A) 5 %; Neutrophils # (A) 2.4 k/uL (1.3-7.7); Neutrophils % (A) 39 %; Platelet Count 290 k/uL (150-450); RBC 4.15 m/uL (3.80-5.40); WBC 6.3 k/uL (3.8-10.6)
[2020-12-10 17:00] LABS: ALT 27 U/L (4-34); AST 25 U/L (14-36); African American GFR (CKD) >90 (>60 ml/min/1.73 sqM); Albumin 4.4 g/dL (3.5-5.0); Alkaline Phosphatase 88 U/L (38-126); Anion Gap 5 mmol/L; Blood Urea Nitrogen 20 mg/dL (7-17); Calcium 9.3 mg/dL (8.4-10.2); Carbon Dioxide 29 mmol/L (22-30); Chloride 106 mmol/L (98-107); Glucose 91 mg/dL (74-99); Non-African American GFR(CKD) >90 (>60 ml/min/1.73 sqM); Potassium 4.5 mmol/L (3.5-5.1); Sodium 140 mmol/L (137-145); Total Bilirubin 0.4 mg/dL (0.2-1.3); Total Protein 7.1 g/dL (6.3-8.2)
== END | disposition home or self-care (01) ==
LOC: LABPAT 16:33
PROVIDERS: ATTEND Surgery Plastic and Reconstructive Surgery
DX: Z01.818 Encounter for other preprocedural examination (principal)
CPT/HCPCS: 36415; 80053; 85025; 86850; 86900; 86901

== ENCOUNTER 2020-12-17 11:04 | Observation (INO) | payer BC ==
[2020-12-10 09:44] VITALS: BMI 26.3
--- NOTE | 2020-12-17 08:37 | P.GSHP ---
History of Present Illness H&P Date: 12/17/20 CHIEF COMPLAINT: Panniculitis HISTORY OF PRESENT ILLNESS: Kayy Dean is a 50-year-old female who is status post gastric bypass 04/19/2018. She is 3 years out. She has chronic panniculitis which is refractory to medical treatment. She has been prescribed nystatin powder is without improvement. She sees the motorboat mechanic inboard for psoriasis and panniculitis. She reports redness along her skin of her abdomen. She also reports lower back pain from the pole of her pannus. She is looking to panniculectomy. At her height of 5 foot 6 inches, her ideal body weight is 154 pounds. Her highest weight was 238 pounds. Today she is comes in 167 pounds from 173 pounds, 2 months ago. She lost 5 in 2 months. She has lost 70 pounds lifetime. Her body mass index is reduced from 38.5 to 27.1. Lifetime percent excess weight loss is 84 %. PAST MEDICAL HISTORY: 1. Osteoarthritis of the bilateral knees. 2. Diverticulosis. 3. Psoriasis. 4. Hypertriglyceridemia. 5. Hypercholesterolemia. 6. Vitamin D deficiency. 7. Morbid obesity, BMI 38.5, initial 8. History of chronic pain PAST SURGICAL HISTORY: 1. Cholecystectomy. 2. Hysterectomy. 3. Back surgery. 4. Appendectomy. 5. Gastric bypass MEDICATIONS: Home Medications Medication Instructions Recorded Confirmed HYDROcodone/APAP 10-325MG [[place] 1 tab PO QID 09/24/16 10/24/20 10-325] Thyroid,Pork [[place] Thyroid] 180 mg PO DAILY 04/08/18 10/24/20 Multivitamins, Thera [Multivitamin 1 tab PO DAILY 05/20/19 10/24/20 (formulary)] Progesterone, Micronized 200 mg PO HS 10/05/19 10/24/20 [Progesterone] SUMAtriptan SUCCINATE [Imitrex] 100 mg PO BID PRN 10/05/19 10/24/20 Hormone Implant 1 device MISCELLANE DIRECTED 06/06/20 10/24/20 Previous Rx's Medication Instructions Recorded Pantoprazole [Protonix] 40 mg PO AC-BID #60 tablet. 10/06/19 Nystatin 100,000 Unit/gm Powd 1 applic TOPICAL BID #60 powder 10/12/19 [Mycostatin Powder] ALLERGIES: Allergies Allergy/AdvReac Type Severity Reaction Status Date / Time adhesive Allergy Rash/Hives Verified 10/24/20 15:50 Latex, Natural Rubber Allergy Rash/Hives Verified 10/24/20 15:50 FAMILY HISTORY: Pertinent for hypertension including morbid obesity. SOCIAL HISTORY: Lifelong nontobacco user. REVIEW OF SYSTEMS: CONSTITUTIONAL: At her height of 5 foot 6 inches, her ideal body weight is 154 pounds. Her highest weight was 238 pounds. Her body mass index is reduced from 38.5. HEENT: Denies any problems with vision, hearing. No reports of dysphagia. ENDOCRINE: No reports of diabetes type 2. Has hypothyroidism. RESPIRATORY: Denies history of pneumonia or dyspnea on exertion. CARDIOVASCULAR: No reports of chest pain or heart attack. Hypercholesterolemia including elevated triglycerides now resolved. GASTROINTESTINAL: Denies any dumping syndrome, diarrhea, constipation. Has diverticulitis. NEUROLOGICAL: Has neuropathy and migraines. MUSCULOSKELETAL: Has severe osteoarthritis of the bilateral knees including of the lower back. Has chronic pain. PSYCH: No reports of depression or suicidal ideation. HEMATOLOGIC: No reports of DVTs or anemia. SKIN: No rash or skin cancer. PHYSICAL EXAM: VITAL SIGNS: 5 feet 6 inches, 168 pounds. Body mass index 27.1 GENERAL: Well-developed female in no acute distress. HEENT: No scleral icterus. Extraocular movements grossly intact. Moist buccal mucosa. NECK: Supple without lymphadenopathy. CHEST: Nonlabored respirations. Equal bilateral excursions. CARDIOVASCULAR: Regular rate and rhythm. ABDOMEN: Soft, nondistended. Pannus with hyperemia consistent with panniculitis. Has 8 to 10 pounds of skin. MUSCULOSKELETAL: No cludding, cyanosis or edema. NEURO: No focal or lateralizing signs. Cranial nerves II through XII grossly within normal limits. PSYCH: Alert and oriented to person, place, and time. SKIN: Well perfused. Good skin turgor. Moderate panniculitis ASSESSMENT: 1. Morbid obesity due to excess calories. 2. Body mass index of 37.1 to 27.1 3. Chronic pain syndrome 4. Status post gastric bypass 5. Panniculitis PLAN: 1. Recommend panniculectomy to correct hygiene and functional deficits including medical refractory treatment of her panniculitis. 2. Risks of bleeding, needs for drains, flap failure, infection, need for further surgery were described. 3. Inpatient hospitalization also described 4. DVT prophylaxis. 5 Antibiotic prophylaxis 6. Extended recovery more than 6-8 weeks described including placement of drains more than 2 weeks reviewed. Past Medical History Past Medical History: Cancer, Fibromyalgia, Skin Disorder, Thyroid Disorder Additional Past Medical History / Comment(s): states occasional chest pain - related to hx of esophageal stricture and spasms, psoriasis, hx migraines, diverticulitis, hx cervical cancer. CHRONIC BACK PAIN. degenerative disk, herniated disk spinal stenosos, hx ulcer, History of Any Multi-Drug Resistant Organisms: MRSA Date of last positivie culture/infection: 2010 MDRO Source:: rt axilla Past Surgical History: Appendectomy, Back Surgery, Bariatric Surgery, Cholecystectomy, Hysterectomy Additional Past Surgical History / Comment(s): back surgeries with hardware: laminectomy/ fusion, GASTRIC BYPASS 04-19-18, EGD, colonoscopy Past Anesthesia/Blood Transfusion Reactions: Motion Sickness Smoking Status: Never smoker - Past Family History Mother Family Medical History: Cancer Additional Family Medical History / Comment(s): breast Medications and Allergies Home Medications Medication Instructions Recorded Confirmed Type HYDROcodone/APAP 10-325MG [[place] 1 tab PO QID 09/24/16 12/10/20 History 10-325] Thyroid,Pork [[place] Thyroid] 180 mg PO DAILY 04/08/18 12/10/20 History Progesterone, Micronized 200 mg PO HS 10/05/19 12/10/20 History [Progesterone] SUMAtriptan SUCCINATE [Imitrex] 100 mg PO BID PRN 10/05/19 12/10/20 History Hormone Implant 1 device MISCELLANE DIRECTED 06/06/20 12/10/20 History Ibuprofen [Motrin] 800 mg PO TID PRN 12/10/20 12/10/20 History Omeprazole [PriLOSEC] 40 mg PO DAILY 12/10/20 12/10/20 History Psoriasis [place] 1 applicate TOPICAL DAILY 12/10/20 12/10/20 History Allergies Allergy/AdvReac Type Severity Reaction Status Date / Time adhesive Allergy Rash/Hives Verified 12/10/20 09:31 Latex, Natural Rubber Allergy Rash/Hives Verified 12/10/20 09:31
[~2020-12-17 11:04] MED LIST changes: +ACETAMINOPHEN TAB 500 MG TAB PO PRN; +GABAPENTIN 300 MG CAP PO PRN
[2020-12-17] MEDS ORDERED: ONDANSETRON 4 MG/2 ML VIAL ONE (11:38)
[2020-12-17 12:03] LABS: Basophils # (A) 0.1 k/uL (0-0.2); Basophils % (A) 1 %; Eosinophils # (A) 0.3 k/uL (0-0.7); Eosinophils % (A) 6 %; HCT 34.9 % (34.0-46.0); HGB 12.6 gm/dL (11.4-16.0); Lymphocytes # (A) 1.8 k/uL (1.0-4.8); Lymphocytes % (A) 45 %; MCH 32.9 pg (25.0-35.0); MCHC 36.2 g/dL (31.0-37.0); MCV 90.8 fL (80.0-100.0); Monocytes # (A) 0.2 k/uL (0-1.0); Monocytes % (A) 5 %; Neutrophils # (A) 1.7 k/uL (1.3-7.7); Neutrophils % (A) 41 %; Platelet Count 258 k/uL (150-450); RBC 3.84 m/uL (3.80-5.40); RDW 12.3 % (11.5-15.5); WBC 4.1 k/uL (3.8-10.6)
[2020-12-17] MEDS ORDERED: MIDAZOLAM 2 MG/2 ML VIAL IVP ONE (12:12)
[2020-12-17] MEDS ORDERED: ONDANSETRON 4 MG/2 ML VIAL IVP ONE (12:16)
[2020-12-17] MEDS ORDERED: DEXAMETHASONE SOD PHOSPHATE 4 MG/ML 1 ML VIAL IVP ONE (12:17)
[2020-12-17] MEDS ORDERED: ROPIVACAINE 5 MG/ML 30 ML VIAL ONE (12:38)
[2020-12-17] MEDS ORDERED: KETOROLAC 15 MG/ML 1 ML VIAL ONE (12:38)
[2020-12-17] MEDS ORDERED: MIDAZOLAM 2 MG/2 ML VIAL ONE (12:38)
[2020-12-17] MEDS ORDERED: HYDROmorphone (PF) 1 MG/ML ONE (12:38)
[2020-12-17] MEDS ORDERED: HEPARIN SODIUM,PORCINE 5,000 UNIT/ML 1 ML VIAL ONE (12:38)
[2020-12-17] MEDS ORDERED: ePHEDrine SULFATE/0.9% NACL/PF 50 MG/5 ML SYRINGE IV ONE (12:38)
[2020-12-17] MEDS ORDERED: LIDOCAINE 1% INJ 10MG/ML (20 ML MDV) ONE (12:38)
[2020-12-17] MEDS ORDERED: PROPOFOL 10 MG/ML 20 ML VIAL IV ONE (12:38)
[2020-12-17] MEDS ORDERED: SUCCINYLCHOLINE CHLORIDE 100 MG/5 ML SYR IV ONE (12:38)
[2020-12-17] MEDS ORDERED: fentaNYL (PF) 50 MCG/ML 2 ML AMP ONE (12:38)
[2020-12-17] MEDS ORDERED: LACTATED RINGERS 1,000 ML IV ONE ×3 (14:10→15:38)
[2020-12-17] MEDS ORDERED: NALOXONE 0.4 MG/ML 1 ML VIAL IV PRN (15:21)
[2020-12-17] MEDS ORDERED: HYDROmorphone 1 MG/ML 1 ML SYRINGE IVP PRN (15:21)
[2020-12-17] MEDS ORDERED: TRIMETHOBENZAMIDE 100 MG/ML 2 ML VIAL IM PRN (15:21)
[2020-12-17] MEDS ORDERED: ONDANSETRON 4 MG/2 ML VIAL IVP PRN ×2 (15:21)
[2020-12-17] MEDS ORDERED: METOCLOPRAMIDE 5 MG/ML 2 ML VIAL IVP PRN (15:21)
[2020-12-17] MEDS ORDERED: SUMAtriptan succinate 50 MG TAB PO PRN (15:23)
--- NOTE | 2020-12-17 15:26 | P.OP ---
Date of Procedure: 12/17/20 Description of Procedure: SURGEON: MARIZA TAMEZ MD PREOPERATIVE DIAGNOSES: 1. Morbid obesity due to excess calories. 2. Body mass index of 37.1 to 27.1 3. Chronic pain syndrome 4. Status post gastric bypass 5. Panniculitis POSTOPERATIVE DIAGNOSES: 1. Morbid obesity due to excess calories. 2. Body mass index of 37.1 to 27.1 3. Chronic pain syndrome 4. Status post gastric bypass 5. Panniculitis OPERATION: 1. Panniculectomy, 4.38 pounds. ANESTHESIA: General ESTIMATED BLOOD LOSS: 100 mL SPECIMENS REMOVED: Pannus 4.38 pounds. COMPLICATIONS: None. CONDITION: Stable. DRAINS: Two #19 Armen drains below abdominal flap extending through the pubis. OPERATIVE FINDINGS: 1. Pannus weighing 4.38 pounds, excised. INDICATIONS: Kayy Goldsmith is a 50-year-old female who is status post gastric bypass 04/19/2018. She is 3 years out. She has chronic panniculitis which is refractory to medical treatment. She has been prescribed nystatin powder is without improvement. She sees the outpatient pharmacy manager for psoriasis and panniculitis. She reports redness along her skin of her abdomen. She also reports lower back pain from the pole of her pannus. She is looking to panniculectomy. At her height of 5 foot 6 inches, her ideal body weight is 154 pounds. Her highest weight was 238 pounds. Today she is comes in 167 pounds from 173 pounds, 2 months ago. She lost 5 in 2 months. She has lost 70 pounds lifetime. Her body mass index is reduced from 38.5 to 27.1. Lifetime percent excess weight loss is 84 %. Despite medical therapy with prescription powders, she has developed severe medical refractory panniculitis. Given her clinical symptoms, including massive weight loss, she elected for surgical intervention with a panniculectomy. Benefits and risks of the procedure including bleeding, infection, risk of flap failure, abdominal wall seromas, chronic pain were described at length. Informed consent was obtained. DESCRIPTION: In the preanesthesia care unit the patient was marked with an indelible marker. Abdominal block was performed per anesthesia. She had also been given heparin subcutaneously. The patient was brought into the operating room and laid in supine position. After general induction, a Talbert catheter was placed. The abdomen was then prepped and draped in standard sterile fashion using ChloraPrep. The skin was prepped as far laterally to the back, inferiorly to the upper thighs and superiorly to above the bilateral breasts. A timeout protocol was confirmed with the surgical team regarding patient's name, procedure to be performed, including preoperative medications. She had received Ancef 2 grams IV antibiotics. Once the time-out protocol was confirmed with the surgical team, the patient was re-marked with indelible marker whereby the midline of the xiphoid to the mons pubis was marked. The anterior/superior iliac spine along the bilateral hips was also marked. Approximately 8 cm above the pubis commissure a transverse incision was made for the inferior portion of the flap. Using a #10 blade, the incision was taken from the midline laterally to above the anterior/superior iliac spine, initially on the left side of the patient and then on the right side of the patient. The umbilicus was transected. Electro-Bovie cautery was used to control for hemostasis. The dissection was taken down to the level of the fascia. Landmarks used were the xiphoid process as well as the bilateral costal margins for the superior margin. Care was taken to avoid any creation of dog ears during the dissection. Hemostasis was once again checked with electro-Bovie cautery and all defects were addressed. Attention was now brought to closure of the flap. Using stainless steel skin sierra, the midline was once again marked of the upper flap as well as the pubic commissure. The patient was placed in a flexed position of approximately 20 degrees at the hips. The pannus was extended inferiorly to the feet. The upper flap was created once the excess skin was excised. Again care was taken to avoid any dog ears along the lateral aspect of the incisions. Once excised, the pannus was weighed at 4.38 pounds. The upper and lower flaps were reapproximated at the midline and then laterally to the skin with skin sierra. Once reapproximated, the skin was closed in layers using 0 Vicryl for the superficial fascial system followed by running 3-0 Monocryl for the deep dermis in a running subcuticular fashion. Prior to skin closure, two round #19 Armen drains were placed underneath the flap and brought out just inferior to the incision along the pubis. Drain stitch using 2-0 nylon was placed. Once the incision was closed, bulb suction was attached. Hemostasis was checked. At the end of the procedure, the needle, sponge and instrument count was verified correct. Exofin tape was placed along the length of the incision. Optifoam dressings were applied over the incision and used as a drain sponge. The patient was then transferred to a hospital bed in a beach chair position. An abdominal binder was placed and marked. The patient was taken to the postanesthesia care unit in stable condition, awake and extubated.
[2020-12-17] MEDS: HYDROmorphone 1 MG/ML 1 ML SYRINGE IVP ONE ×2 (15:28→15:33)
[2020-12-17] MEDS ORDERED: [UNRECOGNIZED DRUG - OTHER] MISCELLANE SCH (15:30)
[2020-12-17] MEDS ORDERED: HYDROmorphone 0.5 MG/0.5 ML SYRINGE IVP ONE (15:47)
[2020-12-17] MEDS: ACETAMINOPHEN TAB 325 MG TAB PO SCH (16:15)
[2020-12-17] MEDS: HYDROcodone/APAP 10-325MG 1 EACH TAB PO SCH ×2 (17:55→22:16)
[2020-12-17] MEDS ORDERED: KETOROLAC 15 MG/ML 1 ML VIAL IVP SCH (18:00)
[2020-12-17] MEDS: busPIRone HCl 5 MG TAB PO SCH (20:58)
[2020-12-17] MEDS: KETOROLAC 15 MG/ML 1 ML VIAL IVP SCH (20:58)
[2020-12-17] MEDS ORDERED: NON FORMULARY DRUG (Progesterone, Micronized [Progesterone] 200 MG Capsule) PO SCH (21:00)
[2020-12-17] MEDS: guaiFENesin 600 MG TABLET.ER PO PRN (23:01)
[2020-12-18 01:34] VITALS: RESP 16
[2020-12-18] MEDS: KETOROLAC 15 MG/ML 1 ML VIAL IVP SCH ×2 (02:40→09:21)
[2020-12-18] MEDS: ACETAMINOPHEN TAB 325 MG TAB PO SCH ×3 (05:21→13:07)
[2020-12-18] MEDS: HYDROcodone/APAP 10-325MG 1 EACH TAB PO SCH ×2 (07:25→13:20)
[2020-12-18 07:30] LABS: Basophils % (A) 1 %; Eosinophils # (A) 0.1 k/uL (0-0.7); Eosinophils % (A) 2 %; HCT 28.3 % (34.0-46.0); Lymphocytes # (A) 2.2 k/uL (1.0-4.8); Lymphocytes % (A) 37 %; MCH 31.4 pg (25.0-35.0); MCHC 33.3 g/dL (31.0-37.0); MCV 94.2 fL (80.0-100.0); Mean Platelet Volume 6.9; Monocytes # (A) 0.4 k/uL (0-1.0); Monocytes % (A) 6 %; Neutrophils % (A) 52 %; Platelet Count 259 k/uL (150-450); RBC 3.01 m/uL (3.80-5.40); RDW 13.1 % (11.5-15.5); WBC 5.8 k/uL (3.8-10.6)
[2020-12-18 07:46] LABS: HGB 9.4 gm/dL (11.4-16.0)
--- NOTE | 2020-12-18 08:45 | P.PN ---
Subjective Progress Note Date: 12/18/20 CHIEF COMPLAINT: Panniculitis HISTORY OF PRESENT ILLNESS: Kayy Dean is a 50-year-old female who is status post panniculectomy, 4.38 pounds, 12/17/2020. She is postoperative day one. Her pain has fairly controlled. She routinely takes narcotics. She has ambulated. She reported mild nausea this morning. PHYSICAL EXAM: VITAL SIGNS: Reviewed. GENERAL: Well-developed female in no acute distress. HEENT: No scleral icterus. Extraocular movements grossly intact. Moist buccal mucosa. NECK: Supple without lymphadenopathy. CHEST: Nonlabored respirations. Equal bilateral excursions. CARDIOVASCULAR: Regular rate and rhythm. ABDOMEN: Incisions clean dry and intact. RAE serosanguineous. Abdominal binder repositioned. MUSCULOSKELETAL: No cludding, cyanosis or edema. NEURO: No focal or lateralizing signs. Cranial nerves II through XII grossly within normal limits. PSYCH: Alert and oriented to person, place, and time. SKIN: Well perfused. Good skin turgor. Moderate panniculitis ASSESSMENT: 1. Morbid obesity due to excess calories. 2. Body mass index of 37.1 to 27.1 3. Chronic pain syndrome 4. Status post gastric bypass 5. Panniculitis 6. Status post panniculectomy, 4.3 pounds PLAN: 1. Will try topical analgesics nonnarcotic 2. Wound care including to not open abdominal binder described. 3. Anticipated follow-up in the bariatric center 12/21/2020 4. RAE drain teaching 5. Disposition 24 hours. Objective - Vital Signs Vital signs: Vital Signs Temp 98.0 F 12/18/20 01:34 Pulse 77 12/18/20 01:34 Resp 16 12/18/20 01:34 BP 100/63 12/18/20 01:34 Pulse Ox 98 12/18/20 01:34 Intake & Output 12/17/20 12/18/20 12/18/20 18:59 06:59 18:59 Intake Total 2070 200 Output Total 250 1082 200 Balance 1820 -2 -200 Weight 76.5 kg 76.5 kg Intake: IV 1950 Oral 120 200 Output: Drainage 207 1 97 2 110 Urine 150 875 200 Uretheral (Talbert) 200 Estimated Blood Loss 100 Other: Voiding Method Indwelling Catheter Indwelling Catheter Toilet - Labs CBC & Chem 7: 12/18/20 06:34 Labs: Abnormal Lab Results - Last 24 Hours (Table) 12/18/20 Range/Units 06:34 RBC 3.01 L (3.80-5.40) m/uL Hgb 9.4 L D (11.4-16.0) gm/dL Hct 28.3 L (34.0-46.0) %
[2020-12-18] MEDS ORDERED: PANTOPRAZOLE 40 MG/10 ML VIAL IV SCH (09:00)
[2020-12-18] MEDS ORDERED: LIDOCAINE 5% PATCH TOPICAL SCH (09:00)
[2020-12-18] MEDS ORDERED: THYROID, PORK 30 MG TAB PO SCH (09:00)
[2020-12-18] MEDS ORDERED: DICLOFENAC SODIUM GEL 100 GM TUBE TOPICAL SCH (09:00)
[2020-12-18] MEDS ORDERED: ENOXAPARIN 30 MG/0.3 ML SYRINGE SQ SCH (09:00)
[2020-12-18] MEDS: busPIRone HCl 5 MG TAB PO SCH (09:15)
--- NOTE | 2020-12-18 10:46 | P.ANPRN ---
Procedure Note - Anesthesia - Nerve Block Performed Bilateral Erector Spinae Single Time Out Performed: Yes Date of Procedure: 12/17/20 Procedure Start Time: 12:11 Procedure Stop Time: 12:14 Location of Patient: PreOp Indication: Acute Post-Operative Pain, Requested by Surgeon Sedation Type: Sedate with meaningful contact maintained Preparation: Sterile Prep Position: Prone Needle Types: Pajunk Needle Gauge: 21 Ultrasound used to visualize needle placement: Yes Ultrasound used to observe medication spread: Yes Blood Aspirated: No Pain Paresthesia on Injection Noted: No Resistance on Injection: Normal Image Stored and Saved: Yes Events: Uneventful and Well Tolerated (ropi .5% 15cc plus xylo 1% 15 at t12 bilaterally)
[2020-12-18] MEDS: guaiFENesin 600 MG TABLET.ER PO PRN (11:44)
[2020-12-18] MEDS ORDERED: SODIUM CHLORIDE 0.9% 1,000 ML IV ONE (13:17)
[2020-12-18 14:26] VITALS: BP 99/62; PULSE 76
[2020-12-18 15:05] VITALS: TEMP 98.3
--- NOTE | 2020-12-20 07:18 | P.DS ---
Providers Date of admission: 12/18/20 01:05 Expected date of discharge: 12/18/20 Attending physician: Lidia Fiore Consults: 12/17/20 05:01 Consult Physician Routine Consulting Provider: [facility] Consult Reason/Comments: regional block Do you want consulting provider notified?: Yes Primary care physician: Stated None - Discharge Diagnosis(es) (1) Panniculitis Status: Acute (2) History of gastric bypass Status: Acute (3) Chronic pain syndrome Status: Acute Hospital Course: POSTOPERATIVE DIAGNOSES: 1. Morbid obesity due to excess calories. 2. Body mass index of 37.1 to 27.1 3. Chronic pain syndrome 4. Status post gastric bypass 5. Panniculitis COURSE: Kayy Goldsmith is a 50-year-old female who is status post gastric bypass 04/19/2018. She is 3 years out. She had chronic panniculitis which was refractory to medical treatment. She also had lower back pain from her pannus. She had a panniculectomy, 4.38 pounds 12/17/20. Pain management with regional block including topical patches were used. Her pain was well controlled. LEANN drains were described for management. Prior to discharge, she was stable. Follow-up in the bariatric center in 3-4 days. Procedures: OPERATION: 1. Panniculectomy, 4.38 pounds. ANESTHESIA: General ESTIMATED BLOOD LOSS: 100 mL SPECIMENS REMOVED: Pannus 4.38 pounds. COMPLICATIONS: None. CONDITION: Stable. DRAINS: Two #19 Armen drains below abdominal flap extending through the pubis. OPERATIVE FINDINGS: 1. Pannus weighing 4.38 pounds, excised. Patient Condition at Discharge: Stable Plan - Discharge Summary Discharge Rx Participant: Yes New Discharge Prescriptions: New Lidocaine 5% Patch [Lidoderm 5% Patch] 1 patch TOPICAL DAILY #10 patch Acetaminophen Tab [Tylenol Tab] 1,000 mg PO Q6HR PRN #30 tablet PRN Reason: Pain Continue HYDROcodone/APAP 10-325MG [[place] 10-325] 1 tab PO QID Thyroid,Pork [[place] Thyroid] 180 mg PO DAILY Progesterone, Micronized [Progesterone] 200 mg PO HS SUMAtriptan SUCCINATE [Imitrex] 100 mg PO BID PRN PRN Reason: MIGRAINES Hormone Implant 1 device MISCELLANE DIRECTED Psoriasis [place] 1 applicate TOPICAL DAILY busPIRone HCl [Buspar] 5 mg PO BID Omeprazole [PriLOSEC] 40 mg PO DAILY Discontinued Ibuprofen [Motrin] 800 mg PO TID PRN PRN Reason: Pain Discharge Medication List HYDROcodone/APAP 10-325MG [[place] 10-325] 1 tab PO QID 09/24/16 [History] Thyroid,Pork [[place] Thyroid] 180 mg PO DAILY 04/08/18 [History] Progesterone, Micronized [Progesterone] 200 mg PO HS 10/05/19 [History] SUMAtriptan SUCCINATE [Imitrex] 100 mg PO BID PRN 10/05/19 [History] Hormone Implant 1 device MISCELLANE DIRECTED 06/06/20 [History] Omeprazole [PriLOSEC] 40 mg PO DAILY 12/10/20 [History] Psoriasis [place] 1 applicate TOPICAL DAILY 12/10/20 [History] busPIRone HCl [Buspar] 5 mg PO BID 12/17/20 [History] Acetaminophen Tab [Tylenol Tab] 1,000 mg PO Q6HR PRN #30 tablet 12/18/20 [Rx] Lidocaine 5% Patch [Lidoderm 5% Patch] 1 patch TOPICAL DAILY #10 patch 12/18/20 [Rx] [facility]Ref[facility] [place] [place] [place] [facility] [place]20 9:00 am Patient Instructions/Handouts: Abdominal Binder (DC), Panniculectomy (DC) Activity/Diet/Wound Care/Special Instructions: Protein intake over 75 grams daily for optimal recovery. No lifting over 4 pounds in 4 weeks, January 16 No bathtub soaks. No shower. No stretching or twisting. Sleep in a recliner. DO NOT REMOVE DRESSINGS. DO NOT REMOVE BINDER. Keep record of LEANN outputs daily. ( see leann care sheet for instructions and r ecording of amounts) Lidocaine patch placed at [address] [place] last given at [address] with any fever,chills, increased pain not controlled by pain meds, increased redness around abdominal dressing, foul smelling drainage, sudden increase or concerning drainage from leann drains or any concerns. good handwashing. Discharge Disposition: HOME SELF-CARE
== END 2020-12-18 15:15 | disposition home or self-care (01) ==
LOC: OR 11:04 → 6PED 16:00 → OR 22:56 → 6PED 12-18 01:05
PROVIDERS: ADMIT Surgery Plastic and Reconstructive Surgery; ATTEND Surgery Plastic and Reconstructive Surgery
DX: M79.3 Panniculitis, unspecified (principal); E66.01 Morbid (severe) obesity due to excess calories; Z68.26 Body mass index [BMI] 26.0-26.9, adult; G89.4 Chronic pain syndrome; Z98.84 Bariatric surgery status; L40.9 Psoriasis, unspecified; M54.5 Low back pain; R11.0 Nausea; M17.0 Bilateral primary osteoarthritis of knee; E03.9 Hypothyroidism, unspecified; E78.00 Pure hypercholesterolemia, unspecified; E78.1 Pure hyperglyceridemia; E55.9 Vitamin D deficiency, unspecified; G43.909 Migraine, unspecified, not intractable, without status migrainosus; G62.9 Polyneuropathy, unspecified; K21.9 Gastro-esophageal reflux disease without esophagitis; M47.816 Spondylosis without myelopathy or radiculopathy, lumbar region; M79.7 Fibromyalgia; Z85.41 Personal history of malignant neoplasm of cervix uteri; Z87.19 Personal history of other diseases of the digestive system; Z86.14 Personal history of Methicillin resistant Staphylococcus aureus infection; Z98.1 Arthrodesis status; Z79.891 Long term (current) use of opiate analgesic; Z90.710 Acquired absence of both cervix and uterus; Z90.49 Acquired absence of other specified parts of digestive tract; Z79.890 Hormone replacement therapy; Z79.899 Other long term (current) drug therapy; Z91.040 Latex allergy status; Z91.048 Other nonmedicinal substance allergy status; Z82.49 Family history of ischemic heart disease and other diseases of the circulatory system; Z83.49 Family history of other endocrine, nutritional and metabolic diseases; Z80.3 Family history of malignant neoplasm of breast
CPT/HCPCS: 15830; 64999; 76942; 85025 ×2; G0378 ×2; J2250; J1644; J1100; J0690 ×2; J2405; J2001; J3010; J1650; J1170 ×2; J2795; J1885 ×2; J0330; J2704; C9113; 86850; 86900; 86901

== ENCOUNTER → 2020-12-21 | Outpatient (CLI) | payer BC ==
--- NOTE | 2020-12-21 10:47 | P.PN ---
Subjective Progress Note Date: 12/21/20 DATE: 12/21/2020 CHIEF COMPLAINT: Panniculitis HISTORY OF PRESENT ILLNESS: Kayy Dean is a 50-year-old female who is status post gastric bypass 04/19/2018. She is 3 years out. She is now status post panniculectomy for 12/17/2020. She is POD 4. Her pain is controlled. She denies fevers or chills. At her height of 5 foot 6 inches, her ideal body weight is 154 pounds. Her highest weight was 238 pounds. Today she is comes in 167 pounds from 173 pounds, 2 months ago. She lost 5 pounds in 2 months. She has lost 70 pounds lifetime. Her body mass index is reduced from 38.5 to 27.1. Lifetime percent excess weight loss is 84 %. PHYSICAL EXAM: VITAL SIGNS: 5 feet 6 inches, 173 pounds. Body mass index 27.9 Vital Signs Temp 98.3 F 12/21/20 09:18 Pulse 76 12/21/20 09:18 Resp BP 133/80 12/21/20 09:18 Pulse Ox GENERAL: Well-developed female in no acute distress. HEENT: No scleral icterus. Extraocular movements grossly intact. Moist buccal mucosa. NECK: Supple without lymphadenopathy. CHEST: Nonlabored respirations. Equal bilateral excursions. CARDIOVASCULAR: Regular rate and rhythm. ABDOMEN: Incisions clean, dry, and intact. Binder was adjusted. MUSCULOSKELETAL: No cludding, cyanosis or edema. NEURO: No focal or lateralizing signs. Cranial nerves II through XII grossly within normal limits. PSYCH: Alert and oriented to person, place, and time. SKIN: Well perfused. Good skin turgor. ASSESSMENT: 1. Morbid obesity due to excess calories. 2. Body mass index of 37.1 to 27.1 3. Chronic pain syndrome 4. Status post gastric bypass 5. Status post panniculectomy, 4 pounds PLAN: 1. Dressing changes along RAE drains were performed. 2. Follow-up Thursday for complete removal of dressings and monitoring of wounds. Objective - Vital Signs Vital signs: Vital Signs Temp 98.3 F 12/21/20 09:18 Pulse 76 12/21/20 09:18 Resp BP 133/80 12/21/20 09:18 Pulse Ox Intake & Output 12/20/20 12/21/20 12/21/20 18:59 06:59 18:59 Weight 76.204 kg
== END ==
CPT/HCPCS: 99212

== ENCOUNTER → 2020-12-26 | Outpatient (CLI) | payer BC ==
--- NOTE | 2020-12-26 18:33 | P.PN ---
Subjective Progress Note Date: 12/26/20 DATE: 12/26/2020 CHIEF COMPLAINT: Panniculitis HISTORY OF PRESENT ILLNESS: Kayy Dean is a 50-year-old female who is status post gastric bypass 04/19/2018. She is 3 years out. She is now status post panniculectomy for 12/17/2020. She is POD 9. Her pain is controlled. No fevers or chills. At her height of 5 foot 6 inches, her ideal body weight is 154 pounds. Her highest weight was 238 pounds. Today she is comes in 167 pounds. Her weight is unchanged. She has lost 71 pounds lifetime. Her body mass index is reduced from 38.5 to 27.0. Lifetime percent excess weight loss is 85 %. PHYSICAL EXAM: VITAL SIGNS: 5 feet 6 inches, 167 pounds. Body mass index 27.0 Vital Signs Temp 97.8 F 12/26/20 17:49 Pulse 70 12/26/20 17:49 Resp 16 12/26/20 17:49 BP 127/65 12/26/20 17:49 Pulse Ox GENERAL: Well-developed female in no acute distress. HEENT: No scleral icterus. Extraocular movements grossly intact. Moist buccal mucosa. NECK: Supple without lymphadenopathy. CHEST: Nonlabored respirations. Equal bilateral excursions. CARDIOVASCULAR: Regular rate and rhythm. ABDOMEN: Incisions clean, dry, and intact. Flaps viable. RAE drains are dark. Binder adjusted. MUSCULOSKELETAL: No cludding, cyanosis or edema. NEURO: No focal or lateralizing signs. Cranial nerves II through XII grossly within normal limits. PSYCH: Alert and oriented to person, place, and time. SKIN: Well perfused. Good skin turgor. ASSESSMENT: 1. Morbid obesity due to excess calories. 2. Body mass index of 37.1 to 27.0 3. Chronic pain syndrome 4. Status post gastric bypass 5. Status post panniculectomy, 4 pounds PLAN: 1. Outputs are 30 mL daily 2. Follow up in 1 week. 3. External dressing removed. Objective - Vital Signs Vital signs: Vital Signs Temp 97.8 F 12/26/20 17:49 Pulse 70 12/26/20 17:49 Resp 16 12/26/20 17:49 BP 127/65 12/26/20 17:49 Pulse Ox Intake & Output 12/25/20 12/26/20 12/26/20 18:59 06:59 18:59 Weight 75.75 kg
== END ==
CPT/HCPCS: 99202

== ENCOUNTER → 2021-01-02 | Outpatient (CLI) | payer BC ==
[2021-01-02 15:13] VITALS: BP 123/72; PULSE 65; RESP 18; TEMP 97; BMI 27.1
--- NOTE | 2021-01-02 15:39 | P.PN ---
Subjective Progress Note Date: 01/02/21 DATE: 01/02/2021 CHIEF COMPLAINT: Panniculectomy HISTORY OF PRESENT ILLNESS: Kayy Dean is a 50-year-old female who is status post gastric bypass 04/19/2018. She is 3 years out. She is now status post panniculectomy for 12/17/2020. She is 2 weeks out. She feels better. At her height of 5 foot 6 inches, her ideal body weight is 154 pounds. Her highest weight was 238 pounds. Today she is comes in 168 pounds from 167 pounds, 1 week ago. She gained 1 pound in 1 week. She has lost 70 pounds lifetim e. Her body mass index is reduced from 38.5 to 27.1. Lifetime percent excess weight loss is 84 %. PHYSICAL EXAM: VITAL SIGNS: 5 feet 6 inches, 168 pounds. Body mass index 27.1 Vital Signs Temp 97.0 F L 01/02/21 15:02 Pulse 65 01/02/21 15:02 Resp 18 01/02/21 15:02 BP 123/72 01/02/21 15:02 Pulse Ox GENERAL: Well-developed female in no acute distress. HEENT: No scleral icterus. Extraocular movements grossly intact. Moist buccal mucosa. NECK: Supple without lymphadenopathy. CHEST: Nonlabored respirations. Equal bilateral excursions. CARDIOVASCULAR: Regular rate and rhythm. ABDOMEN: Flaps are viable. External tape removed. No infection. RAE drains are dark. MUSCULOSKELETAL: No cludding, cyanosis or edema. NEURO: No focal or lateralizing signs. Cranial nerves II through XII grossly within normal limits. PSYCH: Alert and oriented to person, place, and time. SKIN: Well perfused. Good skin turgor. ASSESSMENT: 1. Morbid obesity due to excess calories. 2. Body mass index of 37.1 to 27.1 3. Chronic pain syndrome 4. Status post gastric bypass 5. Status post panniculectomy, 4 pounds PLAN: 1. Follow up 1 week. 2. Continue RAE drain care. Objective - Vital Signs Vital signs: Vital Signs Temp 97.0 F L 01/02/21 15:02 Pulse 65 01/02/21 15:02 Resp 18 01/02/21 15:02 BP 123/72 01/02/21 15:02 Pulse Ox Intake & Output 01/01/21 01/02/21 01/02/21 18:59 06:59 18:59 Weight 76.204 kg
== END | disposition home or self-care (01) ==
LOC: BARWHC3 13:27
PROVIDERS: ATTEND Surgery Plastic and Reconstructive Surgery
DX: E66.01 Morbid (severe) obesity due to excess calories (principal); G89.4 Chronic pain syndrome; Z98.84 Bariatric surgery status; Z68.27 Body mass index [BMI] 27.0-27.9, adult; Z91.048 Other nonmedicinal substance allergy status; Z91.040 Latex allergy status
CPT/HCPCS: 99212

== ENCOUNTER → 2021-01-09 | Outpatient (CLI) | payer BC ==
[2021-01-09 15:05] VITALS: BP 125/72; PULSE 81; TEMP 98; BMI 26.6
--- NOTE | 2021-01-09 15:33 | P.PN ---
Subjective Progress Note Date: 01/09/21 DATE: 01/09/2021 CHIEF COMPLAINT: Panniculectomy HISTORY OF PRESENT ILLNESS: Kayy Dean is a 50-year-old female who is status post gastric bypass 04/19/2018. She is 3 years out. She is now status post panniculectomy for 12/17/2020. She is 3 weeks out. She is doing well. At her height of 5 foot 6 inches, her ideal body weight is 154 pounds. Her highest weight was 238 pounds. Today she is comes in 165 pounds from 168 pounds, 1 week ago. She has lost 3 pound2 in 1 week. She has lost 73 pounds li fetime. Her body mass index is reduced from 38.5 to 26.6. Lifetime percent excess weight loss is 87 %. PHYSICAL EXAM: VITAL SIGNS: 5 feet 6 inches, 165 pounds. Body mass index 26.6 Vital Signs Temp 98 F 01/09/21 14:59 Pulse 81 01/09/21 14:59 Resp BP 125/72 01/09/21 14:59 Pulse Ox GENERAL: Well-developed female in no acute distress. HEENT: No scleral icterus. Extraocular movements grossly intact. Moist buccal mucosa. NECK: Supple without lymphadenopathy. CHEST: Nonlabored respirations. Equal bilateral excursions. CARDIOVASCULAR: Regular rate and rhythm. ABDOMEN: Flaps are viable. Incicisons are clean, dry, and intact. RAE drains removed. MUSCULOSKELETAL: No cludding, cyanosis or edema. NEURO: No focal or lateralizing signs. Cranial nerves II through XII grossly within normal limits. PSYCH: Alert and oriented to person, place, and time. SKIN: Well perfused. Good skin turgor. ASSESSMENT: 1. Morbid obesity due to excess calories. 2. Body mass index of 37.1 to 26.6 3. Chronic pain syndrome 4. Status post gastric bypass 5. Status post panniculectomy, 4 pounds PLAN: 1. RAE drain were removed. 2. Plan for follow-up in 1 week. Objective - Vital Signs Vital signs: Vital Signs Temp 98 F 01/09/21 14:59 Pulse 81 01/09/21 14:59 Resp BP 125/72 01/09/21 14:59 Pulse Ox Intake & Output 05/12/2601/09/21 01/09/21 18:59 06:59 18:59 Weight 74.843 kg
== END ==
LOC: BARWHC3 14:11
PROVIDERS: ATTEND Surgery Plastic and Reconstructive Surgery
DX: E66.01 Morbid (severe) obesity due to excess calories (principal); G89.4 Chronic pain syndrome; Z98.84 Bariatric surgery status; Z98.890 Other specified postprocedural states; Z68.26 Body mass index [BMI] 26.0-26.9, adult; Z91.040 Latex allergy status; Z91.048 Other nonmedicinal substance allergy status
CPT/HCPCS: 99212

== ENCOUNTER → 2021-01-16 | Outpatient (CLI) | payer BC ==
--- NOTE | 2021-01-16 17:23 | P.PN ---
Subjective Progress Note Date: 01/16/21 DATE: 01/16/2021 CHIEF COMPLAINT: Panniculectomy HISTORY OF PRESENT ILLNESS: Kayy Dean is a 50-year-old female who is status post gastric bypass 04/19/2018. She is 3 years out. She is now status post panniculectomy for 12/17/2020. She has flat abs. She feels well. She looks great. She is 4 weeks out. At her height of 5 foot 6 inches, her ideal body weight is 154 pounds. Her highest weight was 238 pounds. Today she is comes in 169 pounds from 165 pounds, 1 week ago. She has gained 4 pound in 1 week. She has lost 69 pounds lifetime. Her body mass index is reduced from 38.5 to 27.3. Lifetime percent excess weight loss is 83 %. PHYSICAL EXAM: VITAL SIGNS: 5 feet 6 inches, 169 pounds. Body mass index 27.3 Vital Signs Temp 97.8 F 01/16/21 17:28 Pulse 71 01/16/21 17:28 Resp BP 115/75 01/16/21 17:28 Pulse Ox GENERAL: Well-developed female in no acute distress. HEENT: No scleral icterus. Extraocular movements grossly intact. Moist buccal mucosa. NECK: Supple without lymphadenopathy. CHEST: Nonlabored respirations. Equal bilateral excursions. CARDIOVASCULAR: Regular rate and rhythm. ABDOMEN: Abdomen flat. Incisions are granulated. MUSCULOSKELETAL: No cludding, cyanosis or edema. NEURO: No focal or lateralizing signs. Cranial nerves II through XII grossly within normal limits. PSYCH: Alert and oriented to person, place, and time. SKIN: Well perfused. Good skin turgor. ASSESSMENT: 1. Morbid obesity due to excess calories. 2. Body mass index of 37.1 to 27.3 3. Chronic pain syndrome 4. Status post gastric bypass 5. Status post panniculectomy, 4 pounds PLAN: 1. She is doing well. 2. Follow up as needed.
[2021-01-16 17:31] VITALS: BP 115/75; PULSE 71; TEMP 97.8; BMI 27.2
== END ==
LOC: BARWHC3 16:14
PROVIDERS: ATTEND Surgery Plastic and Reconstructive Surgery
DX: E66.01 Morbid (severe) obesity due to excess calories (principal); G89.4 Chronic pain syndrome; Z68.27 Body mass index [BMI] 27.0-27.9, adult; Z98.84 Bariatric surgery status; Z98.890 Other specified postprocedural states; Z91.048 Other nonmedicinal substance allergy status; Z91.040 Latex allergy status
CPT/HCPCS: 99212

== ENCOUNTER → 2022-03-13 | Outpatient (CLI) | payer BC ==
[~2022-03-13] MED LIST changes: -ACETAMINOPHEN TAB 500 MG TAB PO PRN; -GABAPENTIN 300 MG CAP PO PRN; +IRON SUCROSE 300 MG in SODIUM CHLORIDE 0.9% 250 ML IVPB NR; -LACTATED RINGERS 1,000 ML IV SCH; -LIDOCAINE 1% (10MG/ML) FOR IV START INTRADERMA PRN; +SODIUM CHLORIDE 0.9% 500 ML 500 ML in EMPTY BAG 1 BAG IV PRN
[2022-03-13 11:49] VITALS: BP 107/71; PULSE 51; RESP 16; TEMP 97.8
== END ==
LOC: PROCWHC3 11:05 → EDSTATUS 11:45
PROVIDERS: ATTEND Physician Assistant
DX: D50.9 Iron deficiency anemia, unspecified (principal); Z91.048 Other nonmedicinal substance allergy status; Z91.040 Latex allergy status
CPT/HCPCS: 96365; 96366; J1756

== ENCOUNTER → 2022-04-11 | Outpatient (CLI) | payer BC ==
[2022-04-11 13:21] VITALS: BP 116/75; PULSE 75; RESP 16; TEMP 97.6
== END ==
LOC: PROCWHC3 12:58
PROVIDERS: ATTEND Physician Assistant
DX: D50.9 Iron deficiency anemia, unspecified (principal); I10 Essential (primary) hypertension; I25.10 Atherosclerotic heart disease of native coronary artery without angina pectoris; Z91.040 Latex allergy status; Z91.048 Other nonmedicinal substance allergy status
CPT/HCPCS: 96365; 96366; J1756

== ENCOUNTER → 2022-04-15 | Outpatient (CLI) | payer BC ==
[2022-04-15 12:55] LABS: INR 0.9 (<1.2); Prothrombin Time 10.2 sec (9.0-12.0)
[2022-04-15 18:15] LABS: HGB 12.4 g/dL (12.0-15.0); MCH 29.8 pg (27.0-32.0); MCHC 31.8 g/dL (32.0-37.0); MCV 93.8 fL (80.0-97.0); NRBC Per 100 WBC 0 /100 WBCS (0.0-0.0); Platelet Count 238 X 10*3/uL (140-440); RBC 4.16 X 10*6/uL (4.10-5.20); RDW 15.1 % (11.5-14.5); WBC 5.03 X 10*3/uL (4.50-10.00)
[2022-04-15 20:02] LABS: HDL Cholesterol 72.8 mg/dL (40.00-60.00); Prealbumin 19.7 mg/dL (18.0-42.0)
[2022-04-15 20:13] LABS: Chol/HDL Ratio 2.1 Ratio; LDL Cholesterol,Direct Reflex 76.9 mg/dL (0.00-129.00)
[2022-04-15 20:51] LABS: Magnesium 2.1 mg/dL (1.5-2.4); Phosphorus 3.4 mg/dL (2.4-5.1)
[2022-04-15 21:12] LABS: % Iron Saturation 13.19 (12.00-45.00); African American GFR (CKD) 120.6 (60.0-200.0); Albumin 4.4 g/dL (3.8-4.9); Albumin/Globulin Ratio 1.69 (1.60-3.17); Anion Gap 12.2 mmol/L (10.00-18.00); BUN/Creat Ratio 28.5 Ratio (12.00-20.00); Blood Urea Nitrogen 17.1 mg/dL (9.0-27.0); Calcium 9.1 mg/dL (8.7-10.3); Carbon Dioxide 22.8 mmol/L (20.0-27.5); Globulin 2.6 g/dL (1.6-3.3); Non-African American GFR(CKD) 104.1 (60.0-200.0); Potassium 4.5 mmol/L (3.5-5.5); Total Bilirubin 0.3 mg/dL (0.30-1.20)
[2022-04-16 11:36] LABS: Zinc, Serum 63 ug/dL (60-130)
== END | disposition home or self-care (01) ==
LOC: LABWHC1 12:00
PROVIDERS: ATTEND Surgery Plastic and Reconstructive Surgery
DX: E66.01 Morbid (severe) obesity due to excess calories (principal); E89.1 Postprocedural hypoinsulinemia; E21.1 Secondary hyperparathyroidism, not elsewhere classified; D50.8 Other iron deficiency anemias; E44.0 Moderate protein-calorie malnutrition; E55.9 Vitamin D deficiency, unspecified; K74.1 Hepatic sclerosis; N19 Unspecified kidney failure; K50.90 Crohn's disease, unspecified, without complications
CPT/HCPCS: 36415; 80053; 80061; 82306; 82525; 82607; 82728; 82746; 83036; 83540; 83550; 83721; 83735; 83970; 84100; 84134; 84255; 84425; 84443; 84590; 84630; 85027; 85610; 85730

== ENCOUNTER → 2022-05-08 | Outpatient (CLI) | payer BC ==
--- NOTE | 2022-05-08 18:51 | CT ---
EXAMINATION TYPE: CT abdomen pelvis w con CT DLP: 665.10 mGycm, Automated exposure control for dose reduction was used. DATE OF EXAM: 05/08/2022 5:58 PM COMPARISON: 05/12/2018 CLINICAL INDICATION:Female, 52 years old with history of K56.609 unspecified intestinal obstruction; poss intestinal obstruction TECHNIQUE: Axial CT of the abdomen and pelvis. Sagittal and coronal reformats were created on a [employer] workstation. Contrast used:100 mL of Isovue 300 with IV Contrast, Oral contrast used: with Oral Contrast FINDINGS: LOWER CHEST: Unremarkable ABDOMEN LIVER: Unremarkable GALLBLADDER AND BILE DUCTS: Gallbladder is surgically absent with mild intrahepatic and extra hepatic biliary dilatation likely physiologic and a postcholecystectomy change. No evidence of choledocholit hiasis. PANCREAS: Unremarkable. SPLEEN: Unremarkable. ADRENAL GLANDS: Unremarkable. KIDNEYS AND URETERS: No evidence of hydronephrosis or renal calculus. The ureters are unremarkable. PELVIS BLADDER: Unremarkable REPRODUCTIVE: Unremarkable. ABDOMEN & PELVIS STOMACH AND BOWEL: No evidence of bowel obstruction. Stool is seen extending through the colon. There is few scattered clonic diverticula present. Moderate stool burden throughout the colon. PERITONEUM: No evidence of pneumoperitoneum or free fluid. VASCULATURE: No evidence of aortic aneurysm. MUSCULOSKELETAL: No acute osseous abnormalities, post fixation changes to the lower spine spanning L2 -L5. Hardware appears intact. Similar circumferential wall thickening of the sigmoid colon measuring up to 5 mm felt to be related due to underdistention. LYMPH NODES: No gross evidence for lymphadenopathy. SOFT TISSUE/ABDOMINAL WALL: Unremarkable IMPRESSION: 1. No evidence of bowel obstruction, moderate stool burden throughout the colon. 2. Colonic diverticulosis 3. Postsurgical changes of the spine which appears intact.
== END | disposition home or self-care (01) ==
LOC: RADCTMAIN 17:18
PROVIDERS: ATTEND Surgery Plastic and Reconstructive Surgery
DX: K57.30 Diverticulosis of large intestine without perforation or abscess without bleeding (principal)
CPT/HCPCS: 74177; Q9967

== ENCOUNTER → 2022-05-16 | Outpatient (CLI) | payer BC ==
--- NOTE | 2022-05-17 12:44 | CA ---
Transthoracic Echo Report Name: Kayy Goldsmith Age: 52 Gender: F : 1970 Exam Date: 05/16/2022 14:45 Exam Location: [facility] Ht (in): 67 Wt (lb): 173 Ordering Physician: Reji Stone DO Attending/Referring Phys: Constance Thomas PAC Platemaker Yuliana Myles RDCS Procedure CPT: Indications: R07.9 Chest pain, unspecified R53.83 Fatigue Cardiac Hx: Technical Quality: Good Contrast 1: Total Dose (mL): Contrast 2: Total Dose (mL): MEASUREMENTS (Male / Female) Normal Values 2D ECHO LV Diastolic Diameter PLAX 3.9 cm 4.2 - 5.9 / 3.9 - 5.3 cm LV Systolic Diameter PLAX 2.5 cm IVS Diastolic Thickness 1.0 cm 0.6 - 1.0 / 0.6 - 0.9 cm LVPW Diastolic Thickness 1.0 cm 0.6 - 1.0 / 0.6 - 0.9 cm LV Relative Wall Thickness 0.5 LV Diastolic Volume MOD BP 99.8 cm??? 67 - 155 / 56 - 104 cm??? LV Systolic Volume MOD BP 33.6 cm??? 22 - 58 / 19 - 49 cm??? LV Ejection Fraction MOD BP 66.3 % >= 55 % LV Diastolic Volume MOD 4C 97.2 cm??? LV Systolic Volume MOD 4C 28.0 cm??? LV Ejection Fraction MOD 4C 71.2 % LV Diastolic Length 4C 8.2 cm LV Systolic Length 4C 6.5 cm LV Diastolic Volume MOD 2C 101.8 cm??? LV Systolic Volume MOD 2C 40.4 cm??? LV Ejection Fraction MOD 2C 60.3 % LV Diastolic Length 2C 8.3 cm LV Systolic Length 2C 6.7 cm LA Volume 65.6 cm??? 18 - 58 / 22 - 52 cm??? M-MODE Aortic Root Diameter MM 3.3 cm LA Systolic Diameter MM 3.4 cm LA Ao Ratio MM 1.1 MV E Point Septal Separation 0.2 cm AV Cusp Separation MM 2.0 cm DOPPLER AV Peak Velocity 129.2 cm/s AV Peak Gradient 6.7 mmHg MV Area PHT 4.4 cm??? Mitral E Point Velocity 85.3 cm/s Mitral A Point Velocity 73.8 cm/s Mitral E to A Ratio 1.2 MV Deceleration Time 172.5 ms MV E' Velocity 11.1 cm/s Mitral E to MV E' Ratio 7.7 TR Peak Velocity 202.9 cm/s TR Peak Gradient 16.5 mmHg Right Ventricular Systolic Press 21.5 mmHg PV Peak Velocity 90.5 cm/s PV Peak Gradient 3.3 mmHg PI Peak Gradient 12.0 mmHg FINDINGS Left Ventricle Mildly increased septal wall thickness. Left ventricular ejection fraction is estimated at 55-60 %. Left ventricular cavity size normal. Right Ventricle Normal right ventricular size and function. Right Atrium The right atrium is normal in size. Left Atrium Moderately increased left atrial volume. Mitral Valve Structurally normal mitral valve without significant stenosis or prolapse. There is trace mitral regurgitation. Aortic Valve Structurally normal aortic valve without significant sclerosis or stenosis. There is no aortic regurgitation. Tricuspid Valve Structurally normal tricuspid valve without significant stenosis. Pulmonary artery systolic pressure is normal. Trace tricuspid regurgitation. Pulmonic Valve Structurally normal pulmonic valve without significant stenosis. There is no pulmonic regurgitation. Pericardium Normal pericardium without effusion. Aorta Normal aortic root dimension. CONCLUSIONS Left ventricular ejection fraction 55-60% Mild LVH Moderately dilated left atrium Trace mitral regurgitation Trace tricuspid regurgitation RVSP 21 No pericardial effusion Previewed by: Dr. Hoang Nino DO (Electronically Signed) Final Date: 17 May 2022 12:43
== END | disposition home or self-care (01) ==
LOC: RADECHMAIN 14:41
PROVIDERS: ATTEND Family Medicine
DX: I08.1 Rheumatic disorders of both mitral and tricuspid valves (principal)
CPT/HCPCS: 93306

== ENCOUNTER → 2022-07-04 | Outpatient (CLI) | payer BC ==
[2022-07-04 18:07] LABS: Basophils # (A) 0.05 X 10*3/uL (0.00-0.10); Eosinophils % (A) 4.1 %; HCT 38.3 % (37.2-46.3); HGB 12.3 g/dL (12.0-15.0); Immature Grans, Automated 0.2 %; Lymphocytes % (A) 42.8 %; MCH 30.4 pg (27.0-32.0); MCHC 32.1 g/dL (32.0-37.0); MCV 94.6 fL (80.0-97.0); Mean Platelet Volume 9.6 fL (9.5-12.2); Monocytes # (A) 0.34 X 10*3/uL (0.20-1.00); Monocytes % (A) 6.9 %; NRBC Per 100 WBC 0 /100 WBCS (0.0-0.0); Neutrophils # (A) 2.21 X 10*3/uL (1.80-7.70); Platelet Count 216 X 10*3/uL (140-440); RBC 4.05 X 10*6/uL (4.10-5.20); RDW 13.3 % (11.5-14.5); WBC 4.91 X 10*3/uL (4.50-10.00)
[2022-07-04 19:07] LABS: African American GFR (CKD) 122.7 (60.0-200.0); Non-African American GFR(CKD) 105.9 (60.0-200.0)
[2022-07-07 03:34] LABS: Hepatitis BE Antibody Nonreactive (Nonreactive)
[2022-07-07 03:57] LABS: Hepatitis BE Antigen Nonreactive (Nonreactive)
== END | disposition home or self-care (01) ==
LOC: LABWHC1 13:30
PROVIDERS: ATTEND Student in an Organized Health Care Education/Training Program
DX: L40.0 Psoriasis vulgaris (principal)
CPT/HCPCS: 36415; 82565; 84450; 84460; 85025; 86480; 86704; 86707; 87350

== ENCOUNTER → 2022-10-08 | Outpatient (CLI) | payer BC ==
[2022-10-08 15:52] VITALS: BP 113/77; PULSE 55; RESP 13; TEMP 97.7; BMI 28.9
--- NOTE | 2022-10-08 16:45 | P.BASOAP ---
Subjective Progress Note Date: 10/08/22 Has presbyesophagus. Needs dilation from 51 to 60 Fr. May need EGD with dilation. Recommend esophagram. Excision of flank mass bilateral. Objective - Vital Signs Vital signs: Vital Signs Temp 97.7 F 10/08/22 15:43 Pulse 55 L 10/08/22 15:43 Resp 13 10/08/22 15:43 BP 113/77 10/08/22 15:43 Pulse Ox FiO2 Intake & Output 10/07/22 10/08/22 10/08/22 18:59 06:59 18:59 Weight 81.284 kg Assessment/Plan Plan: Date: 10/08/22 Initial Weight: 102.965 kg Initial BMI: 36.6 Current Weight: 81.284 kg Current BMI: 28.9 Type of Surgery: Total Volume in Band: Previous Volume: Volume Removed: Volume Added: Band Size:
== END ==
LOC: BARWHC3 14:46
PROVIDERS: ATTEND Surgery Plastic and Reconstructive Surgery
DX: E66.01 Morbid (severe) obesity due to excess calories (principal); Z68.28 Body mass index [BMI] 28.0-28.9, adult; Z91.040 Latex allergy status; Z91.048 Other nonmedicinal substance allergy status
CPT/HCPCS: 99211

== ENCOUNTER → 2022-11-20 | Outpatient (CLI) | payer BC ==
[2022-11-20 22:53] LABS: Basophils # (A) 0.04 X 10*3/uL (0.00-0.10); Basophils % (A) 0.9 %; Eosinophils # (A) 0.17 X 10*3/uL (0.04-0.35); Eosinophils % (A) 3.7 %; HCT 40.6 % (37.2-46.3); HGB 13.1 g/dL (12.0-15.0); Immature Grans, Automated 0.2 %; Lymphocytes # (A) 2.46 X 10*3/uL (0.90-5.00); Lymphocytes % (A) 53.4 %; MCH 31.3 pg (27.0-32.0); MCHC 32.3 g/dL (32.0-37.0); MCV 96.9 fL (80.0-97.0); Mean Platelet Volume 9.4 fL (9.5-12.2); Monocytes # (A) 0.35 X 10*3/uL (0.20-1.00); Monocytes % (A) 7.6 %; NRBC Per 100 WBC 0 /100 WBCS (0.0-0.0); Neutrophils # (A) 1.58 X 10*3/uL (1.80-7.70); Neutrophils % (A) 34.2 %; Platelet Count 215 X 10*3/uL (140-440); RBC 4.19 X 10*6/uL (4.10-5.20); RDW 12.1 % (11.5-14.5); WBC 4.61 X 10*3/uL (4.50-10.00)
[2022-11-20 23:21] LABS: African American GFR (CKD) 120.6 (60.0-200.0); Albumin 4.4 g/dL (3.8-4.9); Albumin/Globulin Ratio 1.83 (1.60-3.17); Anion Gap 8.5 mmol/L (10.00-18.00); BUN/Creat Ratio 29.5 Ratio (12.00-20.00); Blood Urea Nitrogen 17.7 mg/dL (9.0-27.0); Carbon Dioxide 28.5 mmol/L (20.0-27.5); Globulin 2.4 g/dL (1.6-3.3); Non-African American GFR(CKD) 104.1 (60.0-200.0); Potassium 4.2 mmol/L (3.5-5.5); Total Bilirubin 0.3 mg/dL (0.30-1.20); Total Protein 6.8 g/dL (6.2-8.2)
== END | disposition home or self-care (01) ==
LOC: LABWHC1 13:22
PROVIDERS: ATTEND Surgery Plastic and Reconstructive Surgery
DX: Z01.812 Encounter for preprocedural laboratory examination (principal); R00.1 Bradycardia, unspecified
CPT/HCPCS: 36415; 80053; 85025; 93005

== ENCOUNTER → 2022-11-24 | Day surgery (SDC) | payer BC ==
[~2022-11-24] MED LIST changes: +ACETAMINOPHEN TAB 500 MG TAB PO STA; +BUPIVACAINE (PF) 0.25% 30 ML VIAL SQ ONE; +DEXAMETHASONE SOD PHOSPHATE 4 MG/ML 1 ML VIAL IV ONE; +DEXAMETHASONE SOD PHOSPHATE 4 MG/ML 1 ML VIAL IVP ONE; +GABAPENTIN 300 MG CAP PO STA; +GLYCOPYRROLATE 0.2 MG/ML 2 ML VIAL ONE; +HEPARIN SODIUM,PORCINE/PF 5,000 UNIT/0.5 ML SYRINGE SQ PRN; +HYDROmorphone 0.5 MG/0.5 ML SYRINGE IVP PRN; -IRON SUCROSE 300 MG in SODIUM CHLORIDE 0.9% 250 ML IVPB NR; +LACTATED RINGERS 1,000 ML IV ONE; +LACTATED RINGERS 1,000 ML IV SCH; +LIDOCAINE 1% (10MG/ML) FOR IV START INTRADERMA PRN; +LIDOCAINE 2% INJ 20 MG/ML (2 ML VIAL) ONE; +METOCLOPRAMIDE 5 MG/ML 2 ML VIAL IVP PRN; +MIDAZOLAM 2 MG/2 ML VIAL ONE; +NEOSTIGMINE 1 MG/ML 10 ML VIAL ONE; +ONDANSETRON 4 MG/2 ML VIAL IVP ONE; +ONDANSETRON 4 MG/2 ML VIAL ONE; +PHENYLEPHRINE-0.9% NACL SYG 1,000 MCG/10 ML SYRINGE ONE; +PROPOFOL 10 MG/ML 20 ML VIAL IV ONE; +Pre Op ABX Message 1 EACH MISC MISCELLANE ONE; +ROCURONIUM 10 MG/ML (5 ML VIAL) IV ONE; -SODIUM CHLORIDE 0.9% 500 ML 500 ML in EMPTY BAG 1 BAG IV PRN; +SUCCINYLCHOLINE CHLORIDE 200 MG/10 ML VIAL IV ONE; +fentaNYL (PF) 50 MCG/ML 2 ML AMP ONE
--- NOTE | 2022-11-24 07:56 | P.GSHP ---
History of Present Illness H&P Date: 11/24/22 CHIEF COMPLAINT: Abdominal flank mass, bilateral HISTORY OF PRESENT ILLNESS: The patient is a 52 year-old female with history of mass along the bilateral flanks for over one year. She presents today for surgical excision. PAST MEDICAL HISTORY: Please see list. PAST SURGICAL HISTORY: Please see list. MEDICATIONS: Please see list. ALLERGIES: Please see list. SOCIAL HISTORY: No illicit drug use FAMILY HISTORY: No reports of Crohn disease or ulcerative colitis. REVIEW OF ORGAN SYSTEMS: CONSTITUTIONAL: No reports of fevers or chills. GI: Denies any blood in stools or constipation. PHYSICAL EXAM: VITAL SIGNS: Stable SKIN: Well perfused. Good skin turgor. Bilateral flank mass, 6 cm Musculoskeletal: No clubbing cyanosis or edema GENERAL: Well developed and in no acute distress. Pleasant. HEENT: No sclera icterus. Extraocular movements grossly intact. Moist buccal mucosa. Head is atraumatic, normocephalic. Hears conversational speech. No nasal drainage. NECK: Supple without lymphadenopathy. No JV distention. CHEST: Non-labored respirations and equal bilateral excursions. CARDIOVASCULAR: Regular rate and rhythm. Palpable 2+ radial pulses. ABDOMEN: Soft. Non-tender. Nondistended. NEUROLOGIC: No focal or lateralizing signs. PSYCH: Appropriate affect. Alert and oriented to person, place and time. ASSESSMENT: 1. Bilateral flank mass PLAN: 1. Will proceed of excision of deep subcutaneous tumor along the right lower quadrant. 2. DVT prophylaxis. 3. Antibiotic prophylaxis. 4. Time of recovery, at least 2 weeks. Past Medical History Past Medical History: Cancer, Fibromyalgia, Skin Disorder, Thyroid Disorder Additional Past Medical History / Comment(s): states occasional chest pain - related to hx of esophageal stricture and spasms, psoriasis, hx migraines, diverticulitis, hx cervical cancer. CHRONIC BACK PAIN. degenerative disk , herniated disk spinal stenosos, hx stomach ulcer, History of Any Multi-Drug Resistant Organisms: MRSA Date of last positivie culture/infection: 2010 MDRO Source:: rt axilla Past Surgical History: Appendectomy, Back Surgery, Bariatric Surgery, Cholecystectomy, Hysterectomy, Tonsillectomy Additional Past Surgical History / Comment(s): back surgeries with hardware: laminectomy/ fusion, GASTRIC BYPASS 04-19-18, EGD, colonoscopy panniculectomy 12-17-20 Past Anesthesia/Blood Transfusion Reactions: Motion Sickness Smoking Status: Never smoker - Past Family History Mother Family Medical History: Cancer Additional Family Medical History / Comment(s): breast Medications and Allergies Home Medications Medication Instructions Recorded Confirmed Type HYDROcodone/APAP 10-325MG [[place] 1 tab PO QID PRN 09/24/16 11/18/22 History 10-325] Thyroid,Pork [[place] Thyroid] 120 mg PO QAM 04/08/18 11/18/22 History SUMAtriptan succinate [Imitrex] 100 mg PO BID PRN 10/05/19 11/18/22 History Omeprazole [PriLOSEC] 40 mg PO DAILY 12/10/20 11/18/22 History Gabapentin [Neurontin] 300 mg PO BID 12/21/20 11/18/22 History Ergocalciferol [Vitamin D2 (1250 50,000 unit PO FR 12/27/20 11/18/22 History Mcg = 40676 Iu)] Temazepam [Restoril] 7.5 mg PO HS 10/08/22 11/18/22 History Allergies Allergy/AdvReac Type Severity Reaction Status Date / Time adhesive Allergy Rash/Hives Verified 11/18/22 14:55 Latex, Natural Rubber Allergy Rash/Hives Verified 11/18/22 14:55
[2022-11-24 09:26] VITALS: RESP 16; TEMP 97.8
--- NOTE | 2022-11-24 12:46 | P.OP ---
Date of Procedure: 11/24/22 Description of Procedure: Date of Procedure: 09/17/18 SURGEON: MARIZA TAMEZ MD MANAGER UNIVERSITY: None. PREOPERATIVE DIAGNOSES: 1. Left flank tumor, 15 cm 2. Chronic pain syndrome 3. Fibromyalgia 4. History of gastric bypass 5. Generalized anxiety disorder 6. Spinal stenosis 7. Atypical chest pain 8. Esophageal dysmotility 9. History of diverticulitis 10. Postoperative nausea or vomiting 11. Psoriasis POSTOPERATIVE DIAGNOSES: 1. Deep subcutaneous left flank tumor, 14 x 7 cm 2. Chronic pain syndrome 3. Fibromyalgia 4. History of gastric bypass 5. Generalized anxiety disorder 6. Spinal stenosis 7. Atypical chest pain 8. Esophageal dysmotility 9. History of diverticulitis 10. Postoperative nausea or vomiting 11. Psoriasis PROCEDURES PERFORMED: 1. Excision of deep subcutaneous left flank mass, 14 x 7 cm 2. Complex closure left flank incision, 16-cm Anesthesia: GETA, local Estimated Blood Loss (ml): 50 Pathology: other (Left flank lipoma) Condition: stable Disposition: floor COMPLICATIONS: None. Operative Findings: 1. Deep subcutaneous tissue lipoma 14 x 7 cm via 16 cm incision along the left flank 2. Patient placed in right lateral decubitus position for excision of tumor INDICATIONS: The patient is a 52-year-old female who presents with symptomatic l arge left flank tumor. Benefits and risks of surgical intervention were described including bleeding, infection. Informed consent was obtained. DESCRIPTION OR PROCEDURE: In the preoperative area, the area of concern was marked with indelible marker. Patient was brought into the operating room. After general induction, she was positioned in right lateral decubitus position. The flank was prepped and draped in a standard sterile fashion with ChloraPrep. Timeout protocol was confirmed with the surgical team regarding the patient's name, procedure to be performed including preoperative medications. DVT prophylaxis was confirmed. A field block was placed of the left flank back. An incision using #10 blade was made along the marking into the dermis and subcutaneous tissue. Electro-Bovie cautery was used to enter deep subcutaneous tissue where a large fatty tumor was removed in total. 0 Vicryl for the deep subcutaneous tissue with upper and lower abdominal flaps were created and mobilized. 3-0 Monocryl was placed in a running subcuticular fashion was placed along the dermis. The skin was cleansed and Exofin tape with liquid was applied for layer closure. The incision was covered with Optifoam dressing. Local anesthetic was placed. At the end of the procedure, needle, sponge, and instrument count was verified correct by surgical supervisor. The patient tolerated the procedure well. Plan - Discharge Summary Discharge Rx Participant: No New Discharge Prescriptions: New Acetaminophen Tab [Tylenol Tab] 1,000 mg PO Q6HR PRN #30 tablet PRN Reason: Pain Continue HYDROcodone/APAP 10-325MG [[place] 10-325] 1 tab PO QID PRN PRN Reason: Pain Thyroid,Pork [[place] Thyroid] 120 mg PO QAM SUMAtriptan succinate [Imitrex] 100 mg PO BID PRN PRN Reason: MIGRAINES Ergocalciferol [Vitamin D2 (1250 Mcg = 67439 Iu)] 50,000 unit PO FR Temazepam [Restoril] 7.5 mg PO HS Omeprazole [PriLOSEC] 40 mg PO DAILY Gabapentin [Neurontin] 300 mg PO BID Discharge Medication List HYDROcodone/APAP 10-325MG [[place] 10-325] 1 tab PO QID PRN 09/24/16 [History] Thyroid,Pork [[place] Thyroid] 120 mg PO QAM 04/08/18 [History] SUMAtriptan succinate [Imitrex] 100 mg PO BID PRN 10/05/19 [History] Omeprazole [PriLOSEC] 40 mg PO DAILY 12/10/20 [History] Gabapentin [Neurontin] 300 mg PO BID 12/21/20 [History] Ergocalciferol [Vitamin D2 (1250 Mcg = 02024 Iu)] 50,000 unit PO FR 12/27/20 [History] Temazepam [Restoril] 7.5 mg PO HS 10/08/22 [History] Acetaminophen Tab [Tylenol Tab] 1,000 mg PO Q6HR PRN #30 tablet 11/24/22 [Rx] [facility]ment[facility]Ref[facility] [place] [facility] [place] [facility] Patient Instructions/Handouts: Excision of Skin Lesion (GEN) Activity/Diet/Wound Care/Special Instructions: DO NOT REMOVE DRESSING. May shower. No bath tub soaks for 2 weeks, December 08 Diet as tolerated. Use Tylenol and ibuprofen or Aleve scheduled for the next 24-48 hours for best pain relief. Use ice along incisions for today to prevent swelling. Discharge Disposition: HOME SELF-CARE
[2022-11-24 13:50] VITALS: BP 131/85; PULSE 70
== END | disposition home or self-care (01) ==
LOC: OR 08:37
PROVIDERS: ATTEND Surgery Plastic and Reconstructive Surgery
DX: D17.1 Benign lipomatous neoplasm of skin and subcutaneous tissue of trunk (principal); G89.4 Chronic pain syndrome; M79.7 Fibromyalgia; F41.1 Generalized anxiety disorder; Z98.84 Bariatric surgery status; K22.4 Dyskinesia of esophagus; M48.00 Spinal stenosis, site unspecified; Z87.19 Personal history of other diseases of the digestive system; L40.9 Psoriasis, unspecified; Z79.899 Other long term (current) drug therapy; E07.9 Disorder of thyroid, unspecified; G43.909 Migraine, unspecified, not intractable, without status migrainosus; Z85.89 Personal history of malignant neoplasm of other organs and systems; Z87.39 Personal history of other diseases of the musculoskeletal system and connective tissue; Z86.14 Personal history of Methicillin resistant Staphylococcus aureus infection; Z90.49 Acquired absence of other specified parts of digestive tract; Z98.890 Other specified postprocedural states; Z98.1 Arthrodesis status; Z80.3 Family history of malignant neoplasm of breast; Z79.890 Hormone replacement therapy; Z91.040 Latex allergy status; Z91.048 Other nonmedicinal substance allergy status
CPT/HCPCS: 21931; 88304; J2250; J0330; J1100; J2710; J0690; J2405; J3010; J2370; J2704; J2001

== ENCOUNTER → 2022-11-28 | Outpatient (CLI) | payer BC ==
[2022-11-28 09:31] VITALS: BP 102/69; PULSE 69; TEMP 97.8; BMI 29.2
--- NOTE | 2022-11-29 07:47 | P.BASOAP ---
Subjective Progress Note Date: 11/28/22 DATE OF SERVICE: 11/28/2022 CHIEF COMPLAINT: Status post left flank mass excision HISTORY OF PRESENT ILLNESS: Kayy Goldsmith is a 52-year-old female who is status post gastric bypass 04/19/2018. She is 5 years out. She is status post panniculectomy for 12/17/2020, 2 years out. She is now status post excision of left flank mass, 11/24/2022. She is post-op day 4. She reports no pain. Her pain i swell-controlled. At her height of 5 foot 6 inches, her ideal body weight is 154 pounds. Her highest weight was 238 pounds, BMI 38.5. Today she is comes in 181 pounds from 169 pounds, 2 years ago. She has gained 12 pounds in 2 years. She has lost 57 pounds lifetime. Her body mass index is reduced from 38.5 to 29.2. Lifetime percent excess weight loss is 68 %. PHYSICAL EXAM: VITAL SIGNS: 5 feet 6 inches, 181 pounds. Body mass index 29.2 Vital Signs Temp 97.8 F 11/28/22 09:26 Pulse 69 11/28/22 09:26 Resp BP 102/69 11/28/22 09:26 Pulse Ox FiO2 GENERAL: Well-developed female in no acute distress. HEENT: No scleral icterus. Extraocular movements grossly intact. Moist buccal mucosa. NECK: Supple without lymphadenopathy. CHEST: Nonlabored respirations. Equal bilateral excursions. CARDIOVASCULAR: Regular rate and rhythm. ABDOMEN: Dressing clean dry and intact. No infection. No cellulitis. No swelling along the left flank. She has swelling along the right flank with subcutaneous mass. MUSCULOSKELETAL: No cludding, cyanosis or edema. NEURO: No focal or lateralizing signs. Cranial nerves II through XII grossly within normal limits. PSYCH: Alert and oriented to person, place, and time. SKIN: Well perfused. Good skin turgor. ASSESSMENT: 1. Morbid obesity due to excess calories. 2. Body mass index of 38.5 to 29.2 3. Chronic pain syndrome 4. Status post gastric bypass 5. Status post panniculectomy, 4 pounds PLAN: 1. Recommend 1 month recovery for excision along right flank mass. 2. Discontinue foam dressing Thursday, 4 days. 3. Discontinue tape dressing 2 weeks. 4. Follow up closely with nurse visit. 5. Patient notified of my leave of absence with instructions for follow-up Objective - Vital Signs Vital signs: Vital Signs Temp 97.8 F 11/28/22 09:26 Pulse 69 11/28/22 09:26 Resp BP 102/69 11/28/22 09:26 Pulse Ox FiO2 Intake & Output 11/28/22 11/29/22 11/29/22 18:59 06:59 18:59 Weight 82.191 kg Assessment/Plan Plan: Date: 11/28/22 Initial Weight: 102.965 kg Initial BMI: 36.6 Current Weight: 82.191 kg Current BMI: 29.2 Type of Surgery: Total Volume in Band: Previous Volume: Volume Removed: Volume Added: Band Size:
== END ==
LOC: BARWHC3 08:52
PROVIDERS: ATTEND Surgery Plastic and Reconstructive Surgery
DX: E66.01 Morbid (severe) obesity due to excess calories (principal); Z68.35 Body mass index [BMI] 35.0-35.9, adult; Z98.84 Bariatric surgery status
CPT/HCPCS: 99211

== ENCOUNTER → 2022-12-31 | Outpatient (CLI) | payer BC ==
[2022-12-31 14:17] VITALS: BP 120/67; PULSE 59; TEMP 97.8; BMI 29.2
--- NOTE | 2022-12-31 14:53 | P.BASOAP ---
Subjective Progress Note Date: 12/31/22 She comes in with troubles of mass along the right flank. Recommend excision of the right flank. Recommend dietary correction. She was down to 158 pounds. Recommend protein. Objective - Vital Signs Vital signs: Vital Signs Temp 97.8 F 12/31/22 14:14 Pulse 59 L 12/31/22 14:14 Resp BP 120/67 12/31/22 14:14 Pulse Ox FiO2 Intake & Output 12/30/22 12/31/22 12/31/22 18:59 06:59 18:59 Weight 82.1 kg Assessment/Plan Plan: Date: 12/31/22 Initial Weight: 102.965 kg Initial BMI: 36.6 Current Weight: 82.1 kg Current BMI: 29.2 Type of Surgery: Total Volume in Band: Previous Volume: Volume Removed: Volume Added: Band Size:
== END ==
LOC: BARWHC3 13:46
PROVIDERS: ATTEND Surgery Plastic and Reconstructive Surgery
DX: E66.01 Morbid (severe) obesity due to excess calories (principal); Z68.29 Body mass index [BMI] 29.0-29.9, adult; Z91.048 Other nonmedicinal substance allergy status; Z91.040 Latex allergy status
CPT/HCPCS: 99211

== ENCOUNTER → 2023-06-16 | Outpatient (CLI) | payer BC ==
[2023-06-16 20:56] LABS: Basophils # (A) 0.05 X 10*3/uL (0.00-0.10); Eosinophils # (A) 0.24 X 10*3/uL (0.04-0.35); Eosinophils % (A) 4.9 %; HCT 43.2 % (37.2-46.3); HGB 13.7 d/dL (12.0-15.0); Lymphocytes # (A) 2.63 X 10*3/uL (0.90-5.00); Lymphocytes % (A) 53.8 %; MCH 31.1 pg (27.0-32.0); MCHC 31.7 d/dL (32.0-37.0); Mean Platelet Volume 9.7 FL (9.5-12.2); Monocytes % (A) 8.2 %; NRBC Per 100 WBC 0 X 10*3/uL (0.00-0.01); Neutrophils # (A) 1.56 X 10*3/uL (1.80-7.70); Neutrophils % (A) 31.9 %; Platelet Count 219 X 10*3/uL (140-440); RBC 4.41 X 10*6/uL (4.10-5.20); RDW 12.6 % (11.5-14.5); WBC 4.89 X 10*3/uL (4.50-10.00)
[2023-06-16 22:36] LABS: ALT 142 U/L (8-44); AST 77 U/L (13-35)
== END | disposition home or self-care (01) ==
LOC: LABWHC1 11:22
PROVIDERS: ATTEND Dermatology MOHS-Micrographic Surgery
DX: L40.0 Psoriasis vulgaris (principal)
CPT/HCPCS: 36415; 82565; 84450; 84460; 85025; 86480

== ENCOUNTER → 2023-07-15 | Outpatient (CLI) | payer BC ==
[2023-07-16 01:59] LABS: ALT 34 U/L (8-44); AST 23 U/L (13-35)
== END | disposition home or self-care (01) ==
LOC: LABWHC1 13:57
PROVIDERS: ATTEND Nurse Practitioner Family
DX: L40.0 Psoriasis vulgaris (principal)
CPT/HCPCS: 36415; 84450; 84460

== ENCOUNTER → 2024-12-20 | Outpatient (CLI) | payer MEDICARE | END | disposition home or self-care (01) | LOC: LABWHC1 13:44 | PROVIDERS: ATTEND Dermatology MOHS-Micrographic Surgery | DX: L40.0 Psoriasis vulgaris (principal); Z79.899 Other long term (current) drug therapy | CPT/HCPCS: 36415; 86480 ==